=== PATIENT | female | born 1945 | race Caucasian/White ===

== ENCOUNTER 2020-07-16 08:00 | Inpatient (IN) | payer OTHER ==
[2020-07-04 13:11] VITALS: BMI 24.2
--- NOTE | 2020-07-16 07:56 | HP ---
[facility]ellite [facility] - Chief Complaint Chief Complaint: right knee pain - Past Medical History Allergies/Adverse Reactions: Allergies Allergy/AdvReac Type Severity Reaction Status Date / Time Latex, Natural Rubber Allergy Severe BLOOD Verified 07/04/20 13:00 BLISTERS povidone-iodine Allergy Severe BLOOD Verified 07/04/20 13:00 [From Betadine] BLISTES soap [From Betadine] Allergy Severe BLOOD Verified 07/04/20 13:00 BLISTERS - Current Medications Current Medications: Home Medications Medication Instructions Recorded Apixaban [Eliquis] 5 mg PO BID 06/26/19 Metformin HCl [Glucophage] 500 mg PO BID 06/26/19 Metoprolol Tartrate 25 mg PO DAILY 06/26/19 Ramipril 5 mg PO DAILY 06/26/19 Semaglutide [Ozempic] 1 mg SQ WEEKLY 06/26/19 Famotidine 20 mg PO BID 07/04/20 Satellite Physical Exam - Physical Examination General Appearance: Well Nourished, Well Developed, Alert & Oriented x3 ENT: Clear Lung: Normal air movement Extremities: Other (right knee- + swelling, + ttp ,decr rom ,nvi, xrays show grade 4 tricompartmental djd) Neurological: Intact, Alert, Oriented Satellite Impression/Plan - Impression/Plan Impression: right knee djd Operative Procedure: right henry tkr Date to be Performed: 07/16/20
[~2020-07-16 08:00] MED LIST: VANCOMYCIN 1,000 MG VIAL (RESTRICTED TO ID ONLY) IVPB ONE
[2020-07-16] MEDS ORDERED: SODIUM CHLORIDE 0.9% P/F 10 ML VIAL IJ ONE ×3 (08:35→12:43)
[2020-07-16] MEDS ORDERED: DEXAMETHASONE SOD PHOSPHATE 4 MG/1 ML VIAL ONE (08:35)
[2020-07-16] MEDS ORDERED: ceFAZolin SODIUM 1 GM VIAL ONE ×3 (08:35→10:17)
[2020-07-16] MEDS ORDERED: KETOROLAC TROMETHAMINE 30 MG/1 ML VIAL ONE (08:35)
[2020-07-16] MEDS ORDERED: LIDOCAINE HCL/PF 2% SDV 5ML VIAL ONE (08:39)
[2020-07-16] MEDS ORDERED: PROPOFOL 20 ML ONE ×2 (08:40→12:00)
[2020-07-16] MEDS ORDERED: MIDAZOLAM HCL 2 MG/2 ML SINGLE DOSE VIAL ONE ×2 (08:40→09:40)
--- OUTSIDE RECORDS SUMMARY | 2020-07-16 08:56 | XMS ---
:1945 Author Organization [facility] Care Team Providers Name Role Phone [facility], [id number] Unavailable Unavailable BROWN KIDD Unavailable Unavailable THANNEER CORKY, CORKY Unavailable Unavailable Osvaldo, Jenifer GAME TRAPPER Unavailable Unavailable Osvaldo, Jenifer GAME TRAPPER Unavailable Unavailable Osvaldo, Jenifer GAME TRAPPER Unavailable Unavailable Osvaldo, Jenifer GAME TRAPPER Unavailable Unavailable Hutchins, Francisco Unavailable Unavailable Hutchins, Francisco Unavailable Unavailable Hutchins, Francisco Unavailable Unavailable Hutchins, Francisco Unavailable Unavailable Hutchins, Francisco Unavailable Unavailable Hutchins, Francisco Unavailable Unavailable Hutchins, Francisco Unavailable Unavailable Hutchins, Francisco Unavailable Unavailable Hutchins, Francisco Unavailable Unavailable Hutchins, Francisco Unavailable Unavailable Hutchins, Francisco Unavailable Unavailable Re-disclosure Warning The records that you are about to access may contain information from federally- assisted alcohol or drug abuse programs. If such information is present, then the following federally mandated warning applies: This information has been disclosed to you from records protected by federal confidentiality rules (42 CFR part 2). The federal rules prohibit you from making any further disclosure of this information unless further disclosure is expressly permitted by the written consent of the person to whom it pertains or as otherwise permitted by 42 CFR part 2. A general authorization for the release of medical or other information is NOT sufficient for this purpose. The Federal rules restrict any use of the information to criminally investigate or prosecute any alcohol or drug abuse patient.The records that you are about to access may contain highly sensitive health information, the redisclosure of which is protected by Article 27-F of the [facility] Public Health law. If you continue you may haveaccess to information: Regarding HIV / AIDS; Provided by facilities licensed or operated by the [facility] Office of Mental Health; or Provided by the [facility] Office for People With Developmental Disabilities. If such information is present, then the following [facility] mandated warning applies: This information has been disclosed to you from confidential records which are protected by state law. State law prohibits you from making any further disclosure of this information without the specific written consent of the person to whom it pertains, or as otherwise permitted by law. Any unauthorized further disclosure in violation of state law may result in a fine or care home sentence or both. A general authorization for the release of medical or other information is NOT sufficient authorization for further disclosure. Encounters Encounter Providers Location Date Indications Data Source(s ) Attender: Jenifer 07/12/2020 [place] (Avi roadnaye Riley NP 12:00:00 AM EDT Medical S [facility]) Office Attender: Jenifer Riley NP 07/12/2020 12:00:00 AM EDT [facility] ([facility]) Office Attender: Jenifer Riley NP 07/12/2020 12:00:00 AM EDT [facility] ([facility]) Office Attender: Jenifer Riley NP 07/12/2020 12:00:00 AM EDT [facility] ([facility]) Office Attender: Jenifer Riley NP 07/12/2020 12:00:00 AM EDT [facility]) Office Attender: Jenifer Riley NP 07/12/2020 12:00:00 AM EDT [facility] ([facility]) Office Attender: Jenifer Riley NP 07/12/2020 12:00:00 AM EDT [facility]) Office Attender: Jenifer Riley NP 07/12/2020 12:00:00 AM EDT [facility] ([facility]) Office Attender: Jenifer Riley NP 07/12/2020 12:00:00 AM EDT [facility] ([facility]) Office Attender: Jenifer Riley NP 07/12/2020 12:00:00 AM EDT [facility]) Office Attender: Jenifer Riley NP 07/12/2020 12:00:00 AM EDT [facility]) Office Attender: Francisco Hutchins 07/05/2020 12:00:00 AM EDT [facility]) Office Attender: Francisco Hutchins 07/05/2020 12:00:00 AM EDT [facility]) Office Attender: Francisco Hutchins 07/05/2020 12:00:00 AM EDT [facility]) Office Attender: Francisco Hutchins 07/05/2020 12:00:00 AM EDT [facility] ([facility]) Office Attender: Francisco Hutchins 07/05/2020 12:00:00 AM EDT [facility]) Office Attender: Francisco Hutchins 07/05/2020 12:00:00 AM EDT [facility]) Office Attender: Francisco Hutchins 07/05/2020 12:00:00 AM EDT [facility]) Office Attender: Francisco Hutchins 07/05/2020 12:00:00 AM EDT [facility]) Office Attender: Francisco Hutchins 07/05/2020 12:00:00 AM EDT [facility]) Office Attender: Francisco Hutchins 07/05/2020 12:00:00 AM EDT [facility] ([facility]) Office Attender: Francisco Hutchins 07/05/2020 12:00:00 AM EDT [facility] ([facility]) Office Outpatient Attender: BROWN Bruce 05/28/2020 03:41:00 PM [facility] LOPEZdmitter: BROWN BENITEZ [facility] BROWNReferrer: BROWN DASILVA Attender: Jenifer Riley NP 05/28/2020 12:00:00 AM [facility] ([facility]) Office Attender: Jenifer Riley NP 05/28/2020 12:00:00 AM EDT [facility] ([facility]) Office Attender: Jenifer Riley NP 05/28/2020 12:00:00 AM EDT [facility] ([facility]) Office Attender: Jenifer Riley NP 05/28/2020 12:00:00 AM EDT [facility] ([facility]) Office Attender: Jenifer Riley NP 05/28/2020 12:00:00 AM EDT [facility] ([facility]) Office Attender: Jenifer Riley NP 05/28/2020 12:00:00 AM EDT [facility] ([facility]) Office Attender: Jenifer Riley NP 05/28/2020 12:00:00 AM EDT [facility]) Office Attender: Jenifer Riley NP 05/28/2020 12:00:00 AM EDT [facility] ([facility]) Office Attender: Jenifer Riley NP 05/28/2020 12:00:00 AM EDT [facility]) Office Attender: Jenifer Riley NP 05/28/2020 12:00:00 AM EDT [facility] ([facility]) Office Attender: Jenifer Riley NP 05/28/2020 12:00:00 AM EDT [facility] ([facility]) Office Outpatient Attender: MHAW9 [facility] 12/19/2019 01:06:58 PM [facility]) Patient admitted. Outpatient Attender: CORKY Bruce 06/09/2019 09:02:00 AM [facility] MIKAELAdmitter: [facility]ORK[facility] LEEANN BEASLEYeferrer: CORKY FRIED Immunizations Vaccine Date Status Description Data Source(s) IIV3 09/09/2018 12:00:00 AM completed [facility] N ([facility] EST Service) IIV3 09/09/2018 12:00:00 AM completed [facility] N ([facility] EST Service) IIV3 09/09/2018 12:00:00 AM completed [facility] N ([facility]) IIV3 09/09/2018 12:00:00 AM completed [facility] N ([facility] EST Service) Medications Medication Brand Start Product Dose Route Administrative Pharmacy St at Indications Reaction Description Data Name Date Form Instructions Instructions Source(s) metoprolol METOPR 05/28/ TABLET, 30 complet METO PROLOL MEDGEN succinate OLOL 2020 EXTENDED ed SUCCINATE E R ([facility] 25 MG SUCCIN 12:00: RELEASE Medical Extended ATE 00 AM Service) Release ER:866 EDT Oral Tablet 430 METOPROLOL SUCCINATE ER:[id number] Budesonide SYMBIC 05/28/ AEROSOL 1 complet SYMB ICORT MEDGEN 0.16 ORT:59 2019 ed ([facility] MG/ACTUAT / 7829 12:00: Medica l formoterol 00 AM Service) 0.0045 EDT MG/ACTUAT Inhalant Powder SYMBICORT:5 27050 apixaban 5 ELIQUI 05/28/ TABLET 60 complet ELIQU IS MEDGEN MG Oral S:1364 2019 ed ([facility] Tablet 445 12:00: Medical ELIQUIS:136 00 AM Service ) 4445 EDT OZEMPIC (05/28/ SOLUTION 2 complet OZEMP IC (1 MEDGEN MG 2020 ed MG DOSE) ([facility] DOSE): 12:00: Medica l 17 00 AM Service) EDT Ramipril 5 RAMIPR 05/28/ CAPSULE 30 complet RAMI PRIL MEDGEN MG Oral IL:198 2019 ed ([facility] Capsule 189 12:00: Medical RAMIPRIL:19 00 AM Service ) 8189 EDT apixaban 5 ELIQUI 05/28/ TABLET 60 complet ELIQU IS MEDGEN MG Oral S:1364 2019 ed ([facility] Tablet 445 12:00: Medical ELIQUIS:136 00 AM Service ) 4445 EDT metoprolol METOPR 05/28/ TABLET, 30 complet METO PROLOL MEDGEN succinate OLOL 2019 EXTENDED ed SUCCINATE E R ([facility] 25 MG SUCCIN 12:00: RELEASE Medical Extended ATE 00 AM Service) Release ER:866 EDT Oral Tablet 430 METOPROLOL SUCCINATE ER:[id number] OZEMPIC (1 05/28/ SOLUTION 2 complet OZEMP IC (1 MED[facility] MG 2020 ed MG DOSE) ([facility] DOSE): 12:00: Medica l 17 00 AM Service) EDT 200 ACTUAT PROAIR 05/28/ AEROSOL 1 complet PROA IR HFA [facility] Albuterol HFA:74 2019 ed ([place] 0.09 5679 12:00: Medical MG/ACTUAT 00 AM Service) Metered EDT Dose Inhaler PROAIR HFA:[id number] apixaban 5 ELIQUI 05/28/ TABLET 60 complet ELIQU IS MEDGEN MG Oral S:1364 2019 ed ([facility] Tablet 445 12:00: Medical ELIQUIS:136 00 AM Service ) 4445 EDT metoprolol METOPR 05/28/ TABLET, 30 complet METO PROLOL MEDGEN succinate OLOL 2020 EXTENDED ed SUCCINATE E R ([facility] 25 MG SUCCIN 12:00: RELEASE Medical Extended ATE 00 AM Service) Release ER:866 EDT Oral Tablet 430 METOPROLOL SUCCINATE ER:[id number] metoprolol METOPR 05/28/ TABLET, 30 complet METO PROLOL MEDGEN succinate OLOL 2019 EXTENDED ed SUCCINATE E R ([facility] 25 MG SUCCIN 12:00: RELEASE Medical Extended ATE 00 AM Service) Release ER:866 EDT Oral Tablet 430 METOPROLOL SUCCINATE ER:[id number] apixaban 5 ELIQUI 05/28/ TABLET 60 complet ELIQU IS MEDGEN MG Oral S:1364 2019 ed ([facility] Tablet 445 12:00: Medical ELIQUIS:136 00 AM Service ) 4445 EDT 200 ACTUAT PROAIR 05/28/ AEROSOL 1 complet PROA IR HFA MEDGEN Albuterol HFA:74 2019 ed ([place] 0.09 5679 12:00: Medical MG/ACTUAT 00 AM Service) Metered EDT Dose Inhaler PROAIR HFA:786469 OZEMPIC (1 05/28/ SOLUTION 2 complet OZEMP IC (1 MEDGEN MG 2020 ed MG DOSE) ([facility] DOSE): 12:00: Medica l 17 00 AM Service) EDT Ramipril 5 RAMIPR 05/28/ CAPSULE 30 complet RAMI PRIL MEDGEN MG Oral IL:198 2019 ed ([facility] Capsule 189 12:00: Medical RAMIPRIL:19 00 AM Service ) 8189 EDT Budesonide SYMBIC 05/28/ AEROSOL 1 complet SYMB ICORT MEDGEN 0.16 ORT:59 2019 ed ([facility] MG/ACTUAT / 7829 12:00: Medica l formoterol 00 AM Service) 0.0045 EDT MG/ACTUAT Inhalant Powder SYMBICORT:5 51898 200 ACTUAT PROAIR 05/28/ AEROSOL 1 complet PROA IR HFA MED[facility] Albuterol HFA:74 2019 ed ([place] 0.09 5679 12:00: Medical MG/ACTUAT 00 AM Service) Metered EDT Dose Inhaler PROAIR HFA:930535 OZEMPIC (1 05/28/ SOLUTION 2 complet OZEMP IC (1 MEDGEN MG 2020 ed MG DOSE) ([facility] DOSE): 12:00: Medica l 17 00 AM Service) EDT 200 ACTUAT PROAIR 05/28/ AEROSOL 1 complet PROA IR HFA MED[facility] Albuterol HFA:74 2019 ed ([place] 0.09 5679 12:00: Medical MG/ACTUAT 00 AM Service) Metered EDT Dose Inhaler PROAIR HFA:860395 Ramipril 5 RAMIPR 05/28/ CAPSULE 30 complet RAMI PRIL MEDGEN MG Oral IL:198 2019 ed ([facility] Capsule 189 12:00: Medical RAMIPRIL:19 00 AM Service ) 8189 EDT Budesonide SYMBIC 05/28/ AEROSOL 1 complet SYMB ICORT MEDGEN 0.16 ORT:59 2019 ed ([facility] MG/ACTUAT / 7829 12:00: Medica l formoterol 00 AM Service) 0.0045 EDT MG/ACTUAT Inhalant Powder SYMBICORT:5 87952 Budesonide SYMBIC 05/28/ AEROSOL 1 complet SYMB ICORT MEDGEN 0.16 ORT:59 2019 ed ([facility] MG/ACTUAT / 7829 12:00: Medica l formoterol 00 AM Service) 0.0045 EDT MG/ACTUAT Inhalant Powder SYMBICORT:5 30998 Ramipril 5 RAMIPR 05/28/ CAPSULE 30 complet RAMI PRIL MEDGEN MG Oral IL:198 2019 ed ([facility] Capsule 189 12:00: Medical RAMIPRIL:19 00 AM Service ) 8189 EDT Doxepin DOXEPI 11/23/ CAPSULE 30 complet DOXEPIN MEDGEN Hydrochlori N:1000 2019 ed ([facility] [address] de 10 MG 048 12:00: Medical Oral 00 AM Service) Capsule EST DOXEPIN:100 0048 Doxepin DOXEPI 11/23/ CAPSULE 30 complet DOXEPIN MEDGEN Hydrochlori N:1000 2019 ed ([address] de 10 MG 048 12:00: Medical Oral 00 AM Service) Capsule EST DOXEPIN:100 0048 Doxepin DOXEPI 11/23/ CAPSULE 30 complet DOXEPIN MEDGEN Hydrochlori N:1000 2019 ed ([address] de 10 MG 048 12:00: Medical Oral 00 AM Service) Capsule EST DOXEPIN:100 0048 Doxepin DOXEPI 11/23/ CAPSULE 30 complet DOXEPIN MEDGEN Hydrochlori N:1000 2019 ed ([facility] way de 10 MG 048 12:00: Medical Oral 00 AM Service) Capsule EST DOXEPIN:100 0048 apixaban 5 ELIQUI 07/25/ TABLET 60 complet ELIQU IS MEDGEN MG Oral S:[id number] ed ([facility] Tablet 447 12:00: Medical [Eliquis] 00 AM Service) ELIQUIS:136 EDT 4447 24 HR METOPR 07/25/ TABLET, 30 complet METOPROLO L MEDGEN metoprolol OLOL 2019 EXTENDED ed SUCCINATE ER ([facility] succinate SUCCIN 12:00: RELEASE Med ical 25 MG ATE 00 AM Service) Extended ER:866 EDT Release 427 Oral Tablet METOPROLOL SUCCINATE ER:[id number] apixaban 5 ELIQUI 07/25/ TABLET 60 complet ELIQU IS MEDGEN MG Oral S:1363 2018 ed ([facility] Tablet 447 12:00: Medical [Eliquis] 00 AM Service) ELIQUIS:136 EDT 4447 24 HR METOPR 07/25/ TABLET, 30 complet METOPROLO L MEDGEN metoprolol OLOL 2018 EXTENDED ed SUCCINATE ER ([facility] succinate SUCCIN 12:00: RELEASE Med ical 25 MG ATE 00 AM Service) Extended ER:866 EDT Release 427 Oral Tablet METOPROLOL SUCCINATE ER:035518 apixaban 5 ELIQUI 07/25/ TABLET 60 complet ELIQU IS MEDGEN MG Oral S:1363 2018 ed ([facility] Tablet 447 12:00: Medical [Eliquis] 00 AM Service) ELIQUIS:136 EDT 4447 24 HR METOPR 07/25/ TABLET, 30 complet METOPROLO L MED[facility] metoprolol OLOL 2019 EXTENDED ed SUCCINATE ER ([facility] succinate SUCCIN 12:00: RELEASE Med ical 25 MG ATE 00 AM Service) Extended ER:866 EDT Release 427 Oral Tablet METOPROLOL SUCCINATE ER:[id number] apixaban 5 ELIQUI 07/25/ TABLET 60 complet ELIQU IS MEDGEN MG Oral S:1363 2018 ed ([facility] Tablet 447 12:00: Medical [Eliquis] 00 AM Service) ELIQUIS:136 EDT 4447 24 HR METOPR 07/25/ TABLET, 30 complet METOPROLO L MED[facility] metoprolol OLOL 2019 EXTENDED ed SUCCINATE ER ([facility] succinate SUCCIN 12:00: RELEASE Med ical 25 MG ATE 00 AM Service) Extended ER:866 EDT Release 427 Oral Tablet METOPROLOL SUCCINATE ER:050908 pitavastati LIVALO 09/09/ TABLET 90 complet LIVA LO MEDGEN n 2 MG Oral :59537 2017 ed ([facility] Tablet 0 12:00: Medical [Livalo] 00 AM Service) LIVALO:8616 EST 50 pitavastati LIVALO 09/09/ TABLET 90 complet LIVA LO MEDGEN n 2 MG Oral :16540 2017 ed ([facility] [address] Tablet 0 12:00: Medical [Livalo] 00 AM Service) LIVALO:8616 EST 50 pitavastati LIVALO 09/09/ TABLET 90 complet LIVA LO MEDGEN n 2 MG Oral :27439 2017 ed ([facility] [address] Tablet 0 12:00: Medical [Livalo] 00 AM Service) LIVALO:8616 EST 50 pitavastati LIVALO 09/09/ TABLET 90 complet LIVA LO MEDGEN n 2 MG Oral :67295 2017 ed ([facility] [address] Tablet 0 12:00: Medical [Livalo] 00 AM Service) LIVALO:8616 EST 50 Insurance Providers Payer name Policy type Policy ID Covered Covered constitution party's Policy P michael / Coverage constitution party ID relationship to [place]ar Inf ormation type villar MEDICAID OF [id number] 1 [id number] [place] [id number] 1 [id number] PART B 4 DOWNSTATE MEDICARE [id number] SP [id number] 84 4 MEDICAID [id number] SP [id number] MEDICARE [id number] SP [id number] 84 4 M [id number] 01 [id number] 84 4 W [id number] 01 [id number] 84 4 Problems, Conditions, and Diagnoses Code Display Name Description Problem Type Effective Data Dates Source(s) R94.31 Abnormal ABNORMAL Problem 05/28/2020 [facility] electrocardiogram ELECTROCARDIOGRAM 12:00:00 AM ([facility] [ECG] [EKG] [ECG] [EKG] EDT Medical Service) R94.31 Abnormal ABNORMAL Problem 05/28/2020 [facility] electrocardiogram ELECTROCARDIOGRAM 12:00:00 AM ([facility] [ECG] [EKG] [ECG] [EKG] EDT Medical Service) R94.31 Abnormal ABNORMAL Problem 05/28/2020 [facility] electrocardiogram ELECTROCARDIOGRAM 12:00:00 AM ([facility] [ECG] [EKG] [ECG] [EKG] EDT Medical Service) R94.31 Abnormal ABNORMAL Problem 05/28/2020 [facility] electrocardiogram ELECTROCARDIOGRAM 12:00:00 AM ([facility] [ECG] [EKG] [ECG] [EKG] EDT Medical Service) I48.0 Paroxysmal atrial PAROXYSMAL ATRIAL Problem 11/23/2019 [facility] fibrillation FIBRILLATION 12:00:00 AM ([facility] Medical Service) F41.9 Anxiety disorder, ANXIETY DISORDER, Problem 11/23/2019 [facility] unspecified UNSPECIFIED 12:00:00 AM ([facility] Medical Service) I48.0 Paroxysmal atrial PAROXYSMAL ATRIAL Problem 11/23/2019 [facility] fibrillation FIBRILLATION 12:00:00 AM ([facility] Medical Service) F41.9 Anxiety disorder, ANXIETY DISORDER, Problem 11/23/2019 [facility] unspecified UNSPECIFIED 12:00:00 AM ([facility] Medical Service) I48.0 Paroxysmal atrial PAROXYSMAL ATRIAL Problem 11/23/2019 [facility] fibrillation FIBRILLATION 12:00:00 AM ([facility] Medical Service) F41.9 Anxiety disorder, ANXIETY DISORDER, Problem 11/23/2019 [facility] unspecified UNSPECIFIED 12:00:00 AM ([facility] Medical Service) I48.0 Paroxysmal atrial PAROXYSMAL ATRIAL Problem 11/23/2019 [facility] fibrillation FIBRILLATION 12:00:00 AM ([facility] Medical Service) F41.9 Anxiety disorder, ANXIETY DISORDER, Problem 11/23/2019 [facility] unspecified UNSPECIFIED 12:00:00 AM ([facility] Medical Service) M25.50 Pain in unspecified PAIN IN UNSPECIFIED Problem 019 MEDGEN joint JOINT 12:00:00 AM ([facility] Medical Service) M25.50 Pain in unspecified PAIN IN UNSPECIFIED Problem 019 MEDGEN joint JOINT 12:00:00 AM ([facility] Medical Service) M25.50 Pain in unspecified PAIN IN UNSPECIFIED Problem 019 MEDGEN joint JOINT 12:00:00 AM ([facility] Medical Service) M25.50 Pain in unspecified PAIN IN UNSPECIFIED Problem 019 MEDGEN joint JOINT 12:00:00 AM ([facility] EDT Medical Service) J06.9 Acute upper ACUTE UPPER Problem 11/19/2018 [facility] respiratory RESPIRATORY 12:00:00 AM ([facility] infection, INFECTION, EST Medical unspecified UNSPECIFIED Service) J06.9 Acute upper ACUTE UPPER Problem 11/19/2018 [facility] respiratory RESPIRATORY 12:00:00 AM ([facility] infection, INFECTION, EST Medical unspecified UNSPECIFIED Service) J06.9 Acute upper ACUTE UPPER Problem 11/19/2018 [facility] respiratory RESPIRATORY 12:00:00 AM ([facility] infection, INFECTION, EST Medical unspecified UNSPECIFIED Service) J06.9 Acute upper ACUTE UPPER Problem 11/19/2018 [facility] respiratory RESPIRATORY 12:00:00 AM ([facility] infection, INFECTION, EST Medical unspecified UNSPECIFIED Service) N32.81 Overactive bladder OVERACTIVE BLADDER Problem 8 MEDGEN 12:00:00 AM ([facility] Medical Service) N39.3 Stress incontinence STRESS INCONTINENCE Problem 018 MEDGEN (female) (male) (FEMALE) (MALE) 12:00:00 AM ([facility] Medical Service) N32.81 Overactive bladder OVERACTIVE BLADDER Problem 8 MEDGEN 12:00:00 AM ([facility] Medical Service) N39.3 Stress incontinence STRESS INCONTINENCE Problem 018 MEDGEN (female) (male) (FEMALE) (MALE) 12:00:00 AM ([facility] Medical Service) N32.81 Overactive bladder OVERACTIVE BLADDER Problem 8 MEDGEN 12:00:00 AM ([facility] Medical Service) N39.3 Stress incontinence STRESS INCONTINENCE Problem 018 MEDGEN (female) (male) (FEMALE) (MALE) 12:00:00 AM ([facility] Medical Service) N32.81 Overactive bladder OVERACTIVE BLADDER Problem 8 MEDGEN 12:00:00 AM ([facility] Medical Service) N39.3 Stress incontinence STRESS INCONTINENCE Problem 018 MEDGEN (female) (male) (FEMALE) (MALE) 12:00:00 AM ([facility] Medical Service) R10.31 Right lower quadrant RIGHT LOWER QUADRANT Problem 09/09 MEDGEN pain PAIN 12:00:00 AM ([facility] Medical Service) R10.31 Right lower quadrant RIGHT LOWER QUADRANT Problem 09/09 MEDGEN pain PAIN 12:00:00 AM ([facility] Medical Service) R10.31 Right lower quadrant RIGHT LOWER QUADRANT Problem 09/09 MEDGEN pain PAIN 12:00:00 AM ([facility] Medical Service) R10.31 Right lower quadrant RIGHT LOWER QUADRANT Problem 09/09 MEDGEN pain PAIN 12:00:00 AM ([facility] Medical Service) I10 Essential (primary) ESSENTIAL (PRIMARY) Problem 018 MEDGEN hypertension HYPERTENSION 12:00:00 AM ([facility] Medical Service) I10 Essential (primary) ESSENTIAL (PRIMARY) Problem 018 MEDGEN hypertension HYPERTENSION 12:00:00 AM ([facility] Medical Service) I10 Essential (primary) ESSENTIAL (PRIMARY) Problem 018 MEDGEN hypertension HYPERTENSION 12:00:00 AM ([facility] Medical Service) I10 Essential (primary) ESSENTIAL (PRIMARY) Problem 018 MEDGEN hypertension HYPERTENSION 12:00:00 AM ([facility] Medical Service) N76.0 Acute vaginitis ACUTE VAGINITIS Problem 07/19/2017 MEDG EN 12:00:00 AM ([facility] Medical Service) N76.0 Acute vaginitis ACUTE VAGINITIS Problem 07/19/2017 MEDG EN 12:00:00 AM ([facility] Medical Service) N76.0 Acute vaginitis ACUTE VAGINITIS Problem 07/19/2017 MEDG EN 12:00:00 AM ([facility] Medical Service) N76.0 Acute vaginitis ACUTE VAGINITIS Problem 07/19/2017 MEDG EN 12:00:00 AM ([facility] Medical Service) Z13.89 Encounter for ENCOUNTER FOR Problem 02/23/2017 [facility] screening for other SCREENING FOR OTHER 12:00:0 0 AM ([facility] disorder DISORDER [facility] Medical Service) Z13.89 Encounter for ENCOUNTER FOR Problem 02/23/2017 MED[facility] screening for other SCREENING FOR OTHER 12:00:0 0 AM ([facility] disorder DISORDER T Medical Service) Z13.89 Encounter for ENCOUNTER FOR Problem 02/23/2017 MED[facility] screening for other SCREENING FOR OTHER 12:00:0 0 AM ([facility] disorder DISORDER EDT Medical Service) Z13.89 Encounter for ENCOUNTER FOR Problem 02/23/2017 [facility] screening for other SCREENING FOR OTHER 12:00:0 0 AM ([facility] disorder DISORDER EDT Medical Service) E11.9 Type 2 diabetes TYPE 2 DIABETES Problem 07/08/2016 MEDG EN mellitus without MELLITUS WITHOUT 12:00:00 AM ( [facility] complications COMPLICATIONS EDT Medical Service) E11.9 Type 2 diabetes TYPE 2 DIABETES Problem 07/08/2016 MEDG EN mellitus without MELLITUS WITHOUT 12:00:00 AM ( [facility] complications COMPLICATIONS EDT Medical Service) E11.9 Type 2 diabetes TYPE 2 DIABETES Problem 07/08/2016 MEDG EN mellitus without MELLITUS WITHOUT 12:00:00 AM ( [facility] complications COMPLICATIONS EDT Medical Service) E11.9 Type 2 diabetes TYPE 2 DIABETES Problem 07/08/2016 MEDG EN mellitus without MELLITUS WITHOUT 12:00:00 AM ( [facility] complications COMPLICATIONS EDT Medical Service) E78.2 Mixed hyperlipidemia MIXED HYPERLIPIDEMIA Problem 05/08 MEDGEN 12:00:00 AM ([facility] EDT Medical Service) J44.9 Chronic obstructive CHRONIC OBSTRUCTIVE Problem 016 MED[facility] pulmonary disease, PULMONARY DISEASE, 12:00:00 AM ([facility] unspecified UNSPECIFIED EDT Medical Service) E78.2 Mixed hyperlipidemia MIXED HYPERLIPIDEMIA Problem 05/08 MEDGEN 12:00:00 AM ([facility] EDT Medical Service) J44.9 Chronic obstructive CHRONIC OBSTRUCTIVE Problem 016 MEDGEN pulmonary disease, PULMONARY DISEASE, 12:00:00 AM ([facility] unspecified UNSPECIFIED EDT Medical Service) E78.2 Mixed hyperlipidemia MIXED HYPERLIPIDEMIA Problem 05/08 MEDGEN 12:00:00 AM ([facility] EDT Medical Service) J44.9 Chronic obstructive CHRONIC OBSTRUCTIVE Problem 016 MEDGEN pulmonary disease, PULMONARY DISEASE, 12:00:00 AM ([facility] unspecified UNSPECIFIED EDT Medical Service) E78.2 Mixed hyperlipidemia MIXED HYPERLIPIDEMIA Problem 05/08 MEDGEN 12:00:00 AM ([facility] EDT Medical Service) J44.9 Chronic obstructive CHRONIC OBSTRUCTIVE Problem 016 MEDGEN pulmonary disease, PULMONARY DISEASE, 12:00:00 AM ([facility] unspecified UNSPECIFIED EDT Medical Service) Z01.810 Encounter for ENCOUNTER FOR Diagnosis 05/28/2020 [facility] preprocedural PREPROCEDURAL 03:41:00 PM [facility] cardiovascular CARDIOVASCULAR T [facility] l examination EXAMINATION Center Z01.818 Encounter for other ENCOUNTER FOR OTHER Diagnosis preprocedural PREPROCEDURAL 09:02:00 AM [facility] examination EXAMINATION [facility] Medical [place] J44.9 Chronic obstructive CHRONIC OBSTRUCTIVE Diagnosis pulmonary disease, PULMONARY DISEASE, 09:02:00 AM [facility] unspecified UNSPECIFIED [facility] Surgeries/Procedures Procedure Description Date Indications Data Source(s) Documentation of current 07/05/2020 MED GEN (Jonny medications (procedure) 12:00:00 AM EDT edical Service) Documentation of current 07/05/2020 MED GEN (Dante medications (procedure) 12:00:00 AM EDT edical Service) Documentation of current 07/05/2020 MED GEN (Dante medications (procedure) 12:00:00 AM EDT edical Service) Documentation of current 07/05/2020 MED GEN (Dante medications (procedure) 12:00:00 AM EDT edical Service) Documentation of current 07/05/2020 MED GEN (Jonny medications (procedure) 12:00:00 AM EDT edical Service) Documentation of current 07/05/2020 MED GEN (Jonny medications (procedure) 12:00:00 AM EDT edical Service) Documentation of current 07/05/2020 MED GEN (Jonny medications (procedure) 12:00:00 AM EDT edical Service) Documentation of current 07/05/2020 MED GEN (Jonny medications (procedure) 12:00:00 AM EDT edical Service) Documentation of current 07/05/2020 MED GEN (Dante medications (procedure) 12:00:00 AM EDT edical Service) Documentation of current 07/05/2020 MED GEN (Jonny medications (procedure) 12:00:00 AM EDT edical Service) Documentation of current 07/05/2020 MED GEN (Jonny medications (procedure) 12:00:00 AM EDT edical Service) Documentation of current 07/05/2020 MED GEN (Dante medications (procedure) 12:00:00 AM EDT edical Service) Documentation of current 07/05/2020 MED GEN (Jonny medications (procedure) 12:00:00 AM EDT edical Service) Documentation of current 07/05/2020 MED GEN (Dante medications (procedure) 12:00:00 AM EDT edical Service) Documentation of current 05/28/2020 MED GEN (Jonny medications (procedure) 12:00:00 AM EDT edical Service) Documentation of current 05/28/2020 MED GEN (Dante medications (procedure) 12:00:00 AM EDT edical Service) Documentation of current 05/28/2020 MED GEN (Jonny medications (procedure) 12:00:00 AM EDT edical Service) Documentation of current 05/28/2020 MED GEN (Dante medications (procedure) 12:00:00 AM EDT edical Service) Documentation of current 05/28/2020 MED GEN (Jonny medications (procedure) 12:00:00 AM EDT edical Service) Documentation of current 05/28/2020 MED GEN (Jonny medications (procedure) 12:00:00 AM EDT edical Service) Documentation of current 05/28/2020 MED GEN (Dante medications (procedure) 12:00:00 AM EDT edical Service) Documentation of current 05/28/2020 MED GEN (Jonny medications (procedure) 12:00:00 AM EDT edical Service) Documentation of current 05/28/2020 MED GEN (Jonny medications (procedure) 12:00:00 AM EDT edical Service) Documentation of current 05/28/2020 MED GEN (Dante medications (procedure) 12:00:00 AM EDT edical Service) Documentation of current 05/28/2020 MED GEN (Dante medications (procedure) 12:00:00 AM EDT edical Service) Documentation of current 05/28/2020 MED GEN (Dante medications (procedure) 12:00:00 AM EDT edical Service) Documentation of current 05/28/2020 MED GEN (Jonny medications (procedure) 12:00:00 AM EDT edical Service) Documentation of current 05/28/2020 MED GEN (Jonny medications (procedure) 12:00:00 AM EDT edical Service) Documentation of current 05/28/2020 MED GEN (Dante medications (procedure) 12:00:00 AM EDT edical Service) Documentation of current 05/28/2020 MED GEN (Jonny medications (procedure) 12:00:00 AM EDT M edical Service) Documentation of current 11/23/2019 MED GEN (Dante medications (procedure) 12:00:00 AM EST edical Service) Documentation of current 11/23/2019 MED GEN (Jonny medications (procedure) 12:00:00 AM EST edical Service) Documentation of current 11/23/2019 MED GEN (Jonny medications (procedure) 12:00:00 AM EST edical Service) Documentation of current 11/23/2019 MED GEN (Dante medications (procedure) 12:00:00 AM EST edical Service) Documentation of current 11/23/2019 MED GEN (Dante medications (procedure) 12:00:00 AM EST edical Service) Documentation of current 11/23/2019 MED GEN (Jonny medications (procedure) 12:00:00 AM EST edical Service) Documentation of current 11/23/2019 MED GEN (Jonny medications (procedure) 12:00:00 AM EST edical Service) Documentation of current 11/23/2019 MED GEN (Dante medications (procedure) 12:00:00 AM EST edical Service) Documentation of current 11/23/2019 MED GEN (Jonny medications (procedure) 12:00:00 AM EST edical Service) Documentation of current 11/23/2019 MED GEN (Dante medications (procedure) 12:00:00 AM EST edical Service) Documentation of current 11/23/2019 MED GEN (Jonny medications (procedure) 12:00:00 AM EST edical Service) Documentation of current 11/23/2019 MED GEN (Dante medications (procedure) 12:00:00 AM EST edical Service) Documentation of current 11/23/2019 MED GEN (Dante medications (procedure) 12:00:00 AM EST edical Service) Documentation of current 11/23/2019 MED GEN (Dante medications (procedure) 12:00:00 AM EST edical Service) Documentation of current 11/23/2019 MED GEN (Jonny medications (procedure) 12:00:00 AM EST edical Service) Documentation of current 11/23/2019 MED GEN (Jonny medications (procedure) 12:00:00 AM EST edical Service) Documentation of current 11/23/2019 MED GEN (Dante medications (procedure) 12:00:00 AM EST M edical Service) Documentation of current 11/23/2019 MED GEN (Dante medications (procedure) 12:00:00 AM EST edical Service) Documentation of current 11/23/2019 MED GEN (Dante medications (procedure) 12:00:00 AM EST edical Service) Documentation of current 11/23/2019 MED GEN (Jonny medications (procedure) 12:00:00 AM EST edical Service) Documentation of current 11/23/2019 MED GEN (Dante medications (procedure) 12:00:00 AM [facility] edical Service) Documentation of current 11/23/2019 MED GEN (Jonny medications (procedure) 12:00:00 AM EST edical Service) Documentation of current 11/23/2019 MED GEN (Jonny medications (procedure) 12:00:00 AM EST edical Service) Documentation of current 11/23/2019 MED GEN (Jonny medications (procedure) 12:00:00 AM [facility] edical Service) Documentation of current 05/25/2019 MED GEN (Dante medications (procedure) 12:00:00 AM EDT edical Service) Documentation of current 05/25/2019 MED GEN (Dante medications (procedure) 12:00:00 AM EDT edical Service) Documentation of current 05/25/2019 MED GEN (Dante medications (procedure) 12:00:00 AM EDT edical Service) Documentation of current 05/25/2019 MED GEN (Dante medications (procedure) 12:00:00 AM EDT edical Service) Documentation of current 05/25/2019 MED GEN (Dante medications (procedure) 12:00:00 AM EDT edical Service) Documentation of current 05/25/2019 MED GEN (Dante medications (procedure) 12:00:00 AM EDT edical Service) Documentation of current 05/25/2019 MED GEN (Jonny medications (procedure) 12:00:00 AM EDT edical Service) Documentation of current 05/25/2019 MED GEN (Dante medications (procedure) 12:00:00 AM EDT edical Service) Documentation of current 05/25/2019 MED GEN (Dante medications (procedure) 12:00:00 AM EDT edical Service) Documentation of current 05/25/2019 MED GEN (Jonny medications (procedure) 12:00:00 AM EDT edical Service) Documentation of current 05/25/2019 MED GEN (Jonny medications (procedure) 12:00:00 AM EDT edical Service) Documentation of current 05/25/2019 MED GEN (Jonny medications (procedure) 12:00:00 AM EDT edical Service) Documentation of current 05/25/2019 MED GEN (Jonny medications (procedure) 12:00:00 AM EDT edical Service) Documentation of current 05/25/2019 MED GEN (Dante medications (procedure) 12:00:00 AM EDT edical Service) Documentation of current 05/25/2019 MED GEN (Jonny medications (procedure) 12:00:00 AM EDT edical Service) Documentation of current 05/25/2019 MED GEN (Dante medications (procedure) 12:00:00 AM EDT edical Service) Documentation of current 05/25/2019 MED GEN (Dante medications (procedure) 12:00:00 AM EDT edical Service) Documentation of current 05/25/2019 MED GEN (Jonny medications (procedure) 12:00:00 AM EDT edical Service) Documentation of current 05/25/2019 MED GEN (Dante medications (procedure) 12:00:00 AM EDT edical Service) Documentation of current 05/25/2019 MED GEN (Dante medications (procedure) 12:00:00 AM EDT edical Service) Documentation of current 05/25/2019 MED GEN (Jonny medications (procedure) 12:00:00 AM EDT edical Service) Documentation of current 05/25/2019 MED GEN (Dante medications (procedure) 12:00:00 AM EDT edical Service) Documentation of current 05/25/2019 MED GEN (Jonny medications (procedure) 12:00:00 AM EDT edical Service) Documentation of current 05/25/2019 MED GEN (Dante medications (procedure) 12:00:00 AM EDT edical Service) Documentation of current 05/25/2019 MED GEN (Jonny medications (procedure) 12:00:00 AM EDT edical Service) Documentation of current 05/25/2019 MED GEN (Jonny medications (procedure) 12:00:00 AM EDT edical Service) Documentation of current 05/25/2019 MED GEN (Jonny medications (procedure) 12:00:00 AM EDT edical Service) Documentation of current 05/25/2019 MED GEN (Dante medications (procedure) 12:00:00 AM EDT edical Service) Documentation of current 05/25/2019 MED GEN (Jonny medications (procedure) 12:00:00 AM EDT edical Service) Documentation of current 05/25/2019 MED GEN (Jonny medications (procedure) 12:00:00 AM EDT edical Service) Documentation of current 05/25/2019 MED GEN (Jonny medications (procedure) 12:00:00 AM EDT edical Service) Documentation of current 05/25/2019 MED GEN (Dante medications (procedure) 12:00:00 AM EDT edical Service) Documentation of current 05/25/2019 MED GEN (Dante medications (procedure) 12:00:00 AM EDT edical Service) Documentation of current 05/25/2019 MED GEN (Dante medications (procedure) 12:00:00 AM EDT edical Service) Documentation of current 05/25/2019 MED GEN (Jonny medications (procedure) 12:00:00 AM EDT edical Service) Documentation of current 05/25/2019 MED GEN (Dante medications (procedure) 12:00:00 AM EDT edical Service) Documentation of current 05/25/2019 MED GEN (Dante medications (procedure) 12:00:00 AM EDT edical Service) Documentation of current 05/25/2019 MED GEN (Dante medications (procedure) 12:00:00 AM EDT edical Service) Documentation of current 05/25/2019 MED GEN (Dante medications (procedure) 12:00:00 AM EDT edical Service) Documentation of current 05/25/2019 MED GEN (Jonny medications (procedure) 12:00:00 AM EDT edical Service) Documentation of current 05/25/2019 MED GEN (Dante medications (procedure) 12:00:00 AM EDT edical Service) Documentation of current 05/25/2019 MED GEN (Jonny medications (procedure) 12:00:00 AM EDT edical Service) Documentation of current 05/25/2019 MED GEN (Jonny medications (procedure) 12:00:00 AM EDT edical Service) Documentation of current 05/25/2019 MED GEN (Jonny medications (procedure) 12:00:00 AM EDT edical Service) Documentation of current 05/25/2019 MED GEN (Jonny medications (procedure) 12:00:00 AM EDT edical Service) Documentation of current 05/25/2019 MED GEN (Dante medications (procedure) 12:00:00 AM EDT edical Service) Documentation of current 05/25/2019 MED GEN (Jonny medications (procedure) 12:00:00 AM EDT edical Service) Documentation of current 05/25/2019 MED GEN (Dante medications (procedure) 12:00:00 AM EDT edical Service) Documentation of current 05/25/2019 MED GEN (Dante medications (procedure) 12:00:00 AM EDT edical Service) Documentation of current 05/25/2019 MED GEN (Dante medications (procedure) 12:00:00 AM EDT edical Service) Documentation of current 05/25/2019 MED GEN (Jonny medications (procedure) 12:00:00 AM EDT edical Service) Documentation of current 05/25/2019 MED GEN (Dante medications (procedure) 12:00:00 AM EDT edical Service) Documentation of current 05/25/2019 MED GEN (Jonny medications (procedure) 12:00:00 AM EDT edical Service) Documentation of current 05/25/2019 MED GEN (Jonny medications (procedure) 12:00:00 AM EDT edical Service) Documentation of current 05/25/2019 MED GEN (Dante medications (procedure) 12:00:00 AM EDT edical Service) Documentation of current 05/25/2019 MED GEN (Jonny medications (procedure) 12:00:00 AM EDT edical Service) Documentation of current 05/25/2019 MED GEN (Dante medications (procedure) 12:00:00 AM EDT edical Service) Documentation of current 05/25/2019 MED GEN (Dante medications (procedure) 12:00:00 AM EDT edical Service) Documentation of current 05/25/2019 MED GEN (Dante medications (procedure) 12:00:00 AM EDT edical Service) Documentation of current 05/25/2019 MED GEN (Dante medications (procedure) 12:00:00 AM EDT edical Service) Documentation of current 05/09/2019 MED GEN (Jonny medications (procedure) 12:00:00 AM EDT edical Service) Documentation of current 05/09/2019 MED GEN (Dante medications (procedure) 12:00:00 AM EDT edical Service) Documentation of current 05/09/2019 MED GEN (Jonny medications (procedure) 12:00:00 AM EDT edical Service) Documentation of current 05/09/2019 MED GEN (Dante medications (procedure) 12:00:00 AM EDT edical Service) Documentation of current 05/09/2019 MED GEN (Jonny medications (procedure) 12:00:00 AM EDT edical Service) Documentation of current 05/09/2019 MED GEN (Jonny medications (procedure) 12:00:00 AM EDT edical Service) Documentation of current 05/09/2019 MED GEN (Dante medications (procedure) 12:00:00 AM EDT edical Service) Documentation of current 05/09/2019 MED GEN (Dante medications (procedure) 12:00:00 AM EDT edical Service) Documentation of current 05/09/2019 MED GEN (Jonny medications (procedure) 12:00:00 AM EDT edical Service) Documentation of current 05/09/2019 MED GEN (Dante medications (procedure) 12:00:00 AM EDT edical Service) Documentation of current 05/09/2019 MED GEN (Jonny medications (procedure) 12:00:00 AM EDT edical Service) Documentation of current 05/09/2019 MED GEN (Dante medications (procedure) 12:00:00 AM EDT edical Service) Documentation of current 05/09/2019 MED GEN (Jonny medications (procedure) 12:00:00 AM EDT edical Service) Documentation of current 05/09/2019 MED GEN (Dante medications (procedure) 12:00:00 AM EDT edical Service) Documentation of current 05/09/2019 MED GEN (Dante medications (procedure) 12:00:00 AM EDT edical Service) Documentation of current 05/09/2019 MED GEN (Jonny medications (procedure) 12:00:00 AM EDT edical Service) Documentation of current 05/09/2019 MED GEN (Jonny medications (procedure) 12:00:00 AM EDT edical Service) Documentation of current 05/09/2019 MED GEN (Dante medications (procedure) 12:00:00 AM EDT edical Service) Documentation of current 05/09/2019 MED GEN (Jonny medications (procedure) 12:00:00 AM EDT edical Service) Documentation of current 05/09/2019 MED GEN (Dante medications (procedure) 12:00:00 AM EDT edical Service) Documentation of current 09/30/2018 MED GEN (Jonny medications (procedure) 12:00:00 AM EST edical Service) Documentation of current 09/30/2018 MED GEN (Dante medications (procedure) 12:00:00 AM EST edical Service) Documentation of current 09/30/2018 MED GEN (Dante medications (procedure) 12:00:00 AM EST edical Service) Documentation of current 09/30/2018 MED GEN (Jonny medications (procedure) 12:00:00 AM EST edical Service) Documentation of current 09/30/2018 MED GEN (Jonny medications (procedure) 12:00:00 AM EST edical Service) Documentation of current 09/30/2018 MED GEN (Jonny medications (procedure) 12:00:00 AM EST edical Service) Documentation of current 09/30/2018 MED GEN (Jonny medications (procedure) 12:00:00 AM EST edical Service) Documentation of current 09/30/2018 MED GEN (Jonny medications (procedure) 12:00:00 AM EST edical Service) Documentation of current 09/30/2018 MED GEN (Jonny medications (procedure) 12:00:00 AM EST edical Service) Documentation of current 09/30/2018 MED GEN (Jonny medications (procedure) 12:00:00 AM EST edical Service) Documentation of current 09/30/2018 MED GEN (Jonny medications (procedure) 12:00:00 AM EST edical Service) Documentation of current 09/30/2018 MED GEN (Jonny medications (procedure) 12:00:00 AM EST edical Service) Documentation of current 09/30/2018 MED GEN (Dante medications (procedure) 12:00:00 AM EST edical Service) Documentation of current 09/30/2018 MED GEN (Dante medications (procedure) 12:00:00 AM EST edical Service) Documentation of current 09/30/2018 MED GEN (Dante medications (procedure) 12:00:00 AM EST edical Service) Documentation of current 09/30/2018 MED GEN (Jonny medications (procedure) 12:00:00 AM EST edical Service) Documentation of current 09/30/2018 MED GEN (Jonny medications (procedure) 12:00:00 AM EST edical Service) Documentation of current 09/30/2018 MED GEN (Jonny medications (procedure) 12:00:00 AM EST edical Service) Documentation of current 09/30/2018 MED GEN (Jonny medications (procedure) 12:00:00 AM EST edical Service) Documentation of current 09/30/2018 MED GEN (Jonny medications (procedure) 12:00:00 AM EST edical Service) Documentation of current 09/30/2018 MED GEN (Dante medications (procedure) 12:00:00 AM EST edical Service) Documentation of current 09/30/2018 MED GEN (Jonny medications (procedure) 12:00:00 AM EST edical Service) Documentation of current 09/30/2018 MED GEN (Jonny medications (procedure) 12:00:00 AM EST edical Service) Documentation of current 09/30/2018 MED GEN (Jonny medications (procedure) 12:00:00 AM EST edical Service) Documentation of current 09/23/2018 MED GEN (Dante medications (procedure) 12:00:00 AM EST edical Service) Documentation of current 09/23/2018 MED GEN (Jonny medications (procedure) 12:00:00 AM EST edical Service) Documentation of current 09/23/2018 MED GEN (Dante medications (procedure) 12:00:00 AM EST edical Service) Documentation of current 09/23/2018 MED GEN (Dante medications (procedure) 12:00:00 AM EST edical Service) Documentation of current 09/23/2018 MED GEN (Dante medications (procedure) 12:00:00 AM EST edical Service) Documentation of current 09/23/2018 MED GEN (Dante medications (procedure) 12:00:00 AM EST edical Service) Documentation of current 09/23/2018 MED GEN (Dante medications (procedure) 12:00:00 AM EST edical Service) Documentation of current 09/23/2018 MED GEN (Jonny medications (procedure) 12:00:00 AM EST edical Service) Documentation of current 09/23/2018 MED GEN (Dante medications (procedure) 12:00:00 AM EST edical Service) Documentation of current 09/23/2018 MED GEN (Dante medications (procedure) 12:00:00 AM EST edical Service) Documentation of current 09/23/2018 MED GEN (Dante medications (procedure) 12:00:00 AM EST edical Service) Documentation of current 09/23/2018 MED GEN (Dante medications (procedure) 12:00:00 AM EST edical Service) Documentation of current 09/23/2018 MED GEN (Jonny medications (procedure) 12:00:00 AM EST edical Service) Documentation of current 09/23/2018 MED GEN (Jonny medications (procedure) 12:00:00 AM EST edical Service) Documentation of current 09/23/2018 MED GEN (Dante medications (procedure) 12:00:00 AM EST edical Service) Documentation of current 09/23/2018 MED GEN (Dante medications (procedure) 12:00:00 AM EST edical Service) Documentation of current 09/23/2018 MED GEN (Dante medications (procedure) 12:00:00 AM EST edical Service) Documentation of current 09/23/2018 MED GEN (Jonny medications (procedure) 12:00:00 AM EST edical Service) Documentation of current 09/23/2018 MED GEN (Dante medications (procedure) 12:00:00 AM EST edical Service) Documentation of current 09/23/2018 MED GEN (Jonny medications (procedure) 12:00:00 AM EST edical Service) Documentation of current 09/23/2018 MED GEN (Jonny medications (procedure) 12:00:00 AM EST edical Service) Documentation of current 09/23/2018 MED GEN (Jonny medications (procedure) 12:00:00 AM EST edical Service) Documentation of current 09/23/2018 MED GEN (Dante medications (procedure) 12:00:00 AM EST edical Service) Documentation of current 09/23/2018 MED GEN (Jonny medications (procedure) 12:00:00 AM EST edical Service) Documentation of current 09/23/2018 MED GEN (Dante medications (procedure) 12:00:00 AM EST edical Service) Documentation of current 09/23/2018 MED GEN (Dante medications (procedure) 12:00:00 AM EST edical Service) Documentation of current 09/23/2018 MED GEN (Dante medications (procedure) 12:00:00 AM EST edical Service) Documentation of current 09/23/2018 MED GEN (Jonny medications (procedure) 12:00:00 AM EST edical Service) Documentation of current 09/23/2018 MED GEN (Dante medications (procedure) 12:00:00 AM EST edical Service) Documentation of current 09/23/2018 MED GEN (Dante medications (procedure) 12:00:00 AM EST edical Service) Documentation of current 09/23/2018 MED GEN (Jonny medications (procedure) 12:00:00 AM EST edical Service) Documentation of current 09/23/2018 MED GEN (Dante medications (procedure) 12:00:00 AM EST edical Service) Documentation of current 09/23/2018 MED GEN (Jonny medications (procedure) 12:00:00 AM EST edical Service) Documentation of current 09/23/2018 MED GEN (Jonny medications (procedure) 12:00:00 AM EST edical Service) Documentation of current 09/23/2018 MED GEN (Jonny medications (procedure) 12:00:00 AM EST edical Service) Documentation of current 09/23/2018 MED GEN (Dante medications (procedure) 12:00:00 AM EST edical Service) Documentation of current 09/23/2018 MED GEN (Jonny medications (procedure) 12:00:00 AM EST edical Service) Documentation of current 09/23/2018 MED GEN (Jonny medications (procedure) 12:00:00 AM EST edical Service) Documentation of current 09/23/2018 MED GEN (Dante medications (procedure) 12:00:00 AM EST edical Service) Documentation of current 09/23/2018 MED GEN (Dante medications (procedure) 12:00:00 AM EST edical Service) Documentation of current 09/23/2018 MED GEN (Dante medications (procedure) 12:00:00 AM EST edical Service) Documentation of current 09/23/2018 MED GEN (Jonny medications (procedure) 12:00:00 AM EST edical Service) Documentation of current 09/23/2018 MED GEN (Jonny medications (procedure) 12:00:00 AM EST edical Service) Documentation of current 09/23/2018 MED GEN (Jonny medications (procedure) 12:00:00 AM EST edical Service) Documentation of current 09/09/2018 MED GEN (Jonny medications (procedure) 12:00:00 AM EST edical Service) Documentation of current 09/09/2018 MED GEN (Jonny medications (procedure) 12:00:00 AM EST edical Service) Documentation of current 09/09/2018 MED GEN (Jonny medications (procedure) 12:00:00 AM EST edical Service) Documentation of current 09/09/2018 MED GEN (Jonny medications (procedure) 12:00:00 AM EST edical Service) Documentation of current 09/09/2018 MED GEN (Jonny medications (procedure) 12:00:00 AM EST edical Service) Documentation of current 09/09/2018 MED GEN (Jonny medications (procedure) 12:00:00 AM EST edical Service) Documentation of current 09/09/2018 MED GEN (Dante medications (procedure) 12:00:00 AM EST edical Service) Documentation of current 09/09/2018 MED GEN (Dante medications (procedure) 12:00:00 AM EST edical Service) Documentation of current 12/18/2017 MED GEN (Jonny medications (procedure) 12:00:00 AM EST edical Service) Documentation of current 12/18/2017 MED GEN (Jonny medications (procedure) 12:00:00 AM EST edical Service) Documentation of current 12/18/2017 MED GEN (Dante medications (procedure) 12:00:00 AM EST edical Service) Documentation of current 12/18/2017 MED GEN (Dante medications (procedure) 12:00:00 AM EST edical Service) Documentation of current 12/18/2017 MED GEN (Dante medications (procedure) 12:00:00 AM EST edical Service) Documentation of current 12/18/2017 MED GEN (Dante medications (procedure) 12:00:00 AM EST edical Service) Documentation of current 12/18/2017 MED GEN (Jonny medications (procedure) 12:00:00 AM EST edical Service) Documentation of current 12/18/2017 MED GEN (Dante medications (procedure) 12:00:00 AM EST edical Service) Documentation of current 12/18/2017 MED GEN (Dante medications (procedure) 12:00:00 AM EST edical Service) Documentation of current 12/18/2017 MED GEN (Jonny medications (procedure) 12:00:00 AM EST edical Service) Documentation of current 12/18/2017 MED GEN (Jonny medications (procedure) 12:00:00 AM EST edical Service) Documentation of current 12/18/2017 MED GEN (Jonny medications (procedure) 12:00:00 AM EST edical Service) Documentation of current 12/18/2017 MED GEN (Jonny medications (procedure) 12:00:00 AM EST edical Service) Documentation of current 12/18/2017 MED GEN (Jonny medications (procedure) 12:00:00 AM EST edical Service) Documentation of current 12/18/2017 MED GEN (Dante medications (procedure) 12:00:00 AM EST edical Service) Documentation of current 12/18/2017 MED GEN (Jonny medications (procedure) 12:00:00 AM EST edical Service) Documentation of current 12/18/2017 MED GEN (Dante medications (procedure) 12:00:00 AM EST edical Service) Documentation of current 12/18/2017 MED GEN (Jonny medications (procedure) 12:00:00 AM EST edical Service) Documentation of current 12/18/2017 MED GEN (Dante medications (procedure) 12:00:00 AM EST edical Service) Documentation of current 12/18/2017 MED GEN (Dante medications (procedure) 12:00:00 AM EST edical Service) Documentation of current 12/18/2017 MED GEN (Dante medications (procedure) 12:00:00 AM EST edical Service) Documentation of current 12/18/2017 MED GEN (Jonny medications (procedure) 12:00:00 AM EST edical Service) Documentation of current 12/18/2017 MED GEN (Jonny medications (procedure) 12:00:00 AM EST edical Service) Documentation of current 12/18/2017 MED GEN (Jonny medications (procedure) 12:00:00 AM EST edical Service) Documentation of current 12/18/2017 MED GEN (Dante medications (procedure) 12:00:00 AM EST edical Service) Documentation of current 12/18/2017 MED GEN (Jonny medications (procedure) 12:00:00 AM EST edical Service) Documentation of current 12/18/2017 MED GEN (Jonny medications (procedure) 12:00:00 AM EST edical Service) Documentation of current 12/18/2017 MED GEN (Dante medications (procedure) 12:00:00 AM [facility] edical Service) Documentation of current 08/23/2017 MED GEN (Jonny medications (procedure) 12:00:00 AM EDT edical Service) Documentation of current 08/23/2017 MED GEN (Jonny medications (procedure) 12:00:00 AM EDT edical Service) Documentation of current 08/23/2017 MED GEN (Jonny medications (procedure) 12:00:00 AM EDT edical Service) Documentation of current 08/23/2017 MED GEN (Dante medications (procedure) 12:00:00 AM EDT edical Service) Documentation of current 08/23/2017 MED GEN (Dante medications (procedure) 12:00:00 AM EDT edical Service) Documentation of current 08/23/2017 MED GEN (Jonny medications (procedure) 12:00:00 AM EDT edical Service) Documentation of current 08/23/2017 MED GEN (Jonny medications (procedure) 12:00:00 AM EDT edical Service) Documentation of current 08/23/2017 MED GEN (Jonny medications (procedure) 12:00:00 AM EDT edical Service) Documentation of current 07/19/2017 MED GEN (Jonny medications (procedure) 12:00:00 AM EDT edical Service) Documentation of current 07/19/2017 MED GEN (Jonny medications (procedure) 12:00:00 AM EDT edical Service) Documentation of current 07/19/2017 MED GEN (Dante medications (procedure) 12:00:00 AM EDT edical Service) Documentation of current 07/19/2017 MED GEN (Jonny medications (procedure) 12:00:00 AM EDT edical Service) Documentation of current 05/25/2017 MED GEN (Dante medications (procedure) 12:00:00 AM EDT edical Service) Documentation of current 05/25/2017 MED GEN (Jonny medications (procedure) 12:00:00 AM EDT edical Service) Documentation of current 05/25/2017 MED GEN (Jonny medications (procedure) 12:00:00 AM EDT edical Service) Documentation of current 05/25/2017 MED GEN (Jonny medications (procedure) 12:00:00 AM EDT edical Service) Documentation of current 05/25/2017 MED GEN (Jonny medications (procedure) 12:00:00 AM EDT edical Service) Documentation of current 05/25/2017 MED GEN (Jonny medications (procedure) 12:00:00 AM EDT edical Service) Documentation of current 05/25/2017 MED GEN (Dante medications (procedure) 12:00:00 AM EDT edical Service) Documentation of current 05/25/2017 MED GEN (Jonny medications (procedure) 12:00:00 AM EDT edical Service) Documentation of current 05/25/2017 MED GEN (Dante medications (procedure) 12:00:00 AM EDT edical Service) Documentation of current 05/25/2017 MED GEN (Dante medications (procedure) 12:00:00 AM EDT edical Service) Documentation of current 05/25/2017 MED GEN (Dante medications (procedure) 12:00:00 AM EDT edical Service) Documentation of current 05/25/2017 MED GEN (Jonny medications (procedure) 12:00:00 AM EDT edical Service) Documentation of current 05/25/2017 MED GEN (Jonny medications (procedure) 12:00:00 AM EDT edical Service) Documentation of current 05/25/2017 MED GEN (Dante medications (procedure) 12:00:00 AM EDT edical Service) Documentation of current 05/25/2017 MED GEN (Jonny medications (procedure) 12:00:00 AM EDT edical Service) Documentation of current 05/25/2017 MED GEN (Jonny medications (procedure) 12:00:00 AM EDT edical Service) Documentation of current 02/23/2017 MED GEN (Dante medications (procedure) 12:00:00 AM EDT edical Service) Medication Reconciliation 02/23/2017 ME DGEN (Dante (procedure) 12:00:00 AM EDT Medical Serv ice) Documentation of current 02/23/2017 MED GEN (Jonny medications (procedure) 12:00:00 AM EDT edical Service) Documentation of current 02/23/2017 MED GEN (Jonny medications (procedure) 12:00:00 AM EDT edical Service) Medication Reconciliation 02/23/2017 ME DGEN (Dante (procedure) 12:00:00 AM EDT Medical Serv ice) Documentation of current 02/23/2017 MED GEN (Jonny medications (procedure) 12:00:00 AM EDT edical Service) Documentation of current 02/23/2017 MED GEN (Jonny medications (procedure) 12:00:00 AM EDT edical Service) Medication Reconciliation 02/23/2017 [place] DGEN (Dante (procedure) 12:00:00 AM EDT Medical Serv ice) Documentation of current 02/23/2017 MED GEN (Dante medications (procedure) 12:00:00 AM EDT edical Service) Documentation of current 02/23/2017 MED GEN (Jonny medications (procedure) 12:00:00 AM EDT edical Service) Medication Reconciliation 02/23/2017 SC DGEN (Jonny (procedure) 12:00:00 AM EDT Medical Serv ice) Documentation of current 02/23/2017 MED GEN (Dante medications (procedure) 12:00:00 AM EDT edical Service) Documentation of current 12/23/2016 MED GEN (Dante medications (procedure) 12:00:00 AM EST edical Service) Documentation of current 12/23/2016 MED GEN (Dante medications (procedure) 12:00:00 AM EST edical Service) Documentation of current 12/23/2016 MED GEN (Dante medications (procedure) 12:00:00 AM EST edical Service) Documentation of current 12/23/2016 MED GEN (Jonny medications (procedure) 12:00:00 AM EST edical Service) Documentation of current 05/08/2016 MED GEN (Dante medications (procedure) 12:00:00 AM EDT edical Service) Documentation of current 05/08/2016 MED GEN (Dante medications (procedure) 12:00:00 AM EDT edical Service) Documentation of current 05/08/2016 MED GEN (Jonny medications (procedure) 12:00:00 AM EDT edical Service) Documentation of current 05/08/2016 MED GEN (Dante medications (procedure) 12:00:00 AM EDT edical Service) Results ID Date Data Source [id number] 07/12/2020 02:00:00 PM EDT [facility] Name Value Range Interpretation Code Description Data Rafaela rce(s) Supporting Document(s ) SARS-CoV-2 [facility] PCR This lab was ordered by [facility] and reported by [employer]. ID Date Data Source [id number] 07/12/2020 12:00:00 AM EDT MEDGEN ([facility]) Name Value Range Interpretation Description Data Sup porting Code Source(s) Document(s ) SARS-CoV- Not Detected Normal (applies to MEDGEN 2 PCR non-numeric (Jonny results) Medical Service) ID Date Data Source [id number] 07/06/2020 12:00:00 AM EDT MEDGEN ([facility] Service) Name Value Range Interpretation Description Data Sup porting Code Source(s) Document(s ) PROTHROMBIN 13.3 sec Normal (applies MEDGEN TIME, PT to non-numeric (Dante results) Medical Service) INR 0.98 Normal (applies MEDGEN to non-numeric (Jonny results) Medical Service) ID Date Data Source [id number] 07/06/2020 12:00:00 AM EDT MEDGEN ([facility]) Name Value Range Interpretation Description Data Sup porting Code Source(s) Document(s ) WBC 9.5 Normal (applies MEDGEN 10(3)/uL to non-numeric (Dante results) Medical Service) RBC 4.7 Normal (applies MEDGEN 10(6)/uL to non-numeric (Jonny results) Medical Service) Hemoglobin 14.2 g/dL Normal (applies MEDGEN [Mass/volume] to non-numeric (Dante in Mixed venous results) Medical blood by Service) Oximetry Hematocrit 44.0 % Normal (applies MEDGEN [Pure volume to non-numeric (Jonny fraction] of results) Medical Blood by Service) Automated count MCV 93.0 fL Normal (applies MEDGEN to non-numeric (Jonny results) Medical Service) MCH 30 pg Normal (applies MEDGEN to non-numeric (Dante results) Medical Service) MCHC 32 g/dL Normal (applies MEDGEN to non-numeric (Jonny results) Medical Service) RDWSD 42.7 fL Normal (applies MEDGEN to non-numeric (Jonny results) Medical Service) RDWCV 12.4 % Normal (applies MEDGEN to non-numeric (Dante results) Medical Service) Platelet Count 295 Normal (applies MEDGEN 10(3)/uL to non-numeric (Jonny results) Medical Service) MPV 14.0 fL Above high normal MEDGEN ([facility] Medical Service) Neutrophil Abs 6.22 Normal (applies MEDGEN 10(3)/uL to non-numeric (Dante results) Medical Service) Lymphocyte Abs 2.37 Normal (applies MEDGEN 10(3)/uL to non-numeric (Dante results) Medical Service) Monocyte Abs 0.75 Normal (applies MEDGEN 10(3)/uL to non-numeric (Jonny results) Medical Service) Eosinophil Abs 0.16 Normal (applies MEDGEN 10(3)/uL to non-numeric (Jonny results) Medical Service) Basophil Abs 0.04 Normal (applies MEDGEN 10(3)/uL to non-numeric (Jonny results) Medical Service) Immature 0.04 Normal (applies MEDGEN Granulocyte Abs 10(3)/uL to non-numeric (Dante results) Medical Service) Neutrophil % 65.20 % Normal (applies MEDGEN to non-numeric (Dante results) Medical Service) Lymphocyte % 25 % Normal (applies MEDGEN to non-numeric (Jonny results) Medical Service) Monocyte % 7.9 % Normal (applies MEDGEN to non-numeric (Dante results) Medical Service) Basophil % 0.4 % Normal (applies MEDGEN to non-numeric (Dante results) Medical Service) Eosinophil % 1.7 % Normal (applies MEDGEN to non-numeric (Jonny results) Medical Service) Immature 0.40 % Normal (applies MEDGEN Granulocyte % to non-numeric (Dante results) Medical Service) NRBC % 0.0 % Normal (applies MEDGEN to non-numeric (Dante results) Medical Service) NRBC Abs 0.00 Normal (applies MEDGEN 10(3)/uL to non-numeric (Jonny results) Medical Service) ID Date Data Source [id number] 07/06/2020 12:00:00 AM EDT MEDGEN ([facility]) Name Value Range Interpretation Description Data Sup porting Code Source(s) Document(s ) TSH,3RD 3.48 Normal (applies to MEDGEN GENERATION uIU/mL non-numeric (Jonny results) Medical Service) T3 TOTAL 85 ng/dL Normal (applies to MEDGEN non-numeric (Jonny results) Medical Service) T4 TOTAL 7.3 ug/dL Normal (applies to MEDGEN THYROXINE non-numeric (Jonny results) Medical Service) ID Date Data Source [id number] 07/06/2020 12:00:00 AM EDT MEDGEN ([facility]) Name Value Range Interpretation Description Data Sup porting Code Source(s) Document(s ) VITAMIN D 36.96 Normal (applies to MEDGEN 25-HYDROXY ng/mL non-numeric (Dante results) Medical Service) ID Date Data Source [id number] 07/06/2020 12:00:00 AM EDT MEDGEN ([facility]) Name Value Range Interpretation Code Description Data Supporting Source(s) Document(s ) GLYCOMARK 15.53 Normal (applies to MEDGEN ug/mL non-numeric (Dante results) Medical Service) ID Date Data Source [id number] 07/06/2020 12:00:00 AM EDT MEDGEN ([facility]) Name Value Range Interpretation Description Data Sup porting Code Source(s) Document(s ) Hemoglobin A1c 6.0 % Above high normal MEDGEN in Blood ([facility]) ID Date Data Source [id number] 07/06/2020 12:00:00 AM EDT MEDGEN ([facility]) Name Value Range Interpretation Code Description Data Supporting Source(s) Document(s ) SARS-CoV- 0.00 index Normal (applies to MEDGEN 2 AB IGG non-numeric (Jonny QNT results) Medical Service) SARS-CoV- Negative Normal (applies to MEDGEN 2 AB IGG non-numeric (Jonny results) Medical Service) ID Date Data Source [id number] 07/06/2020 12:00:00 AM EDT MEDGEN ([facility]) Name Value Range Interpretation Code Description Data Rafaela rce(s) Supporting Document(s ) APTT 31.90 sec Normal (applies to MEDGEN non-numeric results) ([facility]) ID Date Data Source [id number] 07/06/2020 12:00:00 AM EDT MEDGEN ([facility]) Name Value Range Interpretation Description Data Sup porting Code Source(s) Document(s ) FOLATE 21.4 ng/mL Normal (applies to MEDGEN SERUM non-numeric (Dante results) Medical Service) ID Date Data Source [id number] 07/06/2020 12:00:00 AM EDT MEDGEN ([facility]) Name Value Range Interpretation Description Data Sup porting Code Source(s) Document(s ) VITAMIN B12 724 pg/mL Normal (applies to MEDGEN non-numeric (Dante results) Medical Service) ID Date Data Source [id number] 07/06/2020 12:00:00 AM EDT MEDGEN ([facility]) Name Value Range Interpretation Description Data Sup porting Code Source(s) Document(s ) Cholesterol 217 Above high normal MEDGEN [Moles/volume] mg/dL (Dante in Pericardial Medical fluid Service) LDL CALCULATION 153.2 Above high normal MEDGEN mg/dL ([facility] Medical Service) CHOL/HDL RATIO 4.93 Normal (applies MEDGEN ratio to non-numeric (Dante results) Medical Service) HDL CHOLESTEROL 44 mg/dL Below low normal MEDGEN ([facility] Medical Service) VLDL CALCULATION 19.8 Normal (applies MEDGEN mg/dl to non-numeric (Dante results) Medical Service) TRIGLYCERIDES 99 mg/dL Normal (applies MEDGEN to non-numeric (Dante results) Medical Service) ID Date Data Source [id number] 07/06/2020 12:00:00 AM EDT MEDGEN ([facility]) Name Value Range Interpretation Description Data Sup porting Code Source(s) Document(s ) GLUCOSE 84 mg/dL Normal (applies MEDGEN NONFASTING,SERUM [facility]) SODIUM, SERUM 141 Normal (applies MEDGEN mEq/L to non-numeric (Dante results) Medical Service) POTASSIUM, SERUM 4.6 Normal (applies MEDGEN mEq/L to non-numeric (Dante results) Medical Service) Carbon dioxide 26 mEq/L Normal (applies MEDGEN [VFr/PPres] in to non-numeric ([facility] [employer] results) Medical system Service) CHLORIDE, SERUM 102 Normal (applies MEDGEN mEq/L to non-numeric (Dante results) Medical Service) Anion gap in 17.6 Normal (applies MEDGEN Body fluid mEq/L to non-numeric (Dante results) Medical Service) BLOOD UREA 17 mg/dL Normal (applies MEDGEN NITROGEN to non-numeric (Dante results) Medical Service) CREATININE, 1.00 Above high normal MEDGEN SERUM mg/dL ([facility] Medical Service) BUN/CREATININE 17.00 Normal (applies MEDGEN RATIO to non-numeric (Dante results) Medical Service) CALCIUM, SERUM 10.1 Normal (applies MEDGEN mg/dL to non-numeric (Dante results) Medical Service) Microalbumin 4.6 g/dL Normal (applies MEDGEN [Mass/time] in to non-numeric (Dante Urine collected results) Medical for unspecified Service) duration TOTAL PROTEIN 7.6 g/dL Normal (applies MEDGEN to non-numeric (Dante results) Medical Service) Globulin 3.0 gldl Normal (applies MEDGEN [Mass/time] in to non-numeric (Dante 24 hour Urine results) Medical Service) A/G RATIO 1.53 Normal (applies MEDGEN g/dl to non-numeric (Dante results) Medical Service) BILIRUBIN, TOTAL 0.6 Normal (applies MEDGEN mg/dL to non-numeric (Dante results) Medical Service) ALKALINE 79 U/L Normal (applies MEDGEN PHOSPHATASE, ALP to non-numeric [facility]) ALT (SGPT) 17 U/L Normal (applies MEDGEN to non-numeric (Dante results) Medical Service) AST 23 U/L Normal (applies MEDGEN to non-numeric (Dante results) Medical Service) EGFR NON AFR 58 Below low normal MEDGEN [place] mL/min/1 (Dante .73m2 Medical Service) EGFR AFR 70 Normal (applies MEDGEN [place] mL/min/1 to non-numeric (Dante .73m2 results) Medical Service) ID Date Data Source [id number] 07/06/2020 12:00:00 AM EDT MEDGEN ([facility]) Name Value Range Interpretation Description Data Sup porting Code Source(s) Document(s ) PROTHROMBIN 13.3 sec Normal (applies MEDGEN TIME, PT to non-numeric (Dante results) Medical Service) INR 0.98 Normal (applies MEDGEN to non-numeric (Dante results) Medical Service) ID Date Data Source [id number] 07/06/2020 12:00:00 AM EDT [facility] ([facility]) Name Value Range Interpretation Description Data Sup porting Code Source(s) Document(s ) WBC 9.5 Normal (applies MEDGEN 10(3)/uL to non-numeric (Jonny results) Medical Service) RBC 4.7 Normal (applies MEDGEN 10(6)/uL to non-numeric (Jonny results) Medical Service) Hematocrit 44.0 % Normal (applies MEDGEN [Pure volume to non-numeric (Dante fraction] of results) Medical Blood by Service) Automated count Hemoglobin 14.2 g/dL Normal (applies MEDGEN [Mass/volume] to non-numeric (Jonny in Mixed venous results) Medical blood by Service) Oximetry MCV 93.0 fL Normal (applies MEDGEN to non-numeric (Jonny results) Medical Service) MCH 30 pg Normal (applies MEDGEN to non-numeric (Jonny results) Medical Service) RDWSD 42.7 fL Normal (applies MEDGEN to non-numeric (Dante results) Medical Service) MCHC 32 g/dL Normal (applies MEDGEN to non-numeric (Jonny results) Medical Service) RDWCV 12.4 % Normal (applies MEDGEN to non-numeric (Jonny results) Medical Service) Platelet Count 295 Normal (applies MEDGEN 10(3)/uL to non-numeric (Jonny results) Medical Service) MPV 14.0 fL Above high normal MEDGEN ([facility] Medical Service) Lymphocyte Abs 2.37 Normal (applies MEDGEN 10(3)/uL to non-numeric (Jonny results) Medical Service) Neutrophil Abs 6.22 Normal (applies MEDGEN 10(3)/uL to non-numeric (Dante results) Medical Service) Monocyte Abs 0.75 Normal (applies MEDGEN 10(3)/uL to non-numeric (Jonny results) Medical Service) Eosinophil Abs 0.16 Normal (applies MEDGEN 10(3)/uL to non-numeric (Jonny results) Medical Service) Basophil Abs 0.04 Normal (applies MEDGEN 10(3)/uL to non-numeric (Dante results) Medical Service) Immature 0.04 Normal (applies MEDGEN Granulocyte Abs 10(3)/uL to non-numeric (Jonny results) Medical Service) Neutrophil % 65.20 % Normal (applies MEDGEN to non-numeric (Jonny results) Medical Service) Lymphocyte % 25 % Normal (applies MEDGEN to non-numeric (Dante results) Medical Service) Monocyte % 7.9 % Normal (applies MEDGEN to non-numeric (Dante results) Medical Service) Eosinophil % 1.7 % Normal (applies MEDGEN to non-numeric (Dante results) Medical Service) Basophil % 0.4 % Normal (applies MEDGEN to non-numeric (Dante results) Medical Service) Immature 0.40 % Normal (applies MEDGEN Granulocyte % to non-numeric (Dante results) Medical Service) NRBC Abs 0.00 Normal (applies MEDGEN 10(3)/uL to non-numeric (Jonny results) Medical Service) NRBC % 0.0 % Normal (applies MEDGEN to non-numeric (Jonny results) Medical Service) ID Date Data Source [id number] 07/06/2020 12:00:00 AM EDT MEDGEN ([facility]) Name Value Range Interpretation Description Data Sup porting Code Source(s) Document(s ) TSH,3RD 3.48 Normal (applies to MEDGEN GENERATION uIU/mL non-numeric (Dante results) Medical Service) T3 TOTAL 85 ng/dL Normal (applies to MEDGEN non-numeric (Jonny results) Medical Service) T4 TOTAL 7.3 ug/dL Normal (applies to MEDGEN THYROXINE non-numeric (Jonny results) Medical Service) ID Date Data Source [id number] 07/06/2020 12:00:00 AM EDT MEDGEN ([facility]) Name Value Range Interpretation Description Data Sup porting Code Source(s) Document(s ) VITAMIN D 36.96 Normal (applies to MEDGEN 25-HYDROXY ng/mL non-numeric (Dante results) Medical Service) ID Date Data Source [id number] 07/06/2020 12:00:00 AM EDT MEDGEN ([facility]) Name Value Range Interpretation Code Description Data Supporting Source(s) Document(s ) GLYCOMARK 15.53 Normal (applies to MEDGEN ug/mL non-numeric (Dante results) Medical Service) ID Date Data Source [id number] 07/06/2020 12:00:00 AM EDT MEDGEN ([facility]) Name Value Range Interpretation Description Data Sup porting Code Source(s) Document(s ) Hemoglobin A1c 6.0 % Above high normal MEDGEN in Blood ([employer] Service) ID Date Data Source [id number] 07/06/2020 12:00:00 AM EDT MEDGEN ([facility]) Name Value Range Interpretation Code Description Data Supporting Source(s) Document(s ) SARS-CoV- 0.00 index Normal (applies to MEDGEN 2 AB IGG non-numeric (Jonny QNT results) Medical Service) SARS-CoV- Negative Normal (applies to MEDGEN 2 AB IGG non-numeric (Jonny results) Medical Service) ID Date Data Source [id number] 07/06/2020 12:00:00 AM EDT MEDGEN ([facility] Service) Name Value Range Interpretation Code Description Data Rafaela rce(s) Supporting Document(s ) APTT 31.90 sec Normal (applies to MEDGEN non-numeric results) ([facility] Medical Service) ID Date Data Source [id number] 07/06/2020 12:00:00 AM EDT MEDGEN ([facility] Service) Name Value Range Interpretation Description Data Sup porting Code Source(s) Document(s ) FOLATE 21.4 ng/mL Normal (applies to MEDGEN SERUM non-numeric (Dante results) Medical Service) ID Date Data Source [id number] 07/06/2020 12:00:00 AM EDT MEDGEN ([facility]) Name Value Range Interpretation Description Data Sup porting Code Source(s) Document(s ) VITAMIN B12 724 pg/mL Normal (applies to MEDGEN non-numeric (Jonny results) Medical Service) ID Date Data Source [id number] 07/06/2020 12:00:00 AM EDT MEDGEN ([facility] Service) Name Value Range Interpretation Description Data Sup porting Code Source(s) Document(s ) Cholesterol 217 Above high normal MEDGEN [Moles/volume] mg/dL (Dante in Pericardial Medical fluid Service) LDL CALCULATION 153.2 Above high normal MEDGEN mg/dL ([facility] Medical Service) CHOL/HDL RATIO 4.93 Normal (applies MEDGEN ratio to non-numeric (Jonny results) Medical Service) VLDL CALCULATION 19.8 Normal (applies MEDGEN mg/dl to non-numeric (Jonny results) Medical Service) HDL CHOLESTEROL 44 mg/dL Below low normal MEDGEN ([facility] Medical Service) TRIGLYCERIDES 99 mg/dL Normal (applies MEDGEN to non-numeric (Dante results) Medical Service) ID Date Data Source [id number] 07/06/2020 12:00:00 AM EDT MEDGEN ([facility] Service) Name Value Range Interpretation Description Data Sup porting Code Source(s) Document(s ) GLUCOSE 84 mg/dL Normal (applies MEDGEN NONFASTING,SERUM to non-numeric ([facility] results) Medical Service) SODIUM, SERUM 141 Normal (applies MEDGEN mEq/L to non-numeric (Dante results) Medical Service) POTASSIUM, SERUM 4.6 Normal (applies MEDGEN mEq/L to non-numeric (Dante results) Medical Service) CHLORIDE, SERUM 102 Normal (applies MEDGEN mEq/L to non-numeric (Dante results) Medical Service) Carbon dioxide 26 mEq/L Normal (applies MEDGEN [VFr/PPres] in to non-numeric ([facility] [employer] results) Medical system Service) Anion gap in 17.6 Normal (applies MEDGEN Body fluid mEq/L to non-numeric (Dante results) Medical Service) BLOOD UREA 17 mg/dL Normal (applies MEDGEN NITROGEN to non-numeric (Dante results) Medical Service) CREATININE, 1.00 Above high normal MEDGEN SERUM mg/dL ([facility]ante Medical Service) BUN/CREATININE 17.00 Normal (applies MEDGEN RATIO to non-numeric (Dante results) Medical Service) CALCIUM, SERUM 10.1 Normal (applies MEDGEN mg/dL to non-numeric (Dante results) Medical Service) TOTAL PROTEIN 7.6 g/dL Normal (applies MEDGEN to non-numeric (Dante results) Medical Service) Microalbumin 4.6 g/dL Normal (applies MEDGEN [Mass/time] in to non-numeric (Dante Urine collected results) Medical for unspecified Service) duration Globulin 3.0 gldl Normal (applies MEDGEN [Mass/time] in to non-numeric (Dante 24 hour Urine results) Medical Service) A/G RATIO 1.53 Normal (applies MEDGEN g/dl to non-numeric (Dante results) Medical Service) BILIRUBIN, TOTAL 0.6 Normal (applies MEDGEN mg/dL to non-numeric (Dante results) Medical Service) ALKALINE 79 U/L Normal (applies MEDGEN PHOSPHATASE, ALP to non-numeric ([facility] results) Medical Service) AST 23 U/L Normal (applies MEDGEN to non-numeric (Dante results) Medical Service) ALT (SGPT) 17 U/L Normal (applies MEDGEN to non-numeric (Dante results) Medical Service) EGFR NON AFR 58 Below low normal MEDGEN [place] mL/min/1 (Jonny .73m2 Medical Service) EGFR AFR 70 Normal (applies MEDGEN [place] mL/min/1 to non-numeric (Jonny .73m2 results) Medical Service) ID Date Data Source [id number] 06/07/2020 10:36:00 AM EDT [facility] Name Value Range Interpretation Description Data Sup porting Code Source(s) Document(s ) SARS [facility] Coronavirus 2 RNA Presence Respiratory Specimen SAAD Probe Detection This lab was ordered by [place] and rep orted by [facility]. ID Date Data Source [id number] 11/23/2019 12:00:00 AM EST MED[facility] ([facility]) Name Value Range Interpretation Description Data Sup porting Code Source(s) Document(s ) LDL CALCULATION 137.0 Above high normal MEDGEN mg/dL ([facility] Service) Cholesterol 237 Above high normal MEDGEN [Moles/volume] mg/dL (Dante in Pericardial Medical fluid Service) CHOL/HDL RATIO 2.96 Normal (applies MEDGEN ratio to non-numeric (Dante results) Medical Service) HDL CHOLESTEROL 80 mg/dL Normal (applies MEDGEN to non-numeric (Jonny results) Medical Service) VLDL CALCULATION 20.0 Normal (applies MEDGEN mg/dl to non-numeric (Jonny results) Medical Service) TRIGLYCERIDES 100 Normal (applies MEDGEN mg/dL to non-numeric (Jonny results) Medical Service) ID Date Data Source [id number] 11/23/2019 12:00:00 AM EST [facility] ([facility]) Name Value Range Interpretation Description Data Sup porting Code Source(s) Document(s ) GLUCOSE UA NEGATIVE Normal (applies MEDGEN to non-numeric (Jonny results) Medical Service) BILIRUBIN, TOTAL NEGATIVE Normal (applies MEDGEN to non-numeric (Jonny results) Medical Service) Ketones NEGATIVE Normal (applies MEDGEN [Presence] in to non-numeric (Dante Blood by Tablet results) Medical Service) Specific gravity 1.019 SG Normal (applies MEDGEN of Pericardial units to non-numeric (Jonny fluid by results) Medical Refractometry Service) Blood [Presence] NEGATIVE Normal (applies MEDGEN in Urine by to non-numeric ([facility]ante Visual results) Medical Service) pH of Lower 5 Ph units Normal (applies MEDGEN respiratory to non-numeric (Dante specimen results) Medical Service) Protein NEGATIVE Normal (applies MEDGEN [Mass/volume] in to non-numeric ([place] [facility] Lower results) Medical respiratory Service) specimen Nitrite NEGATIVE Normal (applies MEDGEN [Presence] in to non-numeric (Jonny Urine by Test results) Medical strip Service) Urobilinogen 0-2.0 Normal (applies MEDGEN [Presence] in to non-numeric (Dante Urine by results) Medical Automated test Service) strip Leukocyte NEGATIVE Normal (applies MEDGEN esterase to non-numeric (Dante [Presence] in results) Medical Body fluid by Service) Automated test strip Color of YELLOW Normal (applies MEDGEN Peritoneal to non-numeric (Dante dialysis fluid results) Medical Service) TRANSPARENCY CLEAR Normal (applies MEDGEN to non-numeric (Jonny results) Medical Service) ID Date Data Source [id number] 11/23/2019 12:00:00 AM EST MEDGEN ([facility]) Name Value Range Interpretation Description Data Sup porting Code Source(s) Document(s ) WBC 7.2 Normal (applies MEDGEN 10(3)/uL to non-numeric (Dante results) Medical Service) Hemoglobin 12.7 g/dL Normal (applies MEDGEN [Mass/volume] to non-numeric (Jonny in Mixed venous results) Medical blood by Service) Oximetry RBC 4.1 Normal (applies MEDGEN 10(6)/uL to non-numeric (Jonny results) Medical Service) Hematocrit 38.2 % Normal (applies MEDGEN [Pure volume to non-numeric (Dante fraction] of results) Medical Blood by Service) Automated count MCV 92.7 fL Normal (applies MEDGEN to non-numeric (Dante results) Medical Service) MCH 31 pg Normal (applies MEDGEN to non-numeric (Dante results) Medical Service) MCHC 33 g/dL Normal (applies MEDGEN to non-numeric (Jonny results) Medical Service) RDWSD 43.0 fL Normal (applies MEDGEN to non-numeric (Jonny results) Medical Service) Platelet Count 288 Normal (applies MEDGEN 10(3)/uL to non-numeric (Dante results) Medical Service) RDWCV 12.9 % Normal (applies MEDGEN to non-numeric (Jonny results) Medical Service) MPV 12.3 fL Normal (applies MEDGEN to non-numeric (Dante results) Medical Service) Neutrophil Abs 3.84 Normal (applies MEDGEN 10(3)/uL to non-numeric (Dante results) Medical Service) Lymphocyte Abs 2.27 Normal (applies MEDGEN 10(3)/uL to non-numeric (Jonny results) Medical Service) Monocyte Abs 0.72 Normal (applies MEDGEN 10(3)/uL to non-numeric (Jonny results) Medical Service) Eosinophil Abs 0.26 Normal (applies MEDGEN 10(3)/uL to non-numeric (Jonny results) Medical Service) Basophil Abs 0.07 Normal (applies MEDGEN 10(3)/uL to non-numeric (Jonny results) Medical Service) Immature 0.02 Normal (applies MEDGEN Granulocyte Abs 10(3)/uL to non-numeric (Jonny results) Medical Service) Neutrophil % 53.60 % Normal (applies MEDGEN to non-numeric (Dante results) Medical Service) Lymphocyte % 32 % Normal (applies MEDGEN to non-numeric (Jonny results) Medical Service) Eosinophil % 3.6 % Normal (applies MEDGEN to non-numeric (Jonny results) Medical Service) Monocyte % 10.1 % Normal (applies MEDGEN to non-numeric (Jonny results) Medical Service) Basophil % 1.0 % Normal (applies MEDGEN to non-numeric (Dante results) Medical Service) Immature 0.30 % Normal (applies MEDGEN Granulocyte % to non-numeric (Jonny results) Medical Service) NRBC % 0.0 % Normal (applies MEDGEN to non-numeric (Dante results) Medical Service) NRBC Abs 0.00 Normal (applies MEDGEN 10(3)/uL to non-numeric (Dante results) Medical Service) ID Date Data Source [id number] 11/23/2019 12:00:00 AM EST [facility] ([facility]) Name Value Range Interpretation Description Data Sup porting Code Source(s) Document(s ) TSH,3RD 3.56 Normal (applies to MEDGEN GENERATION uIU/mL non-numeric (Jonny results) Medical Service) T4 TOTAL 5.7 ug/dL Normal (applies to MEDGEN THYROXINE non-numeric (Dante results) Medical Service) T3 TOTAL 101 ng/dL Normal (applies to MEDGEN non-numeric (Dante results) Medical Service) ID Date Data Source [id number] 11/23/2019 12:00:00 AM EST MEDGEN ([facility] [employer] [facility]) Name Value Range Interpretation Description Data Sup porting Code Source(s) Document(s ) VITAMIN D 25.83 Below low normal MEDGEN 25-HYDROXY ng/mL ([facility] [employer] [facility]) ID Date Data Source [id number] 11/23/2019 12:00:00 AM EST [facility] ([facility] [employer] [facility]) Name Value Range Interpretation Code Description Data Supporting Source(s) Document(s ) GLYCOMARK 13.91 Normal (applies to MEDGEN ug/mL non-numeric (Dante results) Medical Service) ID Date Data Source [id number] 11/23/2019 12:00:00 AM EST [facility]GEN ([facility] [facility]) Name Value Range Interpretation Description Data Sup porting Code Source(s) Document(s ) Hemoglobin A1c 6.3 % Above high normal MEDGEN in Blood ([facility]ante [employer] [facility]) ID Date Data Source [id number] 11/23/2019 12:00:00 AM EST MEDGEN ([facility] [employer] [facility]) Name Value Range Interpretation Description Data Sup porting Code Source(s) Document(s ) MICROALBUMIN 0.3 Normal (applies MEDGEN URINE mg/dL to non-numeric (Dante results) Medical Service) ID Date Data Source [id number] 11/23/2019 12:00:00 AM EST MEDGEN ([facility] [employer] [facility]) Name Value Range Interpretation Description Data Sup porting Code Source(s) Document(s ) VITAMIN B12 280 pg/mL Normal (applies to MEDGEN non-numeric (Dante results) Medical Service) ID Date Data Source [id number] 11/23/2019 12:00:00 AM EST [facility] ([facility] [employer] [facility]) Name Value Range Interpretation Description Data Sup porting Code Source(s) Document(s ) GLUCOSE 106 Normal (applies MEDGEN NONFASTING,SERUM mg/dL to non-numeric ([facility] y results) Medical Service) SODIUM, SERUM 141 Normal (applies MEDGEN mEq/L to non-numeric (Jonny results) Medical Service) CHLORIDE, SERUM 103 Normal (applies MEDGEN mEq/L to non-numeric (Jonny results) Medical Service) POTASSIUM, SERUM 5.1 Normal (applies MEDGEN mEq/L to non-numeric (Jonny results) Medical Service) Carbon dioxide 27 mEq/L Normal (applies MEDGEN [VFr/PPres] in to non-numeric ([facility] [employer] results) Medical system Service) Anion gap in 16.1 Normal (applies MEDGEN Body fluid mEq/L to non-numeric (Dante results) Medical Service) BLOOD UREA 21 mg/dL Normal (applies MEDGEN NITROGEN to non-numeric (Dante results) Medical Service) CREATININE, 0.80 Normal (applies MEDGEN SERUM mg/dL to non-numeric (Dante results) Medical Service) CALCIUM, SERUM 10.2 Normal (applies MEDGEN mg/dL to non-numeric (Dante results) Medical Service) TOTAL PROTEIN 7.6 g/dL Normal (applies MEDGEN to non-numeric (Dante results) Medical Service) Microalbumin 4.7 g/dL Normal (applies MEDGEN [Mass/time] in to non-numeric (Dante Urine collected results) Medical for unspecified Service) duration Globulin 2.9 gldl Normal (applies MEDGEN [Mass/time] in to non-numeric (Dante 24 hour Urine results) Medical Service) A/G RATIO 1.62 Normal (applies MEDGEN g/dl to non-numeric (Dante results) Medical Service) ALKALINE 84 U/L Normal (applies [facility] PHOSPHATASE, [facility]) BILIRUBIN, TOTAL 0.4 Normal (applies MEDGEN mg/dL to non-numeric (Dante results) Medical Service) ALT (SGPT) 17 U/L Normal (applies MEDGEN to non-numeric (Dante results) Medical Service) AST 23 U/L Normal (applies MEDGEN to non-numeric (Dante results) Medical Service) EGFR AFR 91 Normal (applies MEDGEN [place] mL/min/1 to non-numeric (Jonny .73m2 results) Medical Service) EGFR NON AFR 75 Normal (applies [facility]GEN [place] mL/min/1 to non-numeric (Dante .73m2 results) Medical Service) ID Date Data Source [id number] 11/23/2019 12:00:00 AM EST [facility]GEN ([facility]) Name Value Range Interpretation Description Data Sup porting Code Source(s) Document(s ) LDL CALCULATION 137.0 Above high normal MEDGEN mg/dL ([facility] Medical Service) Cholesterol 237 Above high normal MEDGEN [Moles/volume] mg/dL (Dante in Pericardial Medical fluid Service) CHOL/HDL RATIO 2.96 Normal (applies MEDGEN ratio to non-numeric (Dante results) Medical Service) HDL CHOLESTEROL 80 mg/dL Normal (applies MEDGEN to non-numeric (Dante results) Medical Service) TRIGLYCERIDES 100 Normal (applies MEDGEN mg/dL to non-numeric (Jonny results) Medical Service) VLDL CALCULATION 20.0 Normal (applies MEDGEN mg/dl to non-numeric (Dante results) Medical Service) ID Date Data Source [id number] 11/23/2019 12:00:00 AM EST [facility]GEN ([facility]) Name Value Range Interpretation Description Data Sup porting Code Source(s) Document(s ) GLUCOSE UA NEGATIVE Normal (applies MEDGEN to non-numeric (Jonny results) Medical Service) BILIRUBIN, TOTAL NEGATIVE Normal (applies MEDGEN to non-numeric (Dante results) Medical Service) Ketones NEGATIVE Normal (applies MEDGEN [Presence] in to non-numeric (Dante Blood by Tablet results) Medical Service) Specific gravity 1.019 SG Normal (applies MEDGEN of Pericardial units to non-numeric (Jonny fluid by results) Medical Refractometry Service) Blood [Presence] NEGATIVE Normal (applies MEDGEN in Urine by to non-numeric (Jonny Visual results) Medical Service) pH of Lower 5 Ph units Normal (applies MEDGEN respiratory to non-numeric (Jonny specimen results) Medical Service) Urobilinogen 0-2.0 Normal (applies MEDGEN [Presence] in to non-numeric (Dante Urine by results) Medical Automated test Service) strip Protein NEGATIVE Normal (applies MEDGEN [Mass/volume] in to non-numeric ([place] [facility] Lower results) Medical respiratory Service) specimen Nitrite NEGATIVE Normal (applies MEDGEN [Presence] in to non-numeric (Jonny Urine by Test results) Medical strip Service) Leukocyte NEGATIVE Normal (applies MEDGEN esterase to non-numeric (Jonny [Presence] in results) Medical Body fluid by Service) Automated test strip TRANSPARENCY CLEAR Normal (applies MEDGEN to non-numeric (Jonny results) Medical Service) Color of YELLOW Normal (applies MEDGEN Peritoneal to non-numeric (Jonny dialysis fluid results) Medical Service) ID Date Data Source [id number] 11/23/2019 12:00:00 AM EST MEDGEN ([facility]) Name Value Range Interpretation Description Data Sup porting Code Source(s) Document(s ) WBC 7.2 Normal (applies MEDGEN 10(3)/uL to non-numeric (Dante results) Medical Service) RBC 4.1 Normal (applies MEDGEN 10(6)/uL to non-numeric (Jonny results) Medical Service) Hemoglobin 12.7 g/dL Normal (applies MEDGEN [Mass/volume] to non-numeric (Dante in Mixed venous results) Medical blood by Service) Oximetry MCV 92.7 fL Normal (applies MEDGEN to non-numeric (Dante results) Medical Service) Hematocrit 38.2 % Normal (applies MEDGEN [Pure volume to non-numeric (Dante fraction] of results) Medical Blood by Service) Automated count MCH 31 pg Normal (applies MEDGEN to non-numeric (Dante results) Medical Service) MCHC 33 g/dL Normal (applies MEDGEN to non-numeric (Jonny results) Medical Service) RDWCV 12.9 % Normal (applies MEDGEN to non-numeric (Jonny results) Medical Service) RDWSD 43.0 fL Normal (applies MEDGEN to non-numeric (Jonny results) Medical Service) Platelet Count 288 Normal (applies MEDGEN 10(3)/uL to non-numeric (Jonny results) Medical Service) MPV 12.3 fL Normal (applies MEDGEN to non-numeric (Jonny results) Medical Service) Neutrophil Abs 3.84 Normal (applies MEDGEN 10(3)/uL to non-numeric (Dante results) Medical Service) Lymphocyte Abs 2.27 Normal (applies MEDGEN 10(3)/uL to non-numeric (Dante results) Medical Service) Monocyte Abs 0.72 Normal (applies MEDGEN 10(3)/uL to non-numeric (Jonny results) Medical Service) Eosinophil Abs 0.26 Normal (applies MEDGEN 10(3)/uL to non-numeric (Jonny results) Medical Service) Basophil Abs 0.07 Normal (applies MEDGEN 10(3)/uL to non-numeric (Jonny results) Medical Service) Neutrophil % 53.60 % Normal (applies MEDGEN to non-numeric (Dante results) Medical Service) Immature 0.02 Normal (applies MEDGEN Granulocyte Abs 10(3)/uL to non-numeric (Dante results) Medical Service) Lymphocyte % 32 % Normal (applies MEDGEN to non-numeric (Jonny results) Medical Service) Monocyte % 10.1 % Normal (applies MEDGEN to non-numeric (Jonny results) Medical Service) Eosinophil % 3.6 % Normal (applies MEDGEN to non-numeric (Jonny results) Medical Service) Immature 0.30 % Normal (applies MEDGEN Granulocyte % to non-numeric (Jonny results) Medical Service) Basophil % 1.0 % Normal (applies MEDGEN to non-numeric (Jonny results) Medical Service) NRBC % 0.0 % Normal (applies MEDGEN to non-numeric (Dante results) Medical Service) NRBC Abs 0.00 Normal (applies MEDGEN 10(3)/uL to non-numeric (Dante results) Medical Service) ID Date Data Source [id number] 11/23/2019 12:00:00 AM EST [facility] ([facility]) Name Value Range Interpretation Description Data Sup porting Code Source(s) Document(s ) TSH,3RD 3.56 Normal (applies to MEDGEN GENERATION uIU/mL non-numeric (Dante results) Medical Service) T4 TOTAL 5.7 ug/dL Normal (applies to MEDGEN THYROXINE non-numeric (Dante results) Medical Service) T3 TOTAL 101 ng/dL Normal (applies to MEDGEN non-numeric (Dante results) Medical Service) ID Date Data Source [id number] 11/23/2019 12:00:00 AM EST MEDGEN ([facility]) Name Value Range Interpretation Description Data Sup porting Code Source(s) Document(s ) VITAMIN D 25.83 Below low normal MEDGEN 25-HYDROXY ng/mL ([facility]) ID Date Data Source [id number] 11/23/2019 12:00:00 AM EST MEDGEN ([facility]) Name Value Range Interpretation Code Description Data Supporting Source(s) Document(s ) GLYCOMARK 13.91 Normal (applies to MEDGEN ug/mL non-numeric (Dante results) Medical Service) ID Date Data Source [id number] 11/23/2019 12:00:00 AM EST [facility]GEN ([facility]) Name Value Range Interpretation Description Data Sup porting Code Source(s) Document(s ) Hemoglobin A1c 6.3 % Above high normal MEDGEN in Blood ([facility]) ID Date Data Source [id number] 11/23/2019 12:00:00 AM EST [facility]GEN ([facility]) Name Value Range Interpretation Description Data Sup porting Code Source(s) Document(s ) MICROALBUMIN 0.3 Normal (applies MEDGEN URINE mg/dL to non-numeric (Dante results) Medical Service) ID Date Data Source [id number] 11/23/2019 12:00:00 AM EST MEDGEN ([facility]) Name Value Range Interpretation Description Data Sup porting Code Source(s) Document(s ) VITAMIN B12 280 pg/mL Normal (applies to MEDGEN non-numeric (Dante results) Medical Service) ID Date Data Source [id number] 11/23/2019 12:00:00 AM EST MEDGEN ([facility]) Name Value Range Interpretation Description Data Sup porting Code Source(s) Document(s ) GLUCOSE 106 Normal (applies MEDGEN NONFASTING,SERUM mg/dL to non-numeric ([facility] y results) Medical Service) SODIUM, SERUM 141 Normal (applies MEDGEN mEq/L to non-numeric (Dante results) Medical Service) POTASSIUM, SERUM 5.1 Normal (applies MEDGEN mEq/L to non-numeric (Dante results) Medical Service) CHLORIDE, SERUM 103 Normal (applies MEDGEN mEq/L to non-numeric (Dante results) Medical Service) Carbon dioxide 27 mEq/L Normal (applies MEDGEN [VFr/PPres] in to non-numeric (Dante [employer] results) Medical system Service) Anion gap in 16.1 Normal (applies MEDGEN Body fluid mEq/L to non-numeric (Dante results) Medical Service) CREATININE, 0.80 Normal (applies MEDGEN SERUM mg/dL to non-numeric (Dante results) Medical Service) BLOOD UREA 21 mg/dL Normal (applies MEDGEN NITROGEN to non-numeric (Dante results) Medical Service) CALCIUM, SERUM 10.2 Normal (applies MEDGEN mg/dL to non-numeric (Dante results) Medical Service) TOTAL PROTEIN 7.6 g/dL Normal (applies MEDGEN to non-numeric (Dante results) Medical Service) Globulin 2.9 gldl Normal (applies MEDGEN [Mass/time] in to non-numeric (Dante 24 hour Urine results) Medical Service) Microalbumin 4.7 g/dL Normal (applies MEDGEN [Mass/time] in to non-numeric (Dante Urine collected results) Medical for unspecified Service) duration A/G RATIO 1.62 Normal (applies MEDGEN g/dl to non-numeric (Dante results) Medical Service) BILIRUBIN, TOTAL 0.4 Normal (applies MEDGEN mg/dL to non-numeric (Jonny results) Medical Service) ALKALINE 84 U/L Normal (applies MEDGEN PHOSPHATASE, ALP to [facility]) ALT (SGPT) 17 U/L Normal (applies MEDGEN to non-numeric (Jonny results) Medical Service) AST 23 U/L Normal (applies MEDGEN to non-numeric (Jonny results) Medical Service) EGFR NON AFR 75 Normal (applies MEDGEN [place] mL/min/1 to non-numeric (Dante .73m2 results) Medical Service) EGFR AFR 91 Normal (applies MEDGEN [place] mL/min/1 to non-numeric (Jonny .73m2 results) Medical Service) ID Date Data Source [id number] 11/23/2019 12:00:00 AM EST [facility] ([facility]) Name Value Range Interpretation Description Data Sup porting Code Source(s) Document(s ) Cholesterol 237 Above high normal MEDGEN [Moles/volume] mg/dL (Jonny in Pericardial Medical fluid Service) LDL CALCULATION 137.0 Above high normal MEDGEN mg/dL ([facility] Medical Service) CHOL/HDL RATIO 2.96 Normal (applies MEDGEN ratio to non-numeric (Dante results) Medical Service) HDL CHOLESTEROL 80 mg/dL Normal (applies MEDGEN to non-numeric (Jonny results) Medical Service) VLDL CALCULATION 20.0 Normal (applies MEDGEN mg/dl to non-numeric (Dante results) Medical Service) TRIGLYCERIDES 100 Normal (applies MEDGEN mg/dL to non-numeric (Jonny results) Medical Service) ID Date Data Source [id number] 11/23/2019 12:00:00 AM EST [facility] ([facility] [employer] [facility]) Name Value Range Interpretation Description Data Sup porting Code Source(s) Document(s ) GLUCOSE UA NEGATIVE Normal (applies MEDGEN to non-numeric (Dante results) Medical Service) BILIRUBIN, TOTAL NEGATIVE Normal (applies MEDGEN to non-numeric (Jonny results) Medical Service) Ketones NEGATIVE Normal (applies MEDGEN [Presence] in to non-numeric (Dante Blood by Tablet results) Medical Service) Specific gravity 1.019 SG Normal (applies MEDGEN of Pericardial units to non-numeric (Dante fluid by results) Medical Refractometry Service) Blood [Presence] NEGATIVE Normal (applies MEDGEN in Urine by to non-numeric (Dante Visual results) Medical Service) Protein NEGATIVE Normal (applies MEDGEN [Mass/volume] in to non-numeric ([place] [facility] Lower results) Medical respiratory Service) specimen pH of Lower 5 Ph units Normal (applies MEDGEN respiratory to non-numeric (Jonny specimen results) Medical Service) Urobilinogen 0-2.0 Normal (applies MEDGEN [Presence] in to non-numeric (Dante Urine by results) Medical Automated test Service) strip Nitrite NEGATIVE Normal (applies MEDGEN [Presence] in to non-numeric (Dante Urine by Test results) Medical strip Service) Leukocyte NEGATIVE Normal (applies MEDGEN esterase to non-numeric (Jonny [Presence] in results) Medical Body fluid by Service) Automated test strip Color of YELLOW Normal (applies MEDGEN Peritoneal to non-numeric (Dante dialysis fluid results) Medical Service) TRANSPARENCY CLEAR Normal (applies MEDGEN to non-numeric (Jonny results) Medical Service) ID Date Data Source [id number] 11/23/2019 12:00:00 AM EST [facility] ([facility]) Name Value Range Interpretation Description Data Sup porting Code Source(s) Document(s ) WBC 7.2 Normal (applies MEDGEN 10(3)/uL to non-numeric (Jonny results) Medical Service) RBC 4.1 Normal (applies MEDGEN 10(6)/uL to non-numeric (Jonny results) Medical Service) Hemoglobin 12.7 g/dL Normal (applies MEDGEN [Mass/volume] to non-numeric (Dante in Mixed venous results) Medical blood by Service) Oximetry MCV 92.7 fL Normal (applies MEDGEN to non-numeric (Jonny results) Medical Service) Hematocrit 38.2 % Normal (applies MEDGEN [Pure volume to non-numeric (Jonny fraction] of results) Medical Blood by Service) Automated count MCH 31 pg Normal (applies MEDGEN to non-numeric (Dante results) Medical Service) MCHC 33 g/dL Normal (applies MEDGEN to non-numeric (Dante results) Medical Service) RDWCV 12.9 % Normal (applies MEDGEN to non-numeric (Jonny results) Medical Service) RDWSD 43.0 fL Normal (applies MEDGEN to non-numeric (Jonny results) Medical Service) Platelet Count 288 Normal (applies MEDGEN 10(3)/uL to non-numeric (Dante results) Medical Service) MPV 12.3 fL Normal (applies MEDGEN to non-numeric (Dante results) Medical Service) Neutrophil Abs 3.84 Normal (applies MEDGEN 10(3)/uL to non-numeric (Jonny results) Medical Service) Lymphocyte Abs 2.27 Normal (applies MEDGEN 10(3)/uL to non-numeric (Dante results) Medical Service) Monocyte Abs 0.72 Normal (applies MEDGEN 10(3)/uL to non-numeric (Jonny results) Medical Service) Basophil Abs 0.07 Normal (applies MEDGEN 10(3)/uL to non-numeric (Jonny results) Medical Service) Eosinophil Abs 0.26 Normal (applies MEDGEN 10(3)/uL to non-numeric (Dante results) Medical Service) Immature 0.02 Normal (applies MEDGEN Granulocyte Abs 10(3)/uL to non-numeric (Jonny results) Medical Service) Neutrophil % 53.60 % Normal (applies MEDGEN to non-numeric (Jonny results) Medical Service) Lymphocyte % 32 % Normal (applies MEDGEN to non-numeric (Dante results) Medical Service) Monocyte % 10.1 % Normal (applies MEDGEN to non-numeric (Dante results) Medical Service) Eosinophil % 3.6 % Normal (applies MEDGEN to non-numeric (Dante results) Medical Service) Immature 0.30 % Normal (applies MEDGEN Granulocyte % to non-numeric (Dante results) Medical Service) Basophil % 1.0 % Normal (applies MEDGEN to non-numeric (Dante results) Medical Service) NRBC % 0.0 % Normal (applies MEDGEN to non-numeric (Jonny results) Medical Service) NRBC Abs 0.00 Normal (applies MEDGEN 10(3)/uL to non-numeric (Dante results) Medical Service) ID Date Data Source [id number] 11/23/2019 12:00:00 AM EST MEDGEN ([facility]) Name Value Range Interpretation Description Data Sup porting Code Source(s) Document(s ) T4 TOTAL 5.7 ug/dL Normal (applies to MEDGEN THYROXINE non-numeric (Dante results) Medical Service) TSH,3RD 3.56 Normal (applies to MEDGEN GENERATION uIU/mL non-numeric (Dante results) Medical Service) T3 TOTAL 101 ng/dL Normal (applies to MEDGEN non-numeric (Dante results) Medical Service) ID Date Data Source [id number] 11/23/2019 12:00:00 AM EST MEDGEN ([facility] [employer] [facility]) Name Value Range Interpretation Description Data Sup porting Code Source(s) Document(s ) VITAMIN D 25.83 Below low normal MEDGEN 25-HYDROXY ng/mL ([facility] [employer] [facility]) ID Date Data Source [id number] 11/23/2019 12:00:00 AM EST MEDGEN ([facility] [employer] [facility]) Name Value Range Interpretation Code Description Data Supporting Source(s) Document(s ) GLYCOMARK 13.91 Normal (applies to MEDGEN ug/mL non-numeric (Jonny results) Medical Service) ID Date Data Source [id number] 11/23/2019 12:00:00 AM EST MEDGEN ([facility] [employer] [facility]) Name Value Range Interpretation Description Data Sup porting Code Source(s) Document(s ) Hemoglobin A1c 6.3 % Above high normal MEDGEN in Blood ([facility] [employer] [facility]) ID Date Data Source [id number] 11/23/2019 12:00:00 AM EST MEDGEN ([facility] [employer] [facility]) Name Value Range Interpretation Description Data Sup porting Code Source(s) Document(s ) MICROALBUMIN 0.3 Normal (applies MEDGEN URINE mg/dL to non-numeric (Dante results) Medical Service) ID Date Data Source [id number] 11/23/2019 12:00:00 AM EST MEDGEN ([facility] [employer] [facility]) Name Value Range Interpretation Description Data Sup porting Code Source(s) Document(s ) VITAMIN B12 280 pg/mL Normal (applies to MEDGEN non-numeric (Jonny results) Medical Service) ID Date Data Source [id number] 11/23/2019 12:00:00 AM EST MEDGEN ([facility] [employer] [facility]) Name Value Range Interpretation Description Data Sup porting Code Source(s) Document(s ) GLUCOSE 106 Normal (applies MEDGEN NONFASTING,SERUM mg/dL to non-numeric ([place] results) Medical Service) SODIUM, SERUM 141 Normal (applies MEDGEN mEq/L to non-numeric (Jonny results) Medical Service) POTASSIUM, SERUM 5.1 Normal (applies MEDGEN mEq/L to non-numeric (Jonny results) Medical Service) CHLORIDE, SERUM 103 Normal (applies MEDGEN mEq/L to non-numeric (Dante results) Medical Service) Carbon dioxide 27 mEq/L Normal (applies MEDGEN [VFr/PPres] in to non-numeric (Dante [employer] results) Medical system Service) Anion gap in 16.1 Normal (applies MEDGEN Body fluid mEq/L to non-numeric (Dante results) Medical Service) BLOOD UREA 21 mg/dL Normal (applies MEDGEN NITROGEN to non-numeric (Dante results) Medical Service) CALCIUM, SERUM 10.2 Normal (applies MEDGEN mg/dL to non-numeric (Dante results) Medical Service) CREATININE, 0.80 Normal (applies MEDGEN SERUM mg/dL to non-numeric (Dante results) Medical Service) TOTAL PROTEIN 7.6 g/dL Normal (applies MEDGEN to non-numeric (Dante results) Medical Service) Microalbumin 4.7 g/dL Normal (applies MEDGEN [Mass/time] in to non-numeric (Dante Urine collected results) Medical for unspecified Service) duration Globulin 2.9 gldl Normal (applies MEDGEN [Mass/time] in to non-numeric (Dante 24 hour Urine results) Medical Service) A/G RATIO 1.62 Normal (applies MEDGEN g/dl to non-numeric (Dante results) Medical Service) BILIRUBIN, TOTAL 0.4 Normal (applies MEDGEN mg/dL to non-numeric (Dante results) Medical Service) ALKALINE 84 U/L Normal (applies MEDGEN PHOSPHATASE, [facility]) ALT (SGPT) 17 U/L Normal (applies MEDGEN to non-numeric (Dante results) Medical Service) AST 23 U/L Normal (applies MEDGEN to non-numeric (Dante results) Medical Service) EGFR NON AFR 75 Normal (applies MEDGEN [place] mL/min/1 to non-numeric (Dante .73m2 results) Medical Service) EGFR AFR 91 Normal (applies MEDGEN [place] mL/min/1 to non-numeric (Dante .73m2 results) Medical Service) ID Date Data Source [id number] 11/23/2019 12:00:00 AM EST MEDGEN ([facility]) Name Value Range Interpretation Description Data Sup porting Code Source(s) Document(s ) Cholesterol 237 Above high normal MEDGEN [Moles/volume] mg/dL (Dante in Pericardial Medical fluid Service) LDL CALCULATION 137.0 Above high normal MEDGEN mg/dL (Dante Medical Service) HDL CHOLESTEROL 80 mg/dL Normal (applies MEDGEN to non-numeric (Dante results) Medical Service) CHOL/HDL RATIO 2.96 Normal (applies MEDGEN ratio to non-numeric (Jonny results) Medical Service) VLDL CALCULATION 20.0 Normal (applies MEDGEN mg/dl to non-numeric (Dante results) Medical Service) TRIGLYCERIDES 100 Normal (applies MEDGEN mg/dL to non-numeric (Jonny results) Medical Service) ID Date Data Source [id number] 11/23/2019 12:00:00 AM EST MEDGEN ([employer] [facility]) Name Value Range Interpretation Description Data Sup porting Code Source(s) Document(s ) GLUCOSE UA NEGATIVE Normal (applies MEDGEN to non-numeric (Dante results) Medical Service) Ketones NEGATIVE Normal (applies MEDGEN [Presence] in to non-numeric (Dante Blood by Tablet results) Medical Service) BILIRUBIN, TOTAL NEGATIVE Normal (applies MEDGEN to non-numeric (Dante results) Medical Service) Specific gravity 1.019 SG Normal (applies MEDGEN of Pericardial units to non-numeric (Dante fluid by results) Medical Refractometry Service) Blood [Presence] NEGATIVE Normal (applies MEDGEN in Urine by to non-numeric (Dante Visual results) Medical Service) pH of Lower 5 Ph units Normal (applies MEDGEN respiratory to non-numeric (Dante specimen results) Medical Service) Protein NEGATIVE Normal (applies MEDGEN [Mass/volume] in to non-numeric ([facility] results) Medical respiratory Service) specimen Nitrite NEGATIVE Normal (applies MEDGEN [Presence] in to non-numeric (Dante Urine by Test results) Medical strip Service) Urobilinogen 0-2.0 Normal (applies MEDGEN [Presence] in to non-numeric (Dante Urine by results) Medical Automated test Service) strip Leukocyte NEGATIVE Normal (applies MEDGEN esterase to non-numeric (Dante [Presence] in results) Medical Body fluid by Service) Automated test strip TRANSPARENCY CLEAR Normal (applies MEDGEN to non-numeric (Dante results) Medical Service) Color of YELLOW Normal (applies MEDGEN Peritoneal to non-numeric (Dante dialysis fluid results) Medical Service) ID Date Data Source [id number] 11/23/2019 12:00:00 AM EST MEDGEN ([employer] [facility]) Name Value Range Interpretation Description Data Sup porting Code Source(s) Document(s ) WBC 7.2 Normal (applies MEDGEN 10(3)/uL to non-numeric (Jonny results) Medical Service) RBC 4.1 Normal (applies MEDGEN 10(6)/uL to non-numeric (Jonny results) Medical Service) Hemoglobin 12.7 g/dL Normal (applies MEDGEN [Mass/volume] to non-numeric (Jonny in Mixed venous results) Medical blood by Service) Oximetry Hematocrit 38.2 % Normal (applies MEDGEN [Pure volume to non-numeric (Jonny fraction] of results) Medical Blood by Service) Automated count MCV 92.7 fL Normal (applies MEDGEN to non-numeric (Dante results) Medical Service) MCH 31 pg Normal (applies MEDGEN to non-numeric (Jonny results) Medical Service) MCHC 33 g/dL Normal (applies MEDGEN to non-numeric (Jonny results) Medical Service) RDWSD 43.0 fL Normal (applies MEDGEN to non-numeric (Dante results) Medical Service) RDWCV 12.9 % Normal (applies MEDGEN to non-numeric (Jonny results) Medical Service) Platelet Count 288 Normal (applies MEDGEN 10(3)/uL to non-numeric (Dante results) Medical Service) MPV 12.3 fL Normal (applies MEDGEN to non-numeric (Dante results) Medical Service) Neutrophil Abs 3.84 Normal (applies MEDGEN 10(3)/uL to non-numeric (Dante results) Medical Service) Lymphocyte Abs 2.27 Normal (applies MEDGEN 10(3)/uL to non-numeric (Dante results) Medical Service) Monocyte Abs 0.72 Normal (applies MEDGEN 10(3)/uL to non-numeric (Dante results) Medical Service) Eosinophil Abs 0.26 Normal (applies MEDGEN 10(3)/uL to non-numeric (Jonny results) Medical Service) Immature 0.02 Normal (applies MEDGEN Granulocyte Abs 10(3)/uL to non-numeric (Jonny results) Medical Service) Basophil Abs 0.07 Normal (applies MEDGEN 10(3)/uL to non-numeric (Dante results) Medical Service) Neutrophil % 53.60 % Normal (applies MEDGEN to non-numeric (Jonny results) Medical Service) Lymphocyte % 32 % Normal (applies MEDGEN to non-numeric (Jonny results) Medical Service) Monocyte % 10.1 % Normal (applies MEDGEN to non-numeric (Dante results) Medical Service) Eosinophil % 3.6 % Normal (applies MEDGEN to non-numeric (Dante results) Medical Service) Immature 0.30 % Normal (applies MEDGEN Granulocyte % to non-numeric (Jonny results) Medical Service) Basophil % 1.0 % Normal (applies MEDGEN to non-numeric (Dante results) Medical Service) NRBC % 0.0 % Normal (applies MEDGEN to non-numeric (Dante results) Medical Service) NRBC Abs 0.00 Normal (applies MEDGEN 10(3)/uL to non-numeric (Dante results) Medical Service) ID Date Data Source [id number] 11/23/2019 12:00:00 AM EST MEDGEN ([facility]) Name Value Range Interpretation Description Data Sup porting Code Source(s) Document(s ) TSH,3RD 3.56 Normal (applies to MEDGEN GENERATION uIU/mL non-numeric (Dante results) Medical Service) T4 TOTAL 5.7 ug/dL Normal (applies to MEDGEN THYROXINE non-numeric (Jonny results) Medical Service) T3 TOTAL 101 ng/dL Normal (applies to MEDGEN non-numeric (Jonny results) Medical Service) ID Date Data Source [id number] 11/23/2019 12:00:00 AM EST MEDGEN ([facility]) Name Value Range Interpretation Description Data Sup porting Code Source(s) Document(s ) VITAMIN D 25.83 Below low normal MEDGEN 25-HYDROXY ng/mL ([facility]) ID Date Data Source [id number] 11/23/2019 12:00:00 AM EST MEDGEN ([facility]) Name Value Range Interpretation Code Description Data Supporting Source(s) Document(s ) GLYCOMARK 13.91 Normal (applies to MEDGEN ug/mL non-numeric (Dante results) Medical Service) ID Date Data Source [id number] 11/23/2019 12:00:00 AM EST MEDGEN ([facility]) Name Value Range Interpretation Description Data Sup porting Code Source(s) Document(s ) Hemoglobin A1c 6.3 % Above high normal MEDGEN in Blood ([employer] [facility]) ID Date Data Source [id number] 11/23/2019 12:00:00 AM EST MEDGEN ([facility]) Name Value Range Interpretation Description Data Sup porting Code Source(s) Document(s ) MICROALBUMIN 0.3 Normal (applies MEDGEN URINE mg/dL to non-numeric (Dante results) Medical Service) ID Date Data Source [id number] 11/23/2019 12:00:00 AM EST MEDGEN ([facility]) Name Value Range Interpretation Description Data Sup porting Code Source(s) Document(s ) VITAMIN B12 280 pg/mL Normal (applies to MEDGEN non-numeric (Jonny results) Medical Service) ID Date Data Source [id number] 11/23/2019 12:00:00 AM EST MEDGEN ([facility] [employer] [facility]) Name Value Range Interpretation Description Data Sup porting Code Source(s) Document(s ) SODIUM, SERUM 141 Normal (applies MEDGEN mEq/L to non-numeric (Dante results) Medical Service) GLUCOSE 106 Normal (applies MEDGEN NONFASTING,SERUM mg/dL to non-numeric ([facility] y results) Medical Service) POTASSIUM, SERUM 5.1 Normal (applies MEDGEN mEq/L to non-numeric (Dante results) Medical Service) Carbon dioxide 27 mEq/L Normal (applies MEDGEN [VFr/PPres] in to non-numeric (Dante [employer] results) Medical system Service) CHLORIDE, SERUM 103 Normal (applies MEDGEN mEq/L to non-numeric (Dante results) Medical Service) Anion gap in 16.1 Normal (applies MEDGEN Body fluid mEq/L to non-numeric (Dante results) Medical Service) CREATININE, 0.80 Normal (applies MEDGEN SERUM mg/dL to non-numeric (Jonny results) Medical Service) BLOOD UREA 21 mg/dL Normal (applies MEDGEN NITROGEN to non-numeric (Jonny results) Medical Service) CALCIUM, SERUM 10.2 Normal (applies MEDGEN mg/dL to non-numeric (Jonny results) Medical Service) Microalbumin 4.7 g/dL Normal (applies MEDGEN [Mass/time] in to non-numeric (Dante Urine collected results) Medical for unspecified Service) duration TOTAL PROTEIN 7.6 g/dL Normal (applies MEDGEN to non-numeric (Jonny results) Medical Service) Globulin 2.9 gldl Normal (applies MEDGEN [Mass/time] in to non-numeric (Dante 24 hour Urine results) Medical Service) A/G RATIO 1.62 Normal (applies MEDGEN g/dl to non-numeric (Jonny results) Medical Service) BILIRUBIN, TOTAL 0.4 Normal (applies MEDGEN mg/dL to non-numeric (Jonny results) Medical Service) ALKALINE 84 U/L Normal (applies MEDGEN PHOSPHATASE, ALP to non-numeric ([facility] Medical Service) ALT (SGPT) 17 U/L Normal (applies MEDGEN to non-numeric (Dante results) Medical Service) EGFR NON AFR 75 Normal (applies MEDGEN [place] mL/min/1 to non-numeric (Dante .73m2 results) Medical Service) AST 23 U/L Normal (applies MEDGEN to non-numeric (Dante results) Medical Service) EGFR AFR 91 Normal (applies MEDGEN [place] mL/min/1 to non-numeric (Dante .73m2 results) Medical Service) ID Date Data Source [id number] 05/09/2019 12:00:00 AM EDT MEDGEN ([facility] [employer]) Name Value Range Interpretation Description Data Sup porting Code Source(s) Document(s ) TSH,3RD 3.61 Normal (applies to MEDGEN GENERATION uIU/mL non-numeric (Jonny results) Medical Service) T4 TOTAL 5.3 ug/dL Normal (applies to MEDGEN THYROXINE non-numeric (Jonny results) Medical Service) T3 TOTAL 96 ng/dL Normal (applies to MEDGEN non-numeric (Jonny results) Medical Service) ID Date Data Source [id number] 05/09/2019 12:00:00 AM EDT MEDGEN ([employer]) Name Value Range Interpretation Description Data Sup porting Code Source(s) Document(s ) VITAMIN D 23.44 Below low normal MEDGEN 25-HYDROXY ng/mL ([employer] [facility] Service) ID Date Data Source [id number] 05/09/2019 12:00:00 AM EDT MEDGEN [employer]) Name Value Range Interpretation Description Data Sup porting Code Source(s) Document(s ) VITAMIN B12 400 pg/mL Normal (applies to MEDGEN non-numeric (Jonny results) Medical Service) ID Date Data Source [id number] 05/09/2019 12:00:00 AM EDT MEDGEN [employer]) Name Value Range Interpretation Description Data Sup porting Code Source(s) Document(s ) MICROALBUMIN 0.3 Normal (applies MEDGEN URINE mg/dL to non-numeric (Jonny results) Medical Service) ID Date Data Source [id number] 05/09/2019 12:00:00 AM EDT MEDGEN ([facility]) Name Value Range Interpretation Description Data Sup porting Code Source(s) Document(s ) FOLATE 15.5 ng/mL Above high normal MEDGEN SERUM (Dante Medical Service) ID Date Data Source [id number] 05/09/2019 12:00:00 AM EDT MEDGEN ([facility]) Name Value Range Interpretation Description Data Sup porting Code Source(s) Document(s ) Cholesterol 201 Above high normal MEDGEN [Moles/volume] mg/dL (Dante in Pericardial Medical fluid Service) CHOL/HDL RATIO 3.53 Normal (applies MEDGEN ratio to non-numeric (Dante results) Medical Service) LDL CALCULATION 119.6 Normal (applies MEDGEN mg/dL to non-numeric (Dante results) Medical Service) HDL CHOLESTEROL 57 mg/dL Above high normal MEDGEN ([facility] Medical Service) VLDL CALCULATION 24.4 Normal (applies MEDGEN mg/dl to non-numeric (Dante results) Medical Service) TRIGLYCERIDES 122 Normal (applies MEDGEN mg/dL to non-numeric (Dante results) Medical Service) ID Date Data Source [id number] 05/09/2019 12:00:00 AM EDT MEDGEN ([facility]) Name Value Range Interpretation Description Data Sup porting Code Source(s) Document(s ) GLUCOSE 105 Normal (applies MEDGEN NONFASTING,SERUM mg/dL to non-numeric ([facility] Medical Service) SODIUM, SERUM 139 Normal (applies MEDGEN mEq/L to non-numeric (Dante results) Medical Service) POTASSIUM, SERUM 4.8 Normal (applies MEDGEN mEq/L to non-numeric (Dante results) Medical Service) CHLORIDE, SERUM 101 Normal (applies MEDGEN mEq/L to non-numeric (Dante results) Medical Service) Carbon dioxide 25 mEq/L Normal (applies MEDGEN [VFr/PPres] in to non-numeric (Dante [employer] results) Medical system Service) Anion gap in 17.8 Normal (applies MEDGEN Body fluid mEq/L to non-numeric (Dante results) Medical Service) BLOOD UREA 19 mg/dL Normal (applies MEDGEN NITROGEN to non-numeric (Dante results) Medical Service) CALCIUM, SERUM 9.5 Normal (applies MEDGEN mg/dL to non-numeric (Dante results) Medical Service) CREATININE, 0.90 Normal (applies MEDGEN SERUM mg/dL to non-numeric (Dante results) Medical Service) TOTAL PROTEIN 7.3 g/dL Normal (applies MEDGEN to non-numeric (Dante results) Medical Service) Microalbumin 4.5 g/dL Normal (applies MEDGEN [Mass/time] in to non-numeric (Dante Urine collected results) Medical for unspecified Service) duration Globulin 2.8 gldl Normal (applies MEDGEN [Mass/time] in to non-numeric (Dante 24 hour Urine results) Medical Service) A/G RATIO 1.61 Normal (applies MEDGEN g/dl to non-numeric (Dante results) Medical Service) BILIRUBIN, TOTAL 0.4 Normal (applies MEDGEN mg/dL to non-numeric (Dante results) Medical Service) ALKALINE 88 U/L Normal (applies MEDGEN PHOSPHATASE, ALP to non-numeric ([facility] y results) Medical Service) AST 27 U/L Normal (applies MEDGEN to non-numeric (Dante results) Medical Service) ALT (SGPT) 13 U/L Normal (applies MEDGEN to non-numeric (Dante results) Medical Service) EGFR NON AFR 65 Above high normal MEDGEN [place] mL/min/1 (Dante .73m2 Medical Service) EGFR AFR 79 Above high normal MEDGEN [place] mL/min/1 (Dante .73m2 Medical Service) ID Date Data Source [id number] 05/09/2019 12:00:00 AM EDT MEDGEN ([facility]) Name Value Range Interpretation Description Data Sup porting Code Source(s) Document(s ) GLUCOSE UA NEGATIVE Normal (applies MEDGEN to non-numeric (Dante results) Medical Service) BILIRUBIN, TOTAL NEGATIVE Normal (applies MEDGEN to non-numeric (Dante results) Medical Service) Ketones NEGATIVE Normal (applies MEDGEN [Presence] in to non-numeric (Dante Blood by Tablet results) Medical Service) Specific gravity 1.014 SG Normal (applies MEDGEN of Pericardial units to non-numeric (Dante fluid by results) Medical Refractometry Service) Blood [Presence] NEGATIVE Normal (applies MEDGEN in Urine by to non-numeric (Dante Visual results) Medical Service) pH of Lower 5 Ph units Normal (applies MEDGEN respiratory to non-numeric (Dante specimen results) Medical Service) Protein NEGATIVE Normal (applies MEDGEN [Mass/volume] in to non-numeric ([place] [facility] Lower results) Medical respiratory Service) specimen Urobilinogen 0-2.0 Normal (applies MEDGEN [Presence] in to non-numeric (Jonny Urine by results) Medical Automated test Service) strip Nitrite NEGATIVE Normal (applies MEDGEN [Presence] in to non-numeric (Jonny Urine by Test results) Medical strip Service) Leukocyte NEGATIVE Normal (applies MEDGEN esterase to non-numeric (Jonny [Presence] in results) Medical Body fluid by Service) Automated test strip TRANSPARENCY CLEAR Normal (applies MEDGEN to non-numeric (Dante results) Medical Service) Color of YELLOW Normal (applies MEDGEN Peritoneal to non-numeric (Jonny dialysis fluid results) Medical Service) ID Date Data Source [id number] 05/09/2019 12:00:00 AM EDT MEDGEN ([facility]) Name Value Range Interpretation Description Data Sup porting Code Source(s) Document(s ) WBC 8.4 Normal (applies MEDGEN 10(3)/uL to non-numeric (Jonny results) Medical Service) RBC 4.4 Normal (applies MEDGEN 10(6)/uL to non-numeric (Dante results) Medical Service) Hemoglobin 13.5 g/dL Normal (applies MEDGEN [Mass/volume] to non-numeric (Jonny in Mixed venous results) Medical blood by Service) Oximetry MCV 94.1 fL Normal (applies MEDGEN to non-numeric (Jonny results) Medical Service) Hematocrit 41.1 % Normal (applies MEDGEN [Pure volume to non-numeric (Dante fraction] of results) Medical Blood by Service) Automated count MCH 31 pg Normal (applies MEDGEN to non-numeric (Dante results) Medical Service) MCHC 33 g/dL Normal (applies MEDGEN to non-numeric (Jonny results) Medical Service) RDWSD 45.3 fL Normal (applies MEDGEN to non-numeric (Jonny results) Medical Service) RDWCV 13.4 % Normal (applies MEDGEN to non-numeric (Jonny results) Medical Service) Platelet Count 283 Normal (applies MEDGEN 10(3)/uL to non-numeric (Dante results) Medical Service) MPV 12.6 fL Normal (applies MEDGEN to non-numeric (Dante results) Medical Service) Neutrophil Abs 5.12 Normal (applies MEDGEN 10(3)/uL to non-numeric (Jonny results) Medical Service) Lymphocyte Abs 2.26 Normal (applies MEDGEN 10(3)/uL to non-numeric (Jonny results) Medical Service) Monocyte Abs 0.65 Normal (applies MEDGEN 10(3)/uL to non-numeric (Dante results) Medical Service) Eosinophil Abs 0.31 Normal (applies MEDGEN 10(3)/uL to non-numeric (Dante results) Medical Service) Neutrophil % 60.60 % Normal (applies MEDGEN to non-numeric (Jonny results) Medical Service) Lymphocyte % 27 % Normal (applies MEDGEN to non-numeric (Dante results) Medical Service) Monocyte % 7.7 % Normal (applies MEDGEN to non-numeric (Jonny results) Medical Service) Basophil % 0.7 % Normal (applies MEDGEN to non-numeric (Jonny results) Medical Service) Eosinophil % 3.7 % Normal (applies MEDGEN to non-numeric (Jonny results) Medical Service) Immature 0.50 % Normal (applies MEDGEN Granulocyte % to non-numeric (Dante results) Medical Service) ID Date Data Source [id number] 05/09/2019 12:00:00 AM EDT MEDGEN ([facility]) Name Value Range Interpretation Code Description Data Supporting Source(s) Document(s ) GLYCOMARK 11.73 Normal (applies to MEDGEN ug/mL non-numeric (Dante results) Medical Service) ID Date Data Source [id number] 05/09/2019 12:00:00 AM EDT MEDGEN ([facility]) Name Value Range Interpretation Description Data Sup porting Code Source(s) Document(s ) Hemoglobin A1c 6.5 % Above high normal MEDGEN in Blood ([facility] Medical Service) ID Date Data Source [id number] 05/09/2019 12:00:00 AM EDT MEDGEN ([facility]) Name Value Range Interpretation Description Data Sup porting Code Source(s) Document(s ) TSH,3RD 3.61 Normal (applies to MEDGEN GENERATION uIU/mL non-numeric (Jonny results) Medical Service) T3 TOTAL 96 ng/dL Normal (applies to MEDGEN non-numeric (Dante results) Medical Service) T4 TOTAL 5.3 ug/dL Normal (applies to MEDGEN THYROXINE non-numeric (Jonny results) Medical Service) ID Date Data Source [id number] 05/09/2019 12:00:00 AM EDT MEDGEN ([facility]) Name Value Range Interpretation Description Data Sup porting Code Source(s) Document(s ) VITAMIN D 23.44 Below low normal MEDGEN 25-HYDROXY ng/mL ([facility] Medical Service) ID Date Data Source [id number] 05/09/2019 12:00:00 AM EDT MEDGEN ([facility]) Name Value Range Interpretation Description Data Sup porting Code Source(s) Document(s ) VITAMIN B12 400 pg/mL Normal (applies to MEDGEN non-numeric (Jonny results) Medical Service) ID Date Data Source [id number] 05/09/2019 12:00:00 AM EDT MEDGEN ([facility]) Name Value Range Interpretation Description Data Sup porting Code Source(s) Document(s ) MICROALBUMIN 0.3 Normal (applies MEDGEN URINE mg/dL to non-numeric (Jonny results) Medical Service) ID Date Data Source [id number] 05/09/2019 12:00:00 AM EDT MEDGEN ([facility] Service) Name Value Range Interpretation Description Data Sup porting Code Source(s) Document(s ) FOLATE 15.5 ng/mL Above high normal MEDGEN SERUM ([facility]) ID Date Data Source [id number] 05/09/2019 12:00:00 AM EDT MEDGEN ([facility] Medical Service) Name Value Range Interpretation Description Data Sup porting Code Source(s) Document(s ) Cholesterol 201 Above high normal MEDGEN [Moles/volume] mg/dL ([facility] in Pericardial Medical fluid Service) LDL CALCULATION 119.6 Normal (applies MEDGEN mg/dL to non-numeric ([facility] results) Medical Service) CHOL/HDL RATIO 3.53 Normal (applies MEDGEN ratio to non-numeric ([facility]ante results) Medical Service) HDL CHOLESTEROL 57 mg/dL Above high normal MEDGEN ([facility]) VLDL CALCULATION 24.4 Normal (applies MEDGEN mg/dl to non-numeric (Jonny results) Medical Service) TRIGLYCERIDES 122 Normal (applies MEDGEN mg/dL to non-numeric (Jonny results) Medical Service) ID Date Data Source [id number] 05/09/2019 12:00:00 AM EDT MEDGEN ([facility] Medical Service) Name Value Range Interpretation Description Data Sup porting Code Source(s) Document(s ) GLUCOSE 105 Normal (applies MEDGEN NONFASTING,SERUM mg/dL [facility] non-[facility]) SODIUM, SERUM 139 Normal (applies MEDGEN mEq/L to non-numeric (Jonny results) Medical Service) CHLORIDE, SERUM 101 Normal (applies MEDGEN mEq/L to non-numeric (Jonny results) Medical Service) POTASSIUM, SERUM 4.8 Normal (applies MEDGEN mEq/L to non-numeric ([facility]ny results) Medical Service) Carbon dioxide 25 mEq/L Normal (applies MEDGEN [VFr/PPres] in to non-numeric ([facility] [employer] results) Medical system Service) Anion gap in 17.8 Normal (applies MEDGEN Body fluid mEq/L to non-numeric ([facility] results) Medical Service) CREATININE, 0.90 Normal (applies MEDGEN SERUM mg/dL to non-numeric ([facility]ante results) Medical Service) BLOOD UREA 19 mg/dL Normal (applies MEDGEN NITROGEN to non-numeric ([facility]ante results) Medical Service) CALCIUM, SERUM 9.5 Normal (applies MEDGEN mg/dL to non-numeric ([facility]ante results) Medical Service) TOTAL PROTEIN 7.3 g/dL Normal (applies MEDGEN to non-numeric ([facility]ante results) Medical Service) Microalbumin 4.5 g/dL Normal (applies MEDGEN [Mass/time] in to non-numeric ([facility] Urine collected results) Medical for unspecified Service) duration Globulin 2.8 gldl Normal (applies MEDGEN [Mass/time] in to non-numeric ([facility]ante 24 hour Urine results) Medical Service) A/G RATIO 1.61 Normal (applies MEDGEN g/dl to non-numeric ([facility]ante results) Medical Service) BILIRUBIN, TOTAL 0.4 Normal (applies MEDGEN mg/dL to non-numeric ([facility]ante results) Medical Service) ALT (SGPT) 13 U/L Normal (applies MEDGEN to non-numeric (Jonny results) Medical Service) ALKALINE 88 U/L Normal (applies MEDGEN PHOSPHATASE, ALP to non-numeric ([facility]) AST 27 U/L Normal (applies MEDGEN to non-numeric ([facility] results) Medical Service) EGFR NON AFR 65 Above high normal MEDGEN [place] mL/min/1 ([facility] .73m2 Medical Service) EGFR AFR 79 Above high normal MEDGEN [place] mL/min/1 ([facility] .73m2 Medical Service) ID Date Data Source [id number] 05/09/2019 12:00:00 AM EDT MEDGEN ([facility] [employer] [facility]) Name Value Range Interpretation Description Data Sup porting Code Source(s) Document(s ) GLUCOSE UA NEGATIVE Normal (applies MEDGEN to non-numeric (Jonny results) Medical Service) BILIRUBIN, TOTAL NEGATIVE Normal (applies MEDGEN to non-numeric (Jonny results) Medical Service) Ketones NEGATIVE Normal (applies MEDGEN [Presence] in to non-numeric ([facility] Blood by Tablet results) Medical Service) Specific gravity 1.014 SG Normal (applies MEDGEN of Pericardial units to non-numeric ([facility]ante fluid by results) Medical Refractometry Service) Blood [Presence] NEGATIVE Normal (applies MEDGEN in Urine by to non-numeric ([facility] Visual results) Medical Service) pH of Lower 5 Ph units Normal (applies MEDGEN respiratory to non-numeric ([facility]ante specimen results) Medical Service) Protein NEGATIVE Normal (applies MEDGEN [Mass/volume] in to non-numeric ([facility]) Medical respiratory Service) specimen Urobilinogen 0-2.0 Normal (applies MEDGEN [Presence] in to non-numeric ([facility] Urine by results) Medical Automated test Service) strip Nitrite NEGATIVE Normal (applies MEDGEN [Presence] in to non-numeric ([facility] Urine by Test results) Medical strip Service) Leukocyte NEGATIVE Normal (applies MEDGEN esterase to non-numeric (Jonny [Presence] in results) Medical Body fluid by Service) Automated test strip Color of YELLOW Normal (applies MEDGEN Peritoneal to non-numeric (Jonny dialysis fluid results) Medical Service) TRANSPARENCY CLEAR Normal (applies MEDGEN to non-numeric ([facility]ante results) Medical Service) ID Date Data Source [id number] 05/09/2019 12:00:00 AM EDT MEDGEN ([facility] [employer] [facility]) Name Value Range Interpretation Description Data Sup porting Code Source(s) Document(s ) RBC 4.4 Normal (applies MEDGEN 10(6)/uL to non-numeric ([facility]ante results) Medical Service) WBC 8.4 Normal (applies MEDGEN 10(3)/uL to non-numeric (Jonny results) Medical Service) Hemoglobin 13.5 g/dL Normal (applies MEDGEN [Mass/volume] to non-numeric ([facility] in Mixed venous results) Medical blood by Service) Oximetry Hematocrit 41.1 % Normal (applies MEDGEN [Pure volume to non-numeric (Jonny fraction] of results) Medical Blood by Service) Automated count MCH 31 pg Normal (applies MEDGEN to non-numeric (Jonny results) Medical Service) MCV 94.1 fL Normal (applies MEDGEN to non-numeric (Jonny results) Medical Service) MCHC 33 g/dL Normal (applies MEDGEN to non-numeric (Jonny results) Medical Service) RDWSD 45.3 fL Normal (applies MEDGEN to non-numeric ([facility]ante results) Medical Service) Platelet Count 283 Normal (applies MEDGEN 10(3)/uL to non-numeric (Dante results) Medical Service) RDWCV 13.4 % Normal (applies MEDGEN to non-numeric (Dante results) Medical Service) MPV 12.6 fL Normal (applies MEDGEN to non-numeric (Jonny results) Medical Service) Neutrophil Abs 5.12 Normal (applies MEDGEN 10(3)/uL to non-numeric (Jonny results) Medical Service) Lymphocyte Abs 2.26 Normal (applies MEDGEN 10(3)/uL to non-numeric (Jonny results) Medical Service) Monocyte Abs 0.65 Normal (applies MEDGEN 10(3)/uL to non-numeric ([facility]ante results) Medical Service) Eosinophil Abs 0.31 Normal (applies MEDGEN 10(3)/uL to non-numeric (Dante results) Medical Service) Neutrophil % 60.60 % Normal (applies MEDGEN to non-numeric ([facility]ante results) Medical Service) Lymphocyte % 27 % Normal (applies MEDGEN to non-numeric (Jonny results) Medical Service) Monocyte % 7.7 % Normal (applies MEDGEN to non-numeric (Jonny results) Medical Service) Eosinophil % 3.7 % Normal (applies MEDGEN to non-numeric (Dante results) Medical Service) Basophil % 0.7 % Normal (applies MEDGEN to non-numeric ([facility]ante results) Medical Service) Immature 0.50 % Normal (applies MEDGEN Granulocyte % to non-numeric (Jonny results) Medical Service) ID Date Data Source [id number] 05/09/2019 12:00:00 AM EDT MEDGEN ([facility] Medical Service) Name Value Range Interpretation Code Description Data Supporting Source(s) Document(s ) GLYCOMARK 11.73 Normal (applies to MEDGEN ug/mL non-numeric (Jonny results) Medical Service) ID Date Data Source [id number] 05/09/2019 12:00:00 AM EDT MEDGEN ([employer] [facility]) Name Value Range Interpretation Description Data Sup porting Code Source(s) Document(s ) Hemoglobin A1c 6.5 % Above high normal MEDGEN in Blood ([facility]) ID Date Data Source [id number] 05/09/2019 12:00:00 AM EDT MEDGEN ([facility]) Name Value Range Interpretation Description Data Sup porting Code Source(s) Document(s ) TSH,3RD 3.61 Normal (applies to MEDGEN GENERATION uIU/mL non-numeric (Jonny results) Medical Service) T4 TOTAL 5.3 ug/dL Normal (applies to MEDGEN THYROXINE non-numeric (Dante results) Medical Service) T3 TOTAL 96 ng/dL Normal (applies to MEDGEN non-numeric (Jonny results) Medical Service) ID Date Data Source [id number] 05/09/2019 12:00:00 AM EDT MEDGEN ([employer] [facility]) Name Value Range Interpretation Description Data Sup porting Code Source(s) Document(s ) VITAMIN D 23.44 Below low normal MEDGEN 25-HYDROXY ng/mL ([employer] [facility]) ID Date Data Source [id number] 05/09/2019 12:00:00 AM EDT MEDGEN ([employer] [facility]) Name Value Range Interpretation Description Data Sup porting Code Source(s) Document(s ) VITAMIN B12 400 pg/mL Normal (applies to MEDGEN non-numeric ([employer] results) Medical Service) ID Date Data Source [id number] 05/09/2019 12:00:00 AM EDT MEDGEN ([facility]) Name Value Range Interpretation Description Data Sup porting Code Source(s) Document(s ) MICROALBUMIN 0.3 Normal (applies MEDGEN URINE mg/dL to non-numeric ([employer] results) Medical Service) ID Date Data Source [id number] 05/09/2019 12:00:00 AM EDT MEDGEN ([employer] [facility]) Name Value Range Interpretation Description Data Sup porting Code Source(s) Document(s ) FOLATE 15.5 ng/mL Above high normal MEDGEN SERUM ([employer] [facility]) ID Date Data Source [id number] 05/09/2019 12:00:00 AM EDT MEDGEN ([facility] Medical [facility]) Name Value Range Interpretation Description Data Sup porting Code Source(s) Document(s ) Cholesterol 201 Above high normal MEDGEN [Moles/volume] mg/dL ([facility] in Pericardial Medical fluid Service) LDL CALCULATION 119.6 Normal (applies MEDGEN mg/dL to non-numeric ([facility]ante results) Medical Service) CHOL/HDL RATIO 3.53 Normal (applies MEDGEN ratio to non-numeric ([facility]ante results) Medical Service) VLDL CALCULATION 24.4 Normal (applies MEDGEN mg/dl to non-numeric (Dante results) Medical Service) HDL CHOLESTEROL 57 mg/dL Above high normal MEDGEN ([facility] Service) TRIGLYCERIDES 122 Normal (applies MEDGEN mg/dL to non-numeric ([facility]ante results) Medical Service) ID Date Data Source [id number] 05/09/2019 12:00:00 AM EDT MEDGEN ([facility] Medical [facility]) Name Value Range Interpretation Description Data Sup porting Code Source(s) Document(s ) GLUCOSE 105 Normal (applies MEDGEN NONFASTING,SERUM mg/dL to non-numeric ([facility] Medical Service) SODIUM, SERUM 139 Normal (applies MEDGEN mEq/L to non-numeric (Dante results) Medical Service) POTASSIUM, SERUM 4.8 Normal (applies MEDGEN mEq/L to non-numeric ([facility]ante results) Medical Service) Carbon dioxide 25 mEq/L Normal (applies MEDGEN [VFr/PPres] in to non-numeric ([facility] Gas delivery results) Medical system Service) CHLORIDE, SERUM 101 Normal (applies MEDGEN mEq/L to non-numeric ([facility]ante results) Medical Service) Anion gap in 17.8 Normal (applies MEDGEN Body fluid mEq/L to non-numeric ([facility]ante results) Medical Service) CREATININE, 0.90 Normal (applies MEDGEN SERUM mg/dL to non-numeric (Dante results) Medical Service) BLOOD UREA 19 mg/dL Normal (applies MEDGEN NITROGEN to non-numeric ([facility]ante results) Medical Service) CALCIUM, SERUM 9.5 Normal (applies MEDGEN mg/dL to non-numeric (Dante results) Medical Service) TOTAL PROTEIN 7.3 g/dL Normal (applies MEDGEN to non-numeric ([facility]ante results) Medical Service) Microalbumin 4.5 g/dL Normal (applies MEDGEN [Mass/time] in to non-numeric ([facility] Urine collected results) Medical for unspecified Service) duration Globulin 2.8 gldl Normal (applies MEDGEN [Mass/time] in to non-numeric ([facility]ante 24 hour Urine results) Medical Service) A/G RATIO 1.61 Normal (applies MEDGEN g/dl to non-numeric (Jonny results) Medical Service) BILIRUBIN, TOTAL 0.4 Normal (applies MEDGEN mg/dL to non-numeric (Dante results) Medical Service) ALKALINE 88 U/L Normal (applies MEDGEN PHOSPHATASE, ALP to non-numeric ([facility] y results) Medical Service) ALT (SGPT) 13 U/L Normal (applies MEDGEN to non-numeric (Dante results) Medical Service) EGFR NON AFR 65 Above high normal MEDGEN [place] mL/min/1 ([facility] Medical Service) AST 27 U/L Normal (applies MEDGEN to non-numeric (Dante results) Medical Service) EGFR AFR 79 Above high normal MEDGEN [place] mL/min/1 ([place] [address] Medical Service) ID Date Data Source [id number] 05/09/2019 12:00:00 AM EDT MEDGEN ([facility] Medical Service) Name Value Range Interpretation Description Data Sup porting Code Source(s) Document(s ) BILIRUBIN, TOTAL NEGATIVE Normal (applies MEDGEN to non-numeric (Dante results) Medical Service) GLUCOSE UA NEGATIVE Normal (applies MEDGEN to non-numeric (Dante results) Medical Service) Ketones NEGATIVE Normal (applies MEDGEN [Presence] in to non-numeric ([facility] Blood by Tablet results) Medical Service) Blood [Presence] NEGATIVE Normal (applies MEDGEN in Urine by to non-numeric ([facility]ante Visual results) Medical Service) Specific gravity 1.014 SG Normal (applies MEDGEN of Pericardial units to non-numeric (Dante fluid by results) Medical Refractometry Service) pH of Lower 5 Ph units Normal (applies MEDGEN respiratory to non-numeric (Dante specimen results) Medical Service) Protein NEGATIVE Normal (applies MEDGEN [Mass/volume] in to non-numeric ([facility] y Lower results) Medical respiratory Service) specimen Nitrite NEGATIVE Normal (applies MEDGEN [Presence] in to non-numeric ([facility] Urine by Test results) Medical strip Service) Urobilinogen 0-2.0 Normal (applies MEDGEN [Presence] in to non-numeric ([facility] Urine by results) Medical Automated test Service) strip Leukocyte NEGATIVE Normal (applies MEDGEN esterase to non-numeric (Jonny [Presence] in results) Medical Body fluid by Service) Automated test strip Color of YELLOW Normal (applies MEDGEN Peritoneal to non-numeric (Dante dialysis fluid results) Medical Service) TRANSPARENCY CLEAR Normal (applies MEDGEN to non-numeric (Dante results) Medical Service) ID Date Data Source [id number] 05/09/2019 12:00:00 AM EDT MEDGEN ([facility] Service) Name Value Range Interpretation Description Data Sup porting Code Source(s) Document(s ) WBC 8.4 Normal (applies MEDGEN 10(3)/uL to non-numeric (Dante results) Medical Service) RBC 4.4 Normal (applies MEDGEN 10(6)/uL to non-numeric (Jonny results) Medical Service) Hemoglobin 13.5 g/dL Normal (applies MEDGEN [Mass/volume] to non-numeric (Dante in Mixed venous results) Medical blood by Service) Oximetry Hematocrit 41.1 % Normal (applies MEDGEN [Pure volume to non-numeric (Dante fraction] of results) Medical Blood by Service) Automated count MCV 94.1 fL Normal (applies MEDGEN to non-numeric (Dante results) Medical Service) MCH 31 pg Normal (applies MEDGEN to non-numeric (Jonny results) Medical Service) MCHC 33 g/dL Normal (applies MEDGEN to non-numeric (Jonny results) Medical Service) RDWCV 13.4 % Normal (applies MEDGEN to non-numeric (Jonny results) Medical Service) RDWSD 45.3 fL Normal (applies MEDGEN to non-numeric (Dante results) Medical Service) Platelet Count 283 Normal (applies MEDGEN 10(3)/uL to non-numeric (Dante results) Medical Service) MPV 12.6 fL Normal (applies MEDGEN to non-numeric (Dante results) Medical Service) Neutrophil Abs 5.12 Normal (applies MEDGEN 10(3)/uL to non-numeric (Jonny results) Medical Service) Lymphocyte Abs 2.26 Normal (applies MEDGEN 10(3)/uL to non-numeric (Jonny results) Medical Service) Monocyte Abs 0.65 Normal (applies MEDGEN 10(3)/uL to non-numeric (Jonny results) Medical Service) Neutrophil % 60.60 % Normal (applies MEDGEN to non-numeric (Dante results) Medical Service) Eosinophil Abs 0.31 Normal (applies MEDGEN 10(3)/uL to non-numeric (Dante results) Medical Service) Lymphocyte % 27 % Normal (applies MEDGEN to non-numeric (Jonny results) Medical Service) Monocyte % 7.7 % Normal (applies MEDGEN to non-numeric (Dante results) Medical Service) Eosinophil % 3.7 % Normal (applies MEDGEN to non-numeric (Dante results) Medical Service) Basophil % 0.7 % Normal (applies MEDGEN to non-numeric (Jonny results) Medical Service) Immature 0.50 % Normal (applies MEDGEN Granulocyte % to non-numeric (Jonny results) Medical Service) ID Date Data Source [id number] 05/09/2019 12:00:00 AM EDT MEDGEN ([facility] Medical Service) Name Value Range Interpretation Code Description Data Supporting Source(s) Document(s ) GLYCOMARK 11.73 Normal (applies to MEDGEN ug/mL non-numeric (Dante results) Medical Service) ID Date Data Source [id number] 05/09/2019 12:00:00 AM EDT MEDGEN ([facility] Service) Name Value Range Interpretation Description Data Sup porting Code Source(s) Document(s ) Hemoglobin A1c 6.5 % Above high normal MEDGEN in Blood ([facility] Service) ID Date Data Source [id number] 05/09/2019 12:00:00 AM EDT MEDGEN ([facility] Service) Name Value Range Interpretation Description Data Sup porting Code Source(s) Document(s ) TSH,3RD 3.61 Normal (applies to MEDGEN GENERATION uIU/mL non-numeric (Dante results) Medical Service) T4 TOTAL 5.3 ug/dL Normal (applies to MEDGEN THYROXINE non-numeric (Jonny results) Medical Service) T3 TOTAL 96 ng/dL Normal (applies to MEDGEN non-numeric (Dante results) Medical Service) ID Date Data Source [id number] 05/09/2019 12:00:00 AM EDT MEDGEN ([facility] Service) Name Value Range Interpretation Description Data Sup porting Code Source(s) Document(s ) VITAMIN D 23.44 Below low normal MEDGEN 25-HYDROXY ng/mL ([facility] Service) ID Date Data Source [id number] 05/09/2019 12:00:00 AM EDT MEDGEN ([facility] Service) Name Value Range Interpretation Description Data Sup porting Code Source(s) Document(s ) VITAMIN B12 400 pg/mL Normal (applies to MEDGEN non-numeric (Dante results) Medical Service) ID Date Data Source [id number] 05/09/2019 12:00:00 AM EDT MEDGEN ([facility] Service) Name Value Range Interpretation Description Data Sup porting Code Source(s) Document(s ) MICROALBUMIN 0.3 Normal (applies MEDGEN URINE mg/dL to non-numeric (Dante results) Medical Service) ID Date Data Source [id number] 05/09/2019 12:00:00 AM EDT MEDGEN ([facility] Medical [facility]) Name Value Range Interpretation Description Data Sup porting Code Source(s) Document(s ) FOLATE 15.5 ng/mL Above high normal MEDGEN SERUM ([facility] Service) ID Date Data Source [id number] 05/09/2019 12:00:00 AM EDT MEDGEN ([facility] Medical [facility]) Name Value Range Interpretation Description Data Sup porting Code Source(s) Document(s ) Cholesterol 201 Above high normal MEDGEN [Moles/volume] mg/dL (Dante in Pericardial Medical fluid Service) LDL CALCULATION 119.6 Normal (applies MEDGEN mg/dL to non-numeric (Dante results) Medical Service) CHOL/HDL RATIO 3.53 Normal (applies MEDGEN ratio to non-numeric (Dante results) Medical Service) HDL CHOLESTEROL 57 mg/dL Above high normal MEDGEN ([facility] Medical Service) VLDL CALCULATION 24.4 Normal (applies MEDGEN mg/dl to non-numeric (Dante results) Medical Service) TRIGLYCERIDES 122 Normal (applies MEDGEN mg/dL to non-numeric (Dante results) Medical Service) ID Date Data Source [id number] 05/09/2019 12:00:00 AM EDT MEDGEN ([facility] Service) Name Value Range Interpretation Description Data Sup porting Code Source(s) Document(s ) GLUCOSE 105 Normal (applies MEDGEN NONFASTING,SERUM mg/dL to non-numeric ([facility] Medical Service) POTASSIUM, SERUM 4.8 Normal (applies MEDGEN mEq/L to non-numeric (Dante results) Medical Service) SODIUM, SERUM 139 Normal (applies MEDGEN mEq/L to non-numeric (Dante results) Medical Service) CHLORIDE, SERUM 101 Normal (applies MEDGEN mEq/L to non-numeric (Dante results) Medical Service) Anion gap in 17.8 Normal (applies MEDGEN Body fluid mEq/L to non-numeric (Dante results) Medical Service) Carbon dioxide 25 mEq/L Normal (applies MEDGEN [VFr/PPres] in to non-numeric ([facility] Gas delivery results) Medical system Service) BLOOD UREA 19 mg/dL Normal (applies MEDGEN NITROGEN to non-numeric (Dante results) Medical Service) CALCIUM, SERUM 9.5 Normal (applies MEDGEN mg/dL to non-numeric (Dante results) Medical Service) CREATININE, 0.90 Normal (applies MEDGEN SERUM mg/dL to non-numeric (Dante results) Medical Service) TOTAL PROTEIN 7.3 g/dL Normal (applies MEDGEN to non-numeric (Dante results) Medical Service) Globulin 2.8 gldl Normal (applies MEDGEN [Mass/time] in to non-numeric (Dante 24 hour Urine results) Medical Service) Microalbumin 4.5 g/dL Normal (applies MEDGEN [Mass/time] in to non-numeric (Dante Urine collected results) Medical for unspecified Service) duration A/G RATIO 1.61 Normal (applies MEDGEN g/dl to non-numeric (Dante results) Medical Service) ALKALINE 88 U/L Normal (applies MEDGEN PHOSPHATASE, ALP to non-numeric ([facility] Medical Service) BILIRUBIN, TOTAL 0.4 Normal (applies MEDGEN mg/dL to non-numeric (Dante results) Medical Service) ALT (SGPT) 13 U/L Normal (applies MEDGEN to non-numeric (Dante results) Medical Service) EGFR NON AFR 65 Above high normal MEDGEN [place] mL/min/1 (Dante .73m2 Medical Service) AST 27 U/L Normal (applies MEDGEN to non-numeric (Dante results) Medical Service) EGFR AFR 79 Above high normal MEDGEN [place] mL/min/1 (Dante .73m2 Medical Service) ID Date Data Source [id number] 05/09/2019 12:00:00 AM EDT [place] ([facility] [employer] [facility]) Name Value Range Interpretation Description Data Sup porting Code Source(s) Document(s ) BILIRUBIN, TOTAL NEGATIVE Normal (applies MEDGEN to non-numeric (Dante results) Medical Service) GLUCOSE UA NEGATIVE Normal (applies MEDGEN to non-numeric (Dante results) Medical Service) Ketones NEGATIVE Normal (applies MEDGEN [Presence] in to non-numeric ([facility] Blood by Tablet results) Medical Service) Blood [Presence] NEGATIVE Normal (applies MEDGEN in Urine by to non-numeric (Jonny Visual results) Medical Service) Specific gravity 1.014 SG Normal (applies MEDGEN of Pericardial units to non-numeric (Dante fluid by results) Medical Refractometry Service) pH of Lower 5 Ph units Normal (applies MEDGEN respiratory to non-numeric (Jonny specimen results) Medical Service) Protein NEGATIVE Normal (applies MEDGEN [Mass/volume] in to non-numeric ([place] [facility] Lower results) Medical respiratory Service) specimen Urobilinogen 0-2.0 Normal (applies MEDGEN [Presence] in to non-numeric ([facility]ante Urine by results) Medical Automated test Service) strip Nitrite NEGATIVE Normal (applies MEDGEN [Presence] in to non-numeric (Jonny Urine by Test results) Medical strip Service) Color of YELLOW Normal (applies MEDGEN Peritoneal to non-numeric (Dante dialysis fluid results) Medical Service) Leukocyte NEGATIVE Normal (applies MEDGEN esterase to non-numeric (Jonny [Presence] in results) Medical Body fluid by Service) Automated test strip TRANSPARENCY CLEAR Normal (applies MEDGEN to non-numeric (Jonny results) Medical Service) ID Date Data Source [id number] 05/09/2019 12:00:00 AM EDT MEDGEN ([facility] Medical Service) Name Value Range Interpretation Description Data Sup porting Code Source(s) Document(s ) RBC 4.4 Normal (applies MEDGEN 10(6)/uL to non-numeric (Dante results) Medical Service) WBC 8.4 Normal (applies MEDGEN 10(3)/uL to non-numeric (Dante results) Medical Service) Hemoglobin 13.5 g/dL Normal (applies MEDGEN [Mass/volume] to non-numeric (Dante in Mixed venous results) Medical blood by Service) Oximetry MCV 94.1 fL Normal (applies MEDGEN to non-numeric (Dante results) Medical Service) Hematocrit 41.1 % Normal (applies MEDGEN [Pure volume to non-numeric (Dante fraction] of results) Medical Blood by Service) Automated count MCH 31 pg Normal (applies MEDGEN to non-numeric (Dante results) Medical Service) MCHC 33 g/dL Normal (applies MEDGEN to non-numeric (Jonny results) Medical Service) RDWSD 45.3 fL Normal (applies MEDGEN to non-numeric (Dante results) Medical Service) RDWCV 13.4 % Normal (applies MEDGEN to non-numeric (Dante results) Medical Service) Platelet Count 283 Normal (applies MEDGEN 10(3)/uL to non-numeric (Dante results) Medical Service) MPV 12.6 fL Normal (applies MEDGEN to non-numeric (Jonny results) Medical Service) Neutrophil Abs 5.12 Normal (applies MEDGEN 10(3)/uL to non-numeric (Dante results) Medical Service) Lymphocyte Abs 2.26 Normal (applies MEDGEN 10(3)/uL to non-numeric (Dante results) Medical Service) Monocyte Abs 0.65 Normal (applies MEDGEN 10(3)/uL to non-numeric (Dante results) Medical Service) Eosinophil Abs 0.31 Normal (applies MEDGEN 10(3)/uL to non-numeric (Dante results) Medical Service) Lymphocyte % 27 % Normal (applies MEDGEN to non-numeric (Jonny results) Medical Service) Neutrophil % 60.60 % Normal (applies MEDGEN to non-numeric (Dante results) Medical Service) Monocyte % 7.7 % Normal (applies MEDGEN to non-numeric (Dante results) Medical Service) Basophil % 0.7 % Normal (applies MEDGEN to non-numeric (Dante results) Medical Service) Eosinophil % 3.7 % Normal (applies MEDGEN to non-numeric (Dante results) Medical Service) Immature 0.50 % Normal (applies MEDGEN Granulocyte % to non-numeric (Jonny results) Medical Service) ID Date Data Source [id number] 05/09/2019 12:00:00 AM EDT MED[facility] ([facility]) Name Value Range Interpretation Code Description Data Supporting Source(s) Document(s ) GLYCOMARK 11.73 Normal (applies to MEDGEN ug/mL non-numeric (Jonny results) Medical Service) ID Date Data Source [id number] 05/09/2019 12:00:00 AM EDT MEDGEN ([facility]) Name Value Range Interpretation Description Data Sup porting Code Source(s) Document(s ) Hemoglobin A1c 6.5 % Above high normal MEDGEN in Blood (Dante Medical Service) ID Date Data Source [id number] 09/09/2018 12:00:00 AM EST MED[facility] ([facility]) Name Value Range Interpretation Description Data Sup porting Code Source(s) Document(s ) VITAMIN 31 ng/mL Normal (applies to MEDGEN D,25-OH,TOTA non-numeric (Dante L,IA results) Medical Service) ID Date Data Source [id number] 09/09/2018 12:00:00 AM EST MEDGEN ([facility]) Name Value Range Interpretation Description Data Sup porting Code Source(s) Document(s ) Hemoglobin A1c 6.6 % of Above high normal MEDGEN in Blood total Hgb (Dante Medical [facility]) ID Date Data Source [id number] 09/09/2018 12:00:00 AM EST MEDGEN ([facility] [employer] [facility]) Name Value Range Interpretation Description Data Sup porting Code Source(s) Document(s ) FOLATE,SERUM 15.0 Normal (applies to MEDGEN ng/mL non-numeric (Dante results) Medical Service) VITAMIN B12 440 pg/mL Normal (applies to MEDGEN non-numeric (Dante results) Medical Service) ID Date Data Source [id number] 09/09/2018 12:00:00 AM EST MEDGEN ([facility]) Name Value Range Interpretation Description Data Sup porting Code Source(s) Document(s ) Color of Yellow Normal (applies MEDGEN Peritoneal to non-numeric (Dante dialysis fluid results) Medical Service) Appearance of Clear Normal (applies MEDGEN Abdomen to non-numeric (Jonny results) Medical Service) Specific gravity 1.023 Normal (applies MEDGEN of Pericardial to non-numeric (Dante fluid by results) Medical Refractometry Service) pH of Lower 5.0 Normal (applies MEDGEN respiratory to non-numeric (Dante specimen results) Medical Service) Glucose Negative Normal (applies [facility]GEN [Mass/volume] [facility] to [facility] Medical for unspecified Service) duration Bilirubin Negative Normal (applies MEDGEN [Presence] in to non-numeric (Dante Peritoneal fluid results) Medical Service) Ketones Negative Normal (applies MEDGEN [Presence] in to non-numeric (Dante Blood by Tablet results) Medical Service) OCCULT BLOOD Negative Normal (applies MEDGEN to non-numeric (Jonny results) Medical Service) Protein Negative Normal (applies MEDGEN [Mass/volume] in to non-numeric ([place] Lower results) Medical respiratory Service) specimen Nitrite Negative Normal (applies MEDGEN [Presence] in to non-numeric (Jonny Urine by Test results) Medical strip Service) Leukocyte Negative Normal (applies MEDGEN esterase to non-numeric (Jonny [Presence] in results) Medical Body fluid by Service) Automated test strip ID Date Data Source [id number] 09/09/2018 12:00:00 AM EST MEDGEN ([facility]) Name Value Range Interpretation Description Data Sup porting Code Source(s) Document(s ) WBC 7.5 Normal (applies MEDGEN Thous/mc to non-numeric (Dante L results) Medical Service) RBC 4.74 Normal (applies MEDGEN Mill/mcL to non-numeric (Dante results) Medical Service) Hematocrit [Pure 44.2 % Normal (applies MEDGEN volume fraction] to non-numeric ([place] of Blood by results) Medical Automated count Service) Hemoglobin 14.3 Normal (applies MEDGEN [Mass/volume] in g/dL to non-numeric ([place] Mixed venous results) Medical blood by Service) Oximetry MCV 93.2 fL Normal (applies MEDGEN to non-numeric (Dante results) Medical Service) MCH 30.0 pg Normal (applies MEDGEN to non-numeric (Jonny results) Medical Service) MCHC 32.2 Normal (applies MEDGEN g/dL to non-numeric (Dante results) Medical Service) RDW 13.9 % Normal (applies MEDGEN to non-numeric (Jonny results) Medical Service) PLATELET COUNT 302 Normal (applies MEDGEN Thous/mc to non-numeric (Jonny L results) Medical Service) MPV 10.8 fL Normal (applies MEDGEN to non-numeric (Dante results) Medical Service) TOTAL 32.2 % Normal (applies MEDGEN LYMPHOCYTES,% to non-numeric (Dante results) Medical Service) TOTAL 53.7 % Normal (applies MEDGEN NEUTROPHILS,% to non-numeric (Dante results) Medical Service) MONOCYTES,% 7.9 % Normal (applies MEDGEN to non-numeric (Dante results) Medical Service) EOSINOPHILS,% 5.6 % Normal (applies MEDGEN to non-numeric (Dante results) Medical Service) BASOPHILS,% 0.6 % Normal (applies MEDGEN to non-numeric (Dante results) Medical Service) NEUTROPHILS,ABSO 4028 Normal (applies MEDGEN LUTE Cells/mc to non-numeric (Dante L results) Medical Service) LYMPHOCYTES,ABSO 2415 Normal (applies MEDGEN LUTE Cells/mc to non-numeric (Jonny L results) Medical Service) MONOCYTES,ABSOLU 593 Normal (applies MEDGEN TE Cells/mc to non-numeric (Jonny L results) Medical Service) EOSINOPHILS,ABSO 420 Normal (applies MEDGEN LUTE Cells/mc to non-numeric (Jonny L results) Medical Service) BASOPHILS,ABSOLU 45 Normal (applies MEDGEN TE Cells/mc to non-numeric (Dante L results) Medical Service) DIFFERENTIAL Normal (applies MEDGEN to non-numeric (Dante results) Medical Service) ID Date Data Source [id number] 09/09/2018 12:00:00 AM EST MEDGEN ([facility] Service) Name Value Range Interpretation Description Data Sup porting Code Source(s) Document(s ) T4 6.9 mcg/dL Normal (applies to MEDGEN (THYROXINE) non-numeric (Dante , TOTAL results) Medical Service) T3 UPTAKE 31 % Normal (applies to MEDGEN non-numeric (Jonny results) Medical Service) FREE T4 2.1 Normal (applies to MEDGEN INDEX (T7) non-numeric (Dante results) Medical Service) ID Date Data Source [id number] 09/09/2018 12:00:00 AM EST MEDGEN ([facility]) Name Value Range Interpretation Description Data Sup porting Code Source(s) Document(s ) CHOLESTEROL,TOTA 189 Normal (applies MEDGEN L mg/dL to non-numeric (Dante results) Medical Service) HDL CHOLESTEROL 57 mg/dL Normal (applies MEDGEN to non-numeric (Jonny results) Medical Service) LDL CHOL, 110 Above high normal MEDGEN CALCULATED mg/dL (Dante Medical Service) CHOLESTEROL/HDL 3.3 calc Normal (applies MEDGEN RATIO to non-numeric (Dante results) Medical Service) TRIGLYCERIDES 111 Normal (applies MEDGEN mg/dL to non-numeric (Dante results) Medical Service) NON HDL 132 Above high normal MEDGEN CHOLESTEROL mg/dL (Dante (calc) Medical Service) ID Date Data Source [id number] 09/09/2018 12:00:00 AM EST MEDGEN ([facility]) Name Value Range Interpretation Description Data Sup porting Code Source(s) Document(s ) MICROALBUMIN 0.9 Normal (applies MEDGEN mg/dL to non-numeric (Dante results) Medical Service) MICROALBUMIN:CR 5 mcg/mg Normal (applies MEDGEN RATIO Creat to non-numeric (Dante results) Medical Service) CREATININE, 167 Normal (applies MEDGEN RANDOM URINE mg/dL to non-numeric (Dante results) Medical Service) ID Date Data Source [id number] 09/09/2018 12:00:00 AM EST MEDGEN ([facility]) Name Value Range Interpretation Description Data Sup porting Code Source(s) Document(s ) Glucose 101 Normal (applies MEDGEN [Mass/volume] in mg/dL to non-numeric ([place] Urine collected results) Medical for unspecified Service) duration Sodium 140 Normal (applies MEDGEN [Moles/volume] mmol/L to non-numeric (Jonny in Serum, Plasma results) Medical or Blood Service) Potassium 4.9 Normal (applies MEDGEN [Mass/volume] in mmol/L to non-numeric ([place] Blood results) Medical Service) Chloride 103 Normal (applies MEDGEN [Moles/volume] mmol/L to non-numeric (Jonny in Serum, Plasma results) Medical or Blood Service) Urea nitrogen 16 mg/dL Normal (applies MEDGEN [Moles/volume] to non-numeric (Dante in Blood results) Medical Service) Carbon dioxide 26 Normal (applies MEDGEN [VFr/PPres] in mmol/L to non-numeric (Jonny Gas delivery results) Medical system Service) Creatinine 0.83 Normal (applies MEDGEN [Interpretation] mg/dL to non-numeric ([place] in Urine results) Medical Service) BUN/CREATININE NOTE Normal (applies MEDGEN RATIO to non-numeric (Dante results) Medical Service) PROTEIN, TOTAL 7.2 g/dL Normal (applies MEDGEN to non-numeric (Dante results) Medical Service) Calcium 9.6 Normal (applies MEDGEN [Moles/volume] mg/dL to non-numeric (Dante in Urine results) Medical collected for Service) unspecified duration Microalbumin 4.3 g/dL Normal (applies MEDGEN [Mass/time] in to non-numeric (Dante Urine collected results) Medical for unspecified Service) duration Globulin 2.9 g/dL Normal (applies MEDGEN [Mass/time] in (calc) to non-numeric (Dante 24 hour Urine results) Medical Service) ALBUMIN/GLOBULIN 1.5 Normal (applies MEDGEN RATIO (calc) to non-numeric (Dante results) Medical Service) BILIRUBIN,TOTAL 0.3 Normal (applies MEDGEN mg/dL to non-numeric (Jonny results) Medical Service) Alkaline 78 U/L Normal (applies MEDGEN phosphatase to non-numeric (Dante [Enzymatic results) Medical activity/volume] Service) in Serum, Plasma or Blood ALT 21 U/L Normal (applies MEDGEN to non-numeric (Dante results) Medical Service) AST 28 U/L Normal (applies MEDGEN to non-numeric (Dante results) Medical Service) EGFR NON AFR 71 Normal (applies MEDGEN [place] mL/min/1 to non-numeric (Jonny .73m2 results) Medical Service) EGFR 82 Normal (applies MEDGEN [place] mL/min/1 to non-numeric (Jonny .73m2 results) Medical Service) ID Date Data Source [id number] 09/09/2018 12:00:00 AM EST MEDGEN ([facility]) Name Value Range Interpretation Description Data Sup porting Code Source(s) Document(s ) VITAMIN 31 ng/mL Normal (applies to MEDGEN D,25-OH,TOTA non-numeric (Dante L,IA results) Medical Service) ID Date Data Source [id number] 09/09/2018 12:00:00 AM EST MEDGEN ([facility]) Name Value Range Interpretation Description Data Sup porting Code Source(s) Document(s ) Hemoglobin A1c 6.6 % of Above high normal MEDGEN in Blood total Hgb ([facility] Medical Service) ID Date Data Source [id number] 09/09/2018 12:00:00 AM EST MEDGEN ([facility]) Name Value Range Interpretation Description Data Sup porting Code Source(s) Document(s ) VITAMIN B12 440 pg/mL Normal (applies to MEDGEN non-numeric (Dante results) Medical Service) FOLATE,SERUM 15.0 Normal (applies to MEDGEN ng/mL non-numeric (Dante results) Medical Service) ID Date Data Source [id number] 09/09/2018 12:00:00 AM EST MEDGEN ([facility]) Name Value Range Interpretation Description Data Sup porting Code Source(s) Document(s ) Color of Yellow Normal (applies MEDGEN Peritoneal to non-numeric (Jonny dialysis fluid results) Medical Service) Specific gravity 1.023 Normal (applies MEDGEN of Pericardial to non-numeric (Dante fluid by results) Medical Refractometry Service) Appearance of Clear Normal (applies MEDGEN Abdomen to non-numeric (Dante results) Medical Service) pH of Lower 5.0 Normal (applies MEDGEN respiratory to non-numeric (Dante specimen results) Medical Service) Bilirubin Negative Normal (applies MEDGEN [Presence] in to non-numeric (Jonny Peritoneal fluid results) Medical Service) Glucose Negative Normal (applies MEDGEN [Mass/volume] in to non-numeric ([facility] Medical for unspecified Service) duration Ketones Negative Normal (applies MEDGEN [Presence] in to non-numeric (Dante Blood by Tablet results) Medical Service) OCCULT BLOOD Negative Normal (applies MEDGEN to non-numeric (Dante results) Medical Service) Nitrite Negative Normal (applies MEDGEN [Presence] in to non-numeric (Dante Urine by Test results) Medical strip Service) Protein Negative Normal (applies MEDGEN [Mass/volume] in to non-numeric ([facility]) Medical respiratory Service) specimen Leukocyte Negative Normal (applies MEDGEN esterase to non-numeric (Dante [Presence] in results) Medical Body fluid by Service) Automated test strip ID Date Data Source [id number] 09/09/2018 12:00:00 AM EST MEDGEN ([facility] Service) Name Value Range Interpretation Description Data Sup porting Code Source(s) Document(s ) WBC 7.5 Normal (applies MEDGEN Thous/mc to non-numeric (Dante L results) Medical Service) RBC 4.74 Normal (applies MEDGEN Mill/mcL to non-numeric (Dante results) Medical Service) Hemoglobin 14.3 Normal (applies MEDGEN [Mass/volume] in g/dL to non-numeric ([facility]) Medical blood by Service) Oximetry MCV 93.2 fL Normal (applies MEDGEN to non-numeric (Jonny results) Medical Service) Hematocrit [Pure 44.2 % Normal (applies MEDGEN volume fraction] to non-numeric (wa y of Blood by results) Medical Automated count Service) MCH 30.0 pg Normal (applies MEDGEN to non-numeric (Jonny results) Medical Service) MCHC 32.2 Normal (applies MEDGEN g/dL to non-numeric (Jonny results) Medical Service) PLATELET COUNT 302 Normal (applies MEDGEN Thous/mc to non-numeric (Jonny L results) Medical Service) RDW 13.9 % Normal (applies MEDGEN to non-numeric (Dante results) Medical Service) MPV 10.8 fL Normal (applies MEDGEN to non-numeric (Jonny results) Medical Service) TOTAL 53.7 % Normal (applies MEDGEN NEUTROPHILS,% to non-numeric (Jonny results) Medical Service) TOTAL 32.2 % Normal (applies MEDGEN LYMPHOCYTES,% to non-numeric (Dante results) Medical Service) MONOCYTES,% 7.9 % Normal (applies MEDGEN to non-numeric (Dante results) Medical Service) EOSINOPHILS,% 5.6 % Normal (applies MEDGEN to non-numeric (Jonny results) Medical Service) BASOPHILS,% 0.6 % Normal (applies MEDGEN to non-numeric (Jonny results) Medical Service) LYMPHOCYTES,ABSO 2415 Normal (applies MEDGEN LUTE Cells/mc to non-numeric (Jonny L results) Medical Service) NEUTROPHILS,ABSO 4028 Normal (applies MEDGEN LUTE Cells/mc to non-numeric (Dante L results) Medical Service) MONOCYTES,ABSOLU 593 Normal (applies MEDGEN TE Cells/mc to non-numeric (Dante L results) Medical Service) EOSINOPHILS,ABSO 420 Normal (applies MEDGEN LUTE Cells/mc to non-numeric (Jonny L results) Medical Service) BASOPHILS,ABSOLU 45 Normal (applies MEDGEN TE Cells/mc to non-numeric (Jonny L results) Medical Service) DIFFERENTIAL Normal (applies MEDGEN to non-numeric (Jonny results) Medical Service) ID Date Data Source [id number] 09/09/2018 12:00:00 AM EST MEDGEN ([facility]) Name Value Range Interpretation Description Data Sup porting Code Source(s) Document(s ) T4 6.9 mcg/dL Normal (applies to MEDGEN (THYROXINE) non-numeric (Dante , TOTAL results) Medical Service) T3 UPTAKE 31 % Normal (applies to MEDGEN non-numeric (Jonny results) Medical Service) FREE T4 2.1 Normal (applies to MEDGEN INDEX (T7) non-numeric (Jonny results) Medical Service) ID Date Data Source [id number] 09/09/2018 12:00:00 AM EST [facility] ([facility]) Name Value Range Interpretation Description Data Sup porting Code Source(s) Document(s ) CHOLESTEROL,TOTA 189 Normal (applies MEDGEN L mg/dL to non-numeric (Jonny results) Medical Service) HDL CHOLESTEROL 57 mg/dL Normal (applies MEDGEN to non-numeric (Jonny results) Medical Service) CHOLESTEROL/HDL 3.3 calc Normal (applies MEDGEN RATIO to non-numeric (Dante results) Medical Service) LDL CHOL, 110 Above high normal MEDGEN CALCULATED mg/dL (Dante Medical Service) TRIGLYCERIDES 111 Normal (applies MEDGEN mg/dL to non-numeric (Jonny results) Medical Service) NON HDL 132 Above high normal MEDGEN CHOLESTEROL mg/dL (Dante (calc) Medical Service) ID Date Data Source [id number] 09/09/2018 12:00:00 AM EST MEDGEN ([employer]) Name Value Range Interpretation Description Data Sup porting Code Source(s) Document(s ) MICROALBUMIN 0.9 Normal (applies MEDGEN mg/dL to non-numeric (Jonny results) Medical Service) MICROALBUMIN:CR 5 mcg/mg Normal (applies MEDGEN RATIO Creat to non-numeric (Dante results) Medical Service) CREATININE, 167 Normal (applies MEDGEN RANDOM URINE mg/dL to non-numeric (Jonny results) Medical Service) ID Date Data Source [id number] 09/09/2018 12:00:00 AM EST [facility]GEN ([facility]) Name Value Range Interpretation Description Data Sup porting Code Source(s) Document(s ) Sodium 140 Normal (applies MEDGEN [Moles/volume] mmol/L to non-numeric (Dante in Serum, Plasma results) Medical or Blood Service) Glucose 101 Normal (applies MEDGEN [Mass/volume] in mg/dL to non-numeric ([place] [facility] Urine collected results) Medical for unspecified Service) duration Potassium 4.9 Normal (applies MEDGEN [Mass/volume] in mmol/L to non-numeric ([place] [facility] Blood results) Medical Service) Chloride 103 Normal (applies MEDGEN [Moles/volume] mmol/L to non-numeric (Jonny in Serum, Plasma results) Medical or Blood Service) Carbon dioxide 26 Normal (applies MEDGEN [VFr/PPres] in mmol/L to non-numeric (Jonny Gas delivery results) Medical system Service) Urea nitrogen 16 mg/dL Normal (applies MEDGEN [Moles/volume] to non-numeric (Dante in Blood results) Medical Service) Creatinine 0.83 Normal (applies MEDGEN [Interpretation] mg/dL to non-numeric ([place] in Urine results) Medical Service) BUN/CREATININE NOTE Normal (applies MEDGEN RATIO to non-numeric (Dante results) Medical Service) Calcium 9.6 Normal (applies MEDGEN [Moles/volume] mg/dL to non-numeric (Dante in Urine results) Medical collected for Service) unspecified duration PROTEIN, TOTAL 7.2 g/dL Normal (applies MEDGEN to non-numeric (Dante results) Medical Service) Microalbumin 4.3 g/dL Normal (applies MEDGEN [Mass/time] in to non-numeric (Dante Urine collected results) Medical for unspecified Service) duration Globulin 2.9 g/dL Normal (applies MEDGEN [Mass/time] in (calc) to non-numeric (Dante 24 hour Urine results) Medical Service) ALBUMIN/GLOBULIN 1.5 Normal (applies MEDGEN RATIO (calc) to non-numeric (Jonny results) Medical Service) Alkaline 78 U/L Normal (applies MEDGEN phosphatase to non-numeric (Dante [Enzymatic results) Medical activity/volume] Service) in Serum, Plasma or Blood BILIRUBIN,TOTAL 0.3 Normal (applies MEDGEN mg/dL to non-numeric (Jonny results) Medical Service) AST 28 U/L Normal (applies MEDGEN to non-numeric (Jonny results) Medical Service) ALT 21 U/L Normal (applies MEDGEN to non-numeric (Dante results) Medical Service) EGFR 82 Normal (applies MEDGEN [place] mL/min/1 to non-numeric (Jonny .73m2 results) Medical Service) EGFR NON AFR 71 Normal (applies MEDGEN [place] mL/min/1 to non-numeric (Dante .73m2 results) Medical Service) ID Date Data Source [id number] 09/09/2018 12:00:00 AM EST MEDGEN ([facility]) Name Value Range Interpretation Description Data Sup porting Code Source(s) Document(s ) VITAMIN 31 ng/mL Normal (applies to MEDGEN D,25-OH,TOTA non-numeric (Dante L,IA results) Medical Service) ID Date Data Source [id number] 09/09/2018 12:00:00 AM EST MEDGEN ([facility]) Name Value Range Interpretation Description Data Sup porting Code Source(s) Document(s ) Hemoglobin A1c 6.6 % of Above high normal MEDGEN in Blood total Hgb (Dante Medical Service) ID Date Data Source [id number] 09/09/2018 12:00:00 AM EST MEDGEN ([facility]) Name Value Range Interpretation Description Data Sup porting Code Source(s) Document(s ) VITAMIN B12 440 pg/mL Normal (applies to MEDGEN non-numeric (Dante results) Medical Service) FOLATE,SERUM 15.0 Normal (applies to MEDGEN ng/mL non-numeric (Dante results) Medical Service) ID Date Data Source [id number] 09/09/2018 12:00:00 AM EST [facility]GEN ([facility] [employer] [facility]) Name Value Range Interpretation Description Data Sup porting Code Source(s) Document(s ) Color of Yellow Normal (applies MEDGEN Peritoneal to non-numeric (Dante dialysis fluid results) Medical Service) Appearance of Clear Normal (applies MEDGEN Abdomen to non-numeric (Dante results) Medical Service) Specific gravity 1.023 Normal (applies MEDGEN of Pericardial to non-numeric (Dante fluid by results) Medical Refractometry Service) pH of Lower 5.0 Normal (applies MEDGEN respiratory to non-numeric (Dante specimen results) Medical Service) Glucose Negative Normal (applies MEDGEN [Mass/volume] in to non-numeric ([place] Urine collected results) Medical for unspecified Service) duration Ketones Negative Normal (applies MEDGEN [Presence] in to non-numeric (Jonny Blood by Tablet results) Medical Service) Bilirubin Negative Normal (applies MEDGEN [Presence] in to non-numeric (Dante Peritoneal fluid results) Medical Service) OCCULT BLOOD Negative Normal (applies MEDGEN to non-numeric (Jonny results) Medical Service) Protein Negative Normal (applies MEDGEN [Mass/volume] in to non-numeric ([place] Lower results) Medical respiratory Service) specimen Nitrite Negative Normal (applies MEDGEN [Presence] in to non-numeric (Dante Urine by Test results) Medical strip Service) Leukocyte Negative Normal (applies MEDGEN esterase to non-numeric (Dante [Presence] in results) Medical Body fluid by Service) Automated test strip ID Date Data Source [id number] 09/09/2018 12:00:00 AM EST MEDGEN ([facility] Service) Name Value Range Interpretation Description Data Sup porting Code Source(s) Document(s ) WBC 7.5 Normal (applies MEDGEN Thous/mc to non-numeric (Jonny L results) Medical Service) RBC 4.74 Normal (applies MEDGEN Mill/mcL to non-numeric (Jonny results) Medical Service) Hemoglobin 14.3 Normal (applies MEDGEN [Mass/volume] in g/dL to non-numeric ([facility] Medical blood by Service) Oximetry Hematocrit [Pure 44.2 % Normal (applies MEDGEN volume fraction] to non-numeric ([place] of Blood by results) Medical Automated count Service) MCV 93.2 fL Normal (applies MEDGEN to non-numeric (Dante results) Medical Service) MCH 30.0 pg Normal (applies MEDGEN to non-numeric (Dante results) Medical Service) MCHC 32.2 Normal (applies MEDGEN g/dL to non-numeric (Dante results) Medical Service) RDW 13.9 % Normal (applies MEDGEN to non-numeric (Dante results) Medical Service) PLATELET COUNT 302 Normal (applies MEDGEN Thous/mc to non-numeric (Jonny L results) Medical Service) TOTAL 53.7 % Normal (applies MEDGEN NEUTROPHILS,% to non-numeric (Dante results) Medical Service) MPV 10.8 fL Normal (applies MEDGEN to non-numeric (Jonny results) Medical Service) TOTAL 32.2 % Normal (applies MEDGEN LYMPHOCYTES,% to non-numeric (Dante results) Medical Service) MONOCYTES,% 7.9 % Normal (applies MEDGEN to non-numeric (Jonny results) Medical Service) EOSINOPHILS,% 5.6 % Normal (applies MEDGEN to non-numeric (Jonny results) Medical Service) BASOPHILS,% 0.6 % Normal (applies MEDGEN to non-numeric (Dante results) Medical Service) NEUTROPHILS,ABSO 4028 Normal (applies [facility] LUTE Cells/mc to non-numeric (Jonny L results) Medical Service) LYMPHOCYTES,ABSO 2415 Normal (applies [facility] LUTE Cells/mc to non-numeric (Dante L results) Medical Service) MONOCYTES,ABSOLU 593 Normal (applies [facility] TE Cells/mc to non-numeric (Jonny L results) Medical Service) EOSINOPHILS,ABSO 420 Normal (applies [facility] LUTE Cells/mc to non-numeric (Jonny L results) Medical Service) BASOPHILS,ABSOLU 45 Normal (applies [facility] TE Cells/mc to non-numeric (Jonny L results) Medical Service) DIFFERENTIAL Normal (applies [facility] to non-numeric (Dante results) Medical Service) ID Date Data Source [id number] 09/09/2018 12:00:00 AM EST [facility] ([facility]) Name Value Range Interpretation Description Data Sup porting Code Source(s) Document(s ) T4 6.9 mcg/dL Normal (applies to [facility] (THYROXINE) non-numeric (Jonny , TOTAL results) Medical Service) FREE T4 2.1 Normal (applies to [facility] INDEX (T7) non-numeric (Jonny results) Medical Service) T3 UPTAKE 31 % Normal (applies to [facility] non-numeric (Jonny results) Medical Service) ID Date Data Source [id number] 09/09/2018 12:00:00 AM EST [facility] ([facility]) Name Value Range Interpretation Description Data Sup porting Code Source(s) Document(s ) CHOLESTEROL,TOTA 189 Normal (applies [facility] L mg/dL to non-numeric (Jonny results) Medical Service) HDL CHOLESTEROL 57 mg/dL Normal (applies [facility] to non-numeric (Jonny results) Medical Service) CHOLESTEROL/HDL 3.3 calc Normal (applies [facility] RATIO to non-numeric (Dante results) Medical Service) LDL CHOL, 110 Above high normal [facility] CALCULATED mg/dL (Jonny Medical Service) TRIGLYCERIDES 111 Normal (applies [facility] mg/dL to non-numeric (Dante results) Medical Service) NON HDL 132 Above high normal [facility] CHOLESTEROL mg/dL (Dante (calc) Medical Service) ID Date Data Source [id number] 09/09/2018 12:00:00 AM EST [facility] ([facility]) Name Value Range Interpretation Description Data Sup porting Code Source(s) Document(s ) MICROALBUMIN 0.9 Normal (applies [facility] mg/dL to non-numeric (Jonny results) Medical Service) MICROALBUMIN:CR 5 mcg/mg Normal (applies [facility] RATIO Creat to non-numeric (Jonny results) Medical Service) CREATININE, 167 Normal (applies [facility] RANDOM URINE mg/dL to non-numeric (Dante results) Medical Service) ID Date Data Source [id number] 09/09/2018 12:00:00 AM EST [facility] ([facility]) Name Value Range Interpretation Description Data Sup porting Code Source(s) Document(s ) Glucose 101 Normal (applies [facility] [Mass/volume] in mg/dL to non-numeric ([place] [facility] Urine collected results) Medical for unspecified Service) duration Sodium 140 Normal (applies [facility]GEN [Moles/volume] mmol/L to non-numeric (Jonny in Serum, Plasma results) Medical or Blood Service) Potassium 4.9 Normal (applies [facility] [Mass/volume] in mmol/L to non-numeric ([place] [facility] Blood results) Medical Service) Chloride 103 Normal (applies [facility]GEN [Moles/volume] mmol/L to non-numeric (Jonny in Serum, Plasma results) Medical or Blood Service) Urea nitrogen 16 mg/dL Normal (applies [facility] [Moles/volume] to non-numeric (Dante in Blood results) Medical Service) Carbon dioxide 26 Normal (applies [facility] [VFr/PPres] in mmol/L to non-numeric (Dante Gas delivery results) Medical system Service) Creatinine 0.83 Normal (applies [facility] [Interpretation] mg/dL to non-numeric ([place] in Urine results) Medical Service) BUN/CREATININE NOTE Normal (applies [facility] RATIO to non-numeric (Dante results) Medical Service) Calcium 9.6 Normal (applies [facility] [Moles/volume] mg/dL to non-numeric (Jonny in Urine results) Medical collected for Service) unspecified duration PROTEIN, TOTAL 7.2 g/dL Normal (applies [facility] to non-numeric (Dante results) Medical Service) Microalbumin 4.3 g/dL Normal (applies [facility] [Mass/time] in to non-numeric (Jonny Urine collected results) Medical for unspecified Service) duration Globulin 2.9 g/dL Normal (applies [facility] [Mass/time] in (calc) to non-numeric (Jonny 24 hour Urine results) Medical Service) ALBUMIN/GLOBULIN 1.5 Normal (applies [facility] RATIO (calc) to non-numeric (Jonny results) Medical Service) BILIRUBIN,TOTAL 0.3 Normal (applies [facility] mg/dL to non-numeric (Jonny results) Medical Service) Alkaline 78 U/L Normal (applies MEDGEN phosphatase to non-numeric (Dante [Enzymatic results) Medical activity/volume] Service) in Serum, Plasma or Blood ALT 21 U/L Normal (applies [facility] to non-numeric (Jonny results) Medical Service) AST 28 U/L Normal (applies [facility] to non-numeric (Jonny results) Medical Service) EGFR NON AFR 71 Normal (applies [facility] [place] mL/min/1 to non-numeric (Dante .73m2 results) Medical Service) EGFR 82 Normal (applies [facility] [place] mL/min/1 to non-numeric (Dante .73m2 results) Medical Service) ID Date Data Source [id number] 09/09/2018 12:00:00 AM EST [facility] ([facility]) Name Value Range Interpretation Description Data Sup porting Code Source(s) Document(s ) VITAMIN 31 ng/mL Normal (applies to MEDGEN D,25-OH,TOTA non-numeric (Jonny L,IA results) Medical Service) ID Date Data Source [id number] 09/09/2018 12:00:00 AM EST [facility] ([facility]) Name Value Range Interpretation Description Data Sup porting Code Source(s) Document(s ) Hemoglobin A1c 6.6 % of Above high normal MEDGEN in Blood total Hgb (Dante Medical Service) ID Date Data Source [id number] 09/09/2018 12:00:00 AM EST [facility] ([facility]) Name Value Range Interpretation Description Data Sup porting Code Source(s) Document(s ) FOLATE,SERUM 15.0 Normal (applies to MEDGEN ng/mL non-numeric (Jonny results) Medical Service) VITAMIN B12 440 pg/mL Normal (applies to [facility]GEN non-numeric (Dante results) Medical Service) ID Date Data Source [id number] 09/09/2018 12:00:00 AM EST [facility] ([facility]) Name Value Range Interpretation Description Data Sup porting Code Source(s) Document(s ) Color of Yellow Normal (applies [facility] Peritoneal to non-numeric (Dante dialysis fluid results) Medical Service) Appearance of Clear Normal (applies [facility] Abdomen to non-numeric (Jonny results) Medical Service) Specific gravity 1.023 Normal (applies MEDGEN of Pericardial to non-numeric (Dante fluid by results) Medical Refractometry Service) pH of Lower 5.0 Normal (applies MEDGEN respiratory to non-numeric (Dante specimen results) Medical Service) Glucose Negative Normal (applies [facility]GEN [Mass/volume] in to non-numeric ( y Urine collected results) Medical for unspecified Service) duration Bilirubin Negative Normal (applies MEDGEN [Presence] in to non-numeric (Dante Peritoneal fluid results) Medical Service) Ketones Negative Normal (applies [facility]GEN [Presence] in to non-numeric (Dante Blood by Tablet results) Medical Service) OCCULT BLOOD Negative Normal (applies [facility]GEN to non-numeric (Jonny results) Medical Service) Protein Negative Normal (applies [facility] [Mass/volume] in to non-numeric ([facility] y Lower results) Medical respiratory Service) specimen Nitrite Negative Normal (applies MEDGEN [Presence] in to non-numeric (Dante Urine by Test results) Medical strip Service) Leukocyte Negative Normal (applies MEDGEN esterase to non-numeric (Dante [Presence] in results) Medical Body fluid by Service) Automated test strip ID Date Data Source [id number] 09/09/2018 12:00:00 AM EST MED[facility] ([facility]) Name Value Range Interpretation Description Data Sup porting Code Source(s) Document(s ) WBC 7.5 Normal (applies MEDGEN Thous/mc to non-numeric (Dante L results) Medical Service) RBC 4.74 Normal (applies MEDGEN Mill/mcL to non-numeric (Dante results) Medical Service) Hematocrit [Pure 44.2 % Normal (applies [facility] volume fraction] [facility] Medical Automated count Service) Hemoglobin 14.3 Normal (applies [facility]GEN [Mass/volume] in g/dL to non-numeric ([facility] y Mixed venous results) Medical blood by Service) Oximetry MCV 93.2 fL Normal (applies MEDGEN to non-numeric (Dante results) Medical Service) MCHC 32.2 Normal (applies MEDGEN g/dL to non-numeric (Dante results) Medical Service) MCH 30.0 pg Normal (applies MEDGEN to non-numeric (Jonny results) Medical Service) RDW 13.9 % Normal (applies MEDGEN to non-numeric (Dante results) Medical Service) PLATELET COUNT 302 Normal (applies MEDGEN Thous/mc to non-numeric (Dante L results) Medical Service) MPV 10.8 fL Normal (applies MEDGEN to non-numeric (Jonny results) Medical Service) TOTAL 53.7 % Normal (applies [facility]GEN NEUTROPHILS,% to non-numeric (Dante results) Medical Service) TOTAL 32.2 % Normal (applies [facility]GEN LYMPHOCYTES,% to non-numeric (Dante results) Medical Service) MONOCYTES,% 7.9 % Normal (applies [facility]GEN to non-numeric (Dante results) Medical Service) EOSINOPHILS,% 5.6 % Normal (applies [facility]GEN to non-numeric (Jonny results) Medical Service) NEUTROPHILS,ABSO 4028 Normal (applies MED[facility] LUTE Cells/mc to non-numeric (Jonny L results) Medical Service) BASOPHILS,% 0.6 % Normal (applies MEDGEN to non-numeric (Jonny results) Medical Service) LYMPHOCYTES,ABSO 2415 Normal (applies [facility] LUTE Cells/mc to non-numeric (Jonny L results) Medical Service) EOSINOPHILS,ABSO 420 Normal (applies [facility] LUTE Cells/mc to non-numeric (Dante L results) Medical Service) MONOCYTES,ABSOLU 593 Normal (applies MEDGEN TE Cells/mc to non-numeric (Dante L results) Medical Service) BASOPHILS,ABSOLU 45 Normal (applies MEDGEN TE Cells/mc to non-numeric (Jonny L results) Medical Service) DIFFERENTIAL Normal (applies [facility]GEN to non-numeric (Dante results) Medical Service) ID Date Data Source [id number] 09/09/2018 12:00:00 AM EST [facility] ([facility]) Name Value Range Interpretation Description Data Sup porting Code Source(s) Document(s ) T4 6.9 mcg/dL Normal (applies to [facility] (THYROXINE) non-numeric (Dante , TOTAL results) Medical Service) T3 UPTAKE 31 % Normal (applies to MEDGEN non-numeric (Jonny results) Medical Service) FREE T4 2.1 Normal (applies to [facility] INDEX (T7) non-numeric (Jonny results) Medical Service) ID Date Data Source [id number] 09/09/2018 12:00:00 AM EST [facility] ([facility]) Name Value Range Interpretation Description Data Sup porting Code Source(s) Document(s ) HDL CHOLESTEROL 57 mg/dL Normal (applies [facility]GEN to non-numeric (Dante results) Medical Service) CHOLESTEROL,TOTA 189 Normal (applies MEDGEN L mg/dL to non-numeric (Dante results) Medical Service) CHOLESTEROL/HDL 3.3 calc Normal (applies [facility] RATIO to non-numeric (Dante results) Medical Service) LDL CHOL, 110 Above high normal [facility] CALCULATED mg/dL (Dante Medical Service) TRIGLYCERIDES 111 Normal (applies [facility]GEN mg/dL to non-numeric (Dante results) Medical Service) NON HDL 132 Above high normal MEDGEN CHOLESTEROL mg/dL (Dante (calc) Medical Service) ID Date Data Source [id number] 09/09/2018 12:00:00 AM EST [facility] ([facility]) Name Value Range Interpretation Description Data Sup porting Code Source(s) Document(s ) MICROALBUMIN 0.9 Normal (applies MEDGEN mg/dL to non-numeric (Dante results) Medical Service) MICROALBUMIN:CR 5 mcg/mg Normal (applies [facility]GEN RATIO Creat to non-numeric (Dante results) Medical Service) CREATININE, 167 Normal (applies [facility]GEN RANDOM URINE mg/dL to non-numeric (Dante results) Medical Service) ID Date Data Source [id number] 09/09/2018 12:00:00 AM EST MED[facility] ([facility]) Name Value Range Interpretation Description Data Sup porting Code Source(s) Document(s ) Glucose 101 Normal (applies [facility] [Mass/volume] in mg/dL to non-numeric ([facility] Medical for unspecified Service) duration Sodium 140 Normal (applies MEDGEN [Moles/volume] mmol/L to non-numeric (Jonny in Serum, Plasma results) Medical or Blood Service) Potassium 4.9 Normal (applies [facility]GEN [Mass/volume] in mmol/L to non-numeric ([place] [facility] Blood results) Medical Service) Carbon dioxide 26 Normal (applies MEDGEN [VFr/PPres] in mmol/L to non-numeric (Dante Gas delivery results) Medical system Service) Chloride 103 Normal (applies MEDGEN [Moles/volume] mmol/L to non-numeric (Jonny in Serum, Plasma results) Medical or Blood Service) Urea nitrogen 16 mg/dL Normal (applies MEDGEN [Moles/volume] to non-numeric (Jonny in Blood results) Medical Service) BUN/CREATININE NOTE Normal (applies MEDGEN RATIO to non-numeric (Dante results) Medical Service) Creatinine 0.83 Normal (applies MEDGEN [Interpretation] mg/dL to non-numeric ([place] in Urine results) Medical Service) Calcium 9.6 Normal (applies MEDGEN [Moles/volume] mg/dL to non-numeric (Jonny in Urine results) Medical collected for Service) unspecified duration Microalbumin 4.3 g/dL Normal (applies MEDGEN [Mass/time] in to non-numeric (Jonny Urine collected results) Medical for unspecified Service) duration PROTEIN, TOTAL 7.2 g/dL Normal (applies MEDGEN to non-numeric (Jonny results) Medical Service) Globulin 2.9 g/dL Normal (applies [facility]GEN [Mass/time] in (calc) to non-numeric (Jonny 24 hour Urine results) Medical Service) BILIRUBIN,TOTAL 0.3 Normal (applies [facility]GEN mg/dL to non-numeric (Jonny results) Medical Service) ALBUMIN/GLOBULIN 1.5 Normal (applies MEDGEN RATIO (calc) to non-numeric (Jonny results) Medical Service) Alkaline 78 U/L Normal (applies MEDGEN phosphatase to non-numeric (Jonny [Enzymatic results) Medical activity/volume] Service) in Serum, Plasma or Blood AST 28 U/L Normal (applies MEDGEN to non-numeric (Jonny results) Medical Service) ALT 21 U/L Normal (applies MEDGEN to non-numeric (Jonny results) Medical Service) EGFR NON AFR 71 Normal (applies MEDGEN [place] mL/min/1 to non-numeric (Dante .73m2 results) Medical Service) EGFR 82 Normal (applies [facility] [place] mL/min/1 to non-numeric (Dante .73m2 results) Medical Service) ID Date Data Source [id number] 12/18/2017 12:00:00 AM EST [facility] ([facility]) Name Value Range Interpretation Description Data Sup porting Code Source(s) Document(s ) VITAMIN 62 pg/mL Normal (applies to MEDGEN D,1,25 non-numeric (Dante (OH)2,TOTAL results) Medical Service) VITAMIN D3, 62 pg/mL Normal (applies to MEDGEN 1,25 (OH)2 non-numeric (Jonny results) Medical Service) VITAMIN D2, <8 Normal (applies to MEDGEN 1,25 (OH)2 non-numeric (Dante results) Medical Service) ID Date Data Source [id number] 12/18/2017 12:00:00 AM EST [facility] ([facility]) Name Value Range Interpretation Description Data Sup porting Code Source(s) Document(s ) Hemoglobin 6.8 % of Above high normal MEDGEN A1c/Hemoglobin total Hgb (Dante .total in Medical Blood Service) ID Date Data Source [id number] 12/18/2017 12:00:00 AM EST MED[facility] ([facility]) Name Value Range Interpretation Code Description Data Rafaela rce(s) Supporting Document(s ) FOLATE,SE 14.3 ng/mL Normal (applies to MEDGEN RUM non-numeric (Jonny results) Medical Service) ID Date Data Source [id number] 12/18/2017 12:00:00 AM EST MED[facility] ([facility]) Name Value Range Interpretation Description Data Sup porting Code Source(s) Document(s ) VITAMIN B12 369 pg/mL Normal (applies to MEDGEN non-numeric (Dante results) Medical Service) ID Date Data Source [id number] 12/18/2017 12:00:00 AM EST [facility] ([facility]) Name Value Range Interpretation Description Data Sup porting Code Source(s) Document(s ) WBC 7.8 Normal (applies MEDGEN Thous/mc to non-numeric (Dante L results) Medical Service) RBC 4.48 Normal (applies MEDGEN Mill/mcL to non-numeric (Jonny results) Medical Service) Hemoglobin 13.5 Normal (applies MEDGEN [Mass/volume] in g/dL to non-numeric ([place] [facility] Mixed venous results) Medical blood by Service) Oximetry Hematocrit [Pure 41.0 % Normal (applies MEDGEN volume fraction] to non-numeric ([place] of Blood by results) Medical Automated count Service) MCV 91.6 fL Normal (applies MEDGEN to non-numeric (Dante results) Medical Service) MCH 30.2 pg Normal (applies MEDGEN to non-numeric (Dante results) Medical Service) MCHC 33.0 Normal (applies MEDGEN g/dL to non-numeric (Jonny results) Medical Service) RDW 13.5 % Normal (applies MEDGEN to non-numeric (Jonny results) Medical Service) PLATELET COUNT 301 Normal (applies MEDGEN Thous/mc to non-numeric (Jonny L results) Medical Service) MPV 10.9 fL Normal (applies MEDGEN to non-numeric (Jonny results) Medical Service) TOTAL 63.9 % Normal (applies MEDGEN NEUTROPHILS,% to non-numeric (Dante results) Medical Service) TOTAL 24.4 % Normal (applies MEDGEN LYMPHOCYTES,% to non-numeric (Dante results) Medical Service) MONOCYTES,% 8.1 % Normal (applies MEDGEN to non-numeric (Dante results) Medical Service) EOSINOPHILS,% 3.1 % Normal (applies MEDGEN to non-numeric (Dante results) Medical Service) NEUTROPHILS,ABSO 4984 Normal (applies MEDGEN LUTE Cells/mc to non-numeric (Dante L results) Medical Service) BASOPHILS,% 0.5 % Normal (applies MEDGEN to non-numeric (Dante results) Medical Service) LYMPHOCYTES,ABSO 1903 Normal (applies MEDGEN LUTE Cells/mc to non-numeric (Dante L results) Medical Service) MONOCYTES,ABSOLU 632 Normal (applies MEDGEN TE Cells/mc to non-numeric (Dante L results) Medical Service) BASOPHILS,ABSOLU 39 Normal (applies MEDGEN TE Cells/mc to non-numeric (Jonny L results) Medical Service) EOSINOPHILS,ABSO 242 Normal (applies MEDGEN LUTE Cells/mc to non-numeric (Dante L results) Medical Service) DIFFERENTIAL Normal (applies MEDGEN to non-numeric (Jonny results) Medical Service) ID Date Data Source [id number] 12/18/2017 12:00:00 AM EST [facility] ([facility]) Name Value Range Interpretation Description Data Sup porting Code Source(s) Document(s ) CHOLESTEROL,TOTA 197 Normal (applies MEDGEN L mg/dL to non-numeric (Jonny results) Medical Service) HDL CHOLESTEROL 55 mg/dL Normal (applies MEDGEN to non-numeric (Jonny results) Medical Service) CHOLESTEROL/HDL 3.6 calc Normal (applies MEDGEN RATIO to non-numeric (Dante results) Medical Service) TRIGLYCERIDES 71 mg/dL Normal (applies MEDGEN to non-numeric (Dante results) Medical Service) LDL CHOL, 125 Above high normal MEDGEN CALCULATED mg/dL (Dante Medical Service) NON HDL 142 Above high normal MEDGEN CHOLESTEROL mg/dL (Dante (calc) Medical Service) ID Date Data Source [id number] 12/18/2017 12:00:00 AM EST [facility] ([facility]) Name Value Range Interpretation Description Data Sup porting Code Source(s) Document(s ) Glucose 122 Normal (applies MEDGEN [Mass/volume] in mg/dL to non-numeric ([place] [facility] Urine collected results) Medical for unspecified Service) duration Potassium 4.5 Normal (applies MEDGEN [Mass/volume] in mmol/L to non-numeric (Broad y Blood results) Medical Service) Sodium 138 Normal (applies MEDGEN [Moles/volume] mmol/L to non-numeric (Dante in Serum, Plasma results) Medical or Blood Service) Chloride 101 Normal (applies MEDGEN [Moles/volume] mmol/L to non-numeric (Dante in Serum, Plasma results) Medical or Blood Service) Carbon dioxide 20 Normal (applies MEDGEN [VFr/PPres] in mmol/L to non-numeric (Jonny Gas delivery results) Medical system Service) Urea nitrogen 14 mg/dL Normal (applies MEDGEN [Moles/volume] to non-numeric (Jonny in Blood results) Medical Service) Creatinine 0.71 Normal (applies MEDGEN [Interpretation] mg/dL to non-numeric ( y in Urine results) Medical Service) BUN/CREATININE NOTE Normal (applies MEDGEN RATIO to non-numeric (Dante results) Medical Service) Calcium 9.7 Normal (applies MEDGEN [Moles/volume] mg/dL to non-numeric (Jonny in Urine results) Medical collected for Service) unspecified duration Microalbumin 4.2 g/dL Normal (applies MEDGEN [Mass/time] in to non-numeric (Dante Urine collected results) Medical for unspecified Service) duration PROTEIN, TOTAL 7.6 g/dL Normal (applies MEDGEN to non-numeric (Jonny results) Medical Service) Globulin 3.4 g/dL Normal (applies MEDGEN [Mass/time] in (calc) to non-numeric (Jonny 24 hour Urine results) Medical Service) ALBUMIN/GLOBULIN 1.2 Normal (applies MEDGEN RATIO (calc) to non-numeric (Jonny results) Medical Service) BILIRUBIN,TOTAL 0.3 Normal (applies MEDGEN mg/dL to non-numeric (Jonny results) Medical Service) Alkaline 65 U/L Normal (applies MEDGEN phosphatase to non-numeric (Jonny [Enzymatic results) Medical activity/volume] Service) in Serum, Plasma or Blood AST 13 U/L Normal (applies MEDGEN to non-numeric (Jonny results) Medical Service) ALT 9 U/L Normal (applies MEDGEN to non-numeric (Dante results) Medical Service) EGFR NON AFR 86 Normal (applies MEDGEN [place] mL/min/1 to non-numeric (Dante .73m2 results) Medical Service) EGFR 100 Normal (applies MEDGEN [place] mL/min/1 to non-numeric (Dante .73m2 results) Medical Service) ID Date Data Source [id number] 12/18/2017 12:00:00 AM EST [facility] ([facility]) Name Value Range Interpretation Description Data Sup porting Code Source(s) Document(s ) TSH 5.16 mIU/L Above high normal MEDGEN (Jonny Medical Service) T4 6.9 mcg/dL Normal (applies to MEDGEN (THYROXINE) non-numeric (Dante , TOTAL results) Medical Service) T3 UPTAKE 31 % Normal (applies to MEDGEN non-numeric (Jonny results) Medical Service) FREE T4 2.1 Normal (applies to MEDGEN INDEX (T7) non-numeric (Dante results) Medical Service) T3,TOTAL 103 ng/dL Normal (applies to MEDGEN non-numeric (Dante results) Medical Service) ID Date Data Source [id number] 12/18/2017 12:00:00 AM EST [facility] ([facility]) Name Value Range Interpretation Description Data Sup porting Code Source(s) Document(s ) VITAMIN 62 pg/mL Normal (applies to MEDGEN D,1,25 non-numeric (Dante (OH)2,TOTAL results) Medical Service) VITAMIN D3, 62 pg/mL Normal (applies to MEDGEN 1,25 (OH)2 non-numeric (Dante results) Medical Service) VITAMIN D2, <8 Normal (applies to MEDGEN 1,25 (OH)2 non-numeric (Dante results) Medical Service) ID Date Data Source [id number] 12/18/2017 12:00:00 AM EST [facility] ([facility]) Name Value Range Interpretation Description Data Sup porting Code Source(s) Document(s ) Hemoglobin 6.8 % of Above high normal MEDGEN A1c/Hemoglobin total Hgb (Jonny .total in Medical Blood Service) ID Date Data Source [id number] 12/18/2017 12:00:00 AM EST [facility] ([facility]) Name Value Range Interpretation Code Description Data Rafaela rce(s) Supporting Document(s ) FOLATE,SE 14.3 ng/mL Normal (applies to MEDGEN RUM non-numeric (Dante results) Medical Service) ID Date Data Source [id number] 12/18/2017 12:00:00 AM EST MEDGEN ([facility] Service) Name Value Range Interpretation Description Data Sup porting Code Source(s) Document(s ) VITAMIN B12 369 pg/mL Normal (applies to MEDGEN non-numeric (Jonny results) Medical Service) ID Date Data Source [id number] 12/18/2017 12:00:00 AM EST MEDGEN ([facility] Service) Name Value Range Interpretation Description Data Sup porting Code Source(s) Document(s ) WBC 7.8 Normal (applies MEDGEN Thous/mc to non-numeric (Dante L results) Medical Service) RBC 4.48 Normal (applies MEDGEN Mill/mcL to non-numeric (Jonny results) Medical Service) Hemoglobin 13.5 Normal (applies MEDGEN [Mass/volume] in g/dL to non-numeric ([place] [facility] Mixed venous results) Medical blood by Service) Oximetry Hematocrit [Pure 41.0 % Normal (applies MEDGEN volume fraction] to non-numeric ([place] of Blood by results) Medical Automated count Service) MCV 91.6 fL Normal (applies MEDGEN to non-numeric (Dante results) Medical Service) MCH 30.2 pg Normal (applies MEDGEN to non-numeric (Jonny results) Medical Service) MCHC 33.0 Normal (applies MEDGEN g/dL to non-numeric (Dante results) Medical Service) RDW 13.5 % Normal (applies MEDGEN to non-numeric (Jonny results) Medical Service) PLATELET COUNT 301 Normal (applies MEDGEN Thous/mc to non-numeric (Dante L results) Medical Service) MPV 10.9 fL Normal (applies MEDGEN to non-numeric (Jonny results) Medical Service) TOTAL 63.9 % Normal (applies MEDGEN NEUTROPHILS,% to non-numeric (Jonny results) Medical Service) TOTAL 24.4 % Normal (applies MEDGEN LYMPHOCYTES,% to non-numeric (Dante results) Medical Service) EOSINOPHILS,% 3.1 % Normal (applies MEDGEN to non-numeric (Jonny results) Medical Service) MONOCYTES,% 8.1 % Normal (applies [facility] to non-numeric (Jonny results) Medical Service) BASOPHILS,% 0.5 % Normal (applies [facility] to non-numeric (Jonny results) Medical Service) NEUTROPHILS,ABSO 4984 Normal (applies [facility] LUTE Cells/mc to non-numeric (Jonny L results) Medical Service) MONOCYTES,ABSOLU 632 Normal (applies MED[facility] TE Cells/mc to non-numeric (Dante L results) Medical Service) LYMPHOCYTES,ABSO 1903 Normal (applies [facility] LUTE Cells/mc to non-numeric (Jonny L results) Medical Service) EOSINOPHILS,ABSO 242 Normal (applies [facility] LUTE Cells/mc to non-numeric (Jonny L results) Medical Service) BASOPHILS,ABSOLU 39 Normal (applies [facility] TE Cells/mc to non-numeric (Dante L results) Medical Service) DIFFERENTIAL Normal (applies [facility] to non-numeric (Jonny results) Medical Service) ID Date Data Source [id number] 12/18/2017 12:00:00 AM EST [facility] ([facility]) Name Value Range Interpretation Description Data Sup porting Code Source(s) Document(s ) CHOLESTEROL,TOTA 197 Normal (applies [facility]GEN L mg/dL to non-numeric (Jonny results) Medical Service) HDL CHOLESTEROL 55 mg/dL Normal (applies [facility] to non-numeric (Dante results) Medical Service) CHOLESTEROL/HDL 3.6 calc Normal (applies [facility] RATIO to non-numeric (Dante results) Medical Service) TRIGLYCERIDES 71 mg/dL Normal (applies [facility] to non-numeric (Dante results) Medical Service) LDL CHOL, 125 Above high normal [facility] CALCULATED mg/dL ([facility] Medical Service) NON HDL 142 Above high normal [facility] CHOLESTEROL mg/dL (Jonny (calc) Medical Service) ID Date Data Source [id number] 12/18/2017 12:00:00 AM EST [facility] ([facility]) Name Value Range Interpretation Description Data Sup porting Code Source(s) Document(s ) Glucose 122 Normal (applies [facility] [Mass/volume] in mg/dL to non-numeric ([place] [facility] Urine collected results) Medical for unspecified Service) duration Sodium 138 Normal (applies [facility] [Moles/volume] mmol/L to non-numeric (Dante in Serum, Plasma results) Medical or Blood Service) Potassium 4.5 Normal (applies [facility] [Mass/volume] in mmol/L to non-numeric ([place] [facility] Blood results) Medical Service) Chloride 101 Normal (applies [facility] [Moles/volume] mmol/L to non-numeric (Dante in Serum, Plasma results) Medical or Blood Service) Carbon dioxide 20 Normal (applies [facility] [VFr/PPres] in mmol/L to non-numeric (Jonny Gas delivery results) Medical system Service) Urea nitrogen 14 mg/dL Normal (applies [facility] [Moles/volume] to non-numeric (Dante in Blood results) Medical Service) Creatinine 0.71 Normal (applies [facility] [Interpretation] mg/dL [facility] Service) BUN/CREATININE NOTE Normal (applies [facility] RATIO to non-numeric (Dante results) Medical Service) Calcium 9.7 Normal (applies [facility] [Moles/volume] mg/dL to non-numeric (Dante in Urine results) Medical collected for Service) unspecified duration PROTEIN, TOTAL 7.6 g/dL Normal (applies [facility] to non-numeric (Jonny results) Medical Service) Microalbumin 4.2 g/dL Normal (applies [facility] [Mass/time] in to non-numeric (Jonny Urine collected results) Medical for unspecified Service) duration Globulin 3.4 g/dL Normal (applies [facility] [Mass/time] in (calc) to non-numeric (Dante 24 hour Urine results) Medical Service) ALBUMIN/GLOBULIN 1.2 Normal (applies [facility] RATIO (calc) to non-numeric (Dante results) Medical Service) BILIRUBIN,TOTAL 0.3 Normal (applies [facility] mg/dL to non-numeric (Dante results) Medical Service) Alkaline 65 U/L Normal (applies [facility] phosphatase to non-numeric (Dante [Enzymatic results) Medical activity/volume] Service) in Serum, Plasma or Blood AST 13 U/L Normal (applies [facility] to non-numeric (Dante results) Medical Service) ALT 9 U/L Normal (applies [facility] to non-numeric (Dante results) Medical Service) EGFR NON AFR 86 Normal (applies [facility] [place] mL/min/1 to non-numeric (Jonny .73m2 results) Medical Service) EGFR 100 Normal (applies [facility] [place] mL/min/1 to non-numeric (Jonny .73m2 results) Medical Service) ID Date Data Source [id number] 12/18/2017 12:00:00 AM EST [facility] ([facility]) Name Value Range Interpretation Description Data Sup porting Code Source(s) Document(s ) TSH 5.16 mIU/L Above high normal MEDGEN ([facility] Medical Service) T4 6.9 mcg/dL Normal (applies to [facility]GEN (THYROXINE) non-numeric (Jonny , TOTAL results) Medical Service) T3 UPTAKE 31 % Normal (applies to [facility]GEN non-numeric (Dante results) Medical Service) FREE T4 2.1 Normal (applies to [facility]GEN INDEX (T7) non-numeric (Dante results) Medical Service) T3,TOTAL 103 ng/dL Normal (applies to [facility]GEN non-numeric (Dante results) Medical Service) ID Date Data Source [id number] 12/18/2017 12:00:00 AM EST [facility] ([facility]) Name Value Range Interpretation Description Data Sup porting Code Source(s) Document(s ) VITAMIN 62 pg/mL Normal (applies to MEDGEN D,1,25 non-numeric (Dante ([place])2,TOTAL results) Medical Service) VITAMIN D3, 62 pg/mL Normal (applies to MEDGEN 1,25 (OH)2 non-numeric (Jonny results) Medical Service) VITAMIN D2, <8 Normal (applies to MEDGEN 1,25 (OH)2 non-numeric (Dante results) Medical Service) ID Date Data Source [id number] 12/18/2017 12:00:00 AM EST [facility] ([facility]) Name Value Range Interpretation Description Data Sup porting Code Source(s) Document(s ) Hemoglobin 6.8 % of Above high normal MEDGEN A1c/Hemoglobin total Hgb (Dante .total in Medical Blood Service) ID Date Data Source [id number] 12/18/2017 12:00:00 AM EST [facility] ([facility]) Name Value Range Interpretation Code Description Data Rafaela rce(s) Supporting Document(s ) FOLATE,SE 14.3 ng/mL Normal (applies to [facility] RUM non-numeric (Jonny results) Medical Service) ID Date Data Source [id number] 12/18/2017 12:00:00 AM EST [facility] ([facility]) Name Value Range Interpretation Description Data Sup porting Code Source(s) Document(s ) VITAMIN B12 369 pg/mL Normal (applies to MEDGEN non-numeric (Dante results) Medical Service) ID Date Data Source [id number] 12/18/2017 12:00:00 AM EST [facility] ([facility]) Name Value Range Interpretation Description Data Sup porting Code Source(s) Document(s ) RBC 4.48 Normal (applies MEDGEN Mill/mcL to non-numeric (Jonny results) Medical Service) WBC 7.8 Normal (applies MEDGEN Thous/mc to non-numeric (Jonny L results) Medical Service) Hemoglobin 13.5 Normal (applies [facility] [Mass/volume] in g/dL to non-numeric ([place] [facility] Mixed venous results) Medical blood by Service) Oximetry Hematocrit [Pure 41.0 % Normal (applies MEDGEN volume fraction] to non-numeric ([place] of Blood by results) Medical Automated count Service) MCH 30.2 pg Normal (applies MEDGEN to non-numeric (Dante results) Medical Service) MCV 91.6 fL Normal (applies MEDGEN to non-numeric (Jonny results) Medical Service) MCHC 33.0 Normal (applies [facility] g/dL to non-numeric (Jonny results) Medical Service) RDW 13.5 % Normal (applies [facility] to non-numeric (Dante results) Medical Service) PLATELET COUNT 301 Normal (applies MEDGEN Thous/mc to non-numeric (Dante L results) Medical Service) MPV 10.9 fL Normal (applies [facility] to non-numeric (Jonny results) Medical Service) TOTAL 63.9 % Normal (applies [facility] NEUTROPHILS,% to non-numeric (Dante results) Medical Service) TOTAL 24.4 % Normal (applies [facility] LYMPHOCYTES,% to non-numeric (Dante results) Medical Service) MONOCYTES,% 8.1 % Normal (applies [facility] to non-numeric (Dante results) Medical Service) EOSINOPHILS,% 3.1 % Normal (applies [facility] to non-numeric (Dante results) Medical Service) BASOPHILS,% 0.5 % Normal (applies [facility] to non-numeric (Jonny results) Medical Service) NEUTROPHILS,ABSO 4984 Normal (applies MEDGEN LUTE Cells/mc to non-numeric (Jonny L results) Medical Service) LYMPHOCYTES,ABSO 1903 Normal (applies [facility] LUTE Cells/mc to non-numeric (Dante L results) Medical Service) MONOCYTES,ABSOLU 632 Normal (applies MEDGEN TE Cells/mc to non-numeric (Jonny L results) Medical Service) EOSINOPHILS,ABSO 242 Normal (applies MEDGEN LUTE Cells/mc to non-numeric (Dante L results) Medical Service) BASOPHILS,ABSOLU 39 Normal (applies MEDGEN TE Cells/mc to non-numeric (Dante L results) Medical Service) DIFFERENTIAL Normal (applies [facility] to non-numeric (Jonny results) Medical Service) ID Date Data Source [id number] 12/18/2017 12:00:00 AM EST [facility] ([facility]) Name Value Range Interpretation Description Data Sup porting Code Source(s) Document(s ) CHOLESTEROL,TOTA 197 Normal (applies MEDGEN L mg/dL to non-numeric (Jonny results) Medical Service) HDL CHOLESTEROL 55 mg/dL Normal (applies [facility] to non-numeric (Dante results) Medical Service) CHOLESTEROL/HDL 3.6 calc Normal (applies [facility] RATIO to non-numeric (Jonny results) Medical Service) LDL CHOL, 125 Above high normal [facility] CALCULATED mg/dL (Dante Medical Service) TRIGLYCERIDES 71 mg/dL Normal (applies [facility] to non-numeric (Jonny results) Medical Service) NON HDL 142 Above high normal MEDGEN CHOLESTEROL mg/dL (Jonny (calc) Medical Service) ID Date Data Source [id number] 12/18/2017 12:00:00 AM EST [facility] ([facility]) Name Value Range Interpretation Description Data Sup porting Code Source(s) Document(s ) Sodium 138 Normal (applies [facility] [Moles/volume] mmol/L to non-numeric (Jonny in Serum, Plasma results) Medical or Blood Service) Glucose 122 Normal (applies [facility] [Mass/volume] in mg/dL to non-numeric ([place] Urine collected results) Medical for unspecified Service) duration Potassium 4.5 Normal (applies [facility] [Mass/volume] in mmol/L to non-numeric ([place] Blood results) Medical Service) Chloride 101 Normal (applies [facility] [Moles/volume] mmol/L to non-numeric (Jonny in Serum, Plasma results) Medical or Blood Service) Urea nitrogen 14 mg/dL Normal (applies [facility]GEN [Moles/volume] to non-numeric (Jonny in Blood results) Medical Service) Carbon dioxide 20 Normal (applies [facility]GEN [VFr/PPres] in mmol/L to non-numeric (Jonny Gas delivery results) Medical system Service) Creatinine 0.71 Normal (applies [facility] [Interpretation] mg/dL to non-numeric ([place] in Urine results) Medical Service) BUN/CREATININE NOTE Normal (applies [facility] RATIO to non-numeric (Jonny results) Medical Service) Calcium 9.7 Normal (applies [facility] [Moles/volume] mg/dL to non-numeric (Dante in Urine results) Medical collected for Service) unspecified duration PROTEIN, TOTAL 7.6 g/dL Normal (applies [facility] to non-numeric (Dante results) Medical Service) Microalbumin 4.2 g/dL Normal (applies [facility] [Mass/time] in to non-numeric (Dante Urine collected results) Medical for unspecified Service) duration Globulin 3.4 g/dL Normal (applies [facility] [Mass/time] in (calc) to non-numeric (Dante 24 hour Urine results) Medical Service) ALBUMIN/GLOBULIN 1.2 Normal (applies [facility]GEN RATIO (calc) to non-numeric (Dante results) Medical Service) BILIRUBIN,TOTAL 0.3 Normal (applies [facility] mg/dL to non-numeric (Jonny results) Medical Service) AST 13 U/L Normal (applies [facility] to non-numeric (Jonny results) Medical Service) Alkaline 65 U/L Normal (applies MEDGEN phosphatase to non-numeric (Dante [Enzymatic results) Medical activity/volume] Service) in Serum, Plasma or Blood ALT 9 U/L Normal (applies [facility] to non-numeric (Dante results) Medical Service) EGFR NON AFR 86 Normal (applies [facility]GEN [place] mL/min/1 to non-numeric (Dante .73m2 results) Medical Service) EGFR 100 Normal (applies [facility] [place] mL/min/1 to non-numeric (Dante .73m2 results) Medical Service) ID Date Data Source [id number] 12/18/2017 12:00:00 AM EST MEDGEN ([facility]) Name Value Range Interpretation Description Data Sup porting Code Source(s) Document(s ) TSH 5.16 mIU/L Above high normal MEDGEN ([facility] Medical Service) T4 6.9 mcg/dL Normal (applies to MEDGEN (THYROXINE) non-numeric (Dante , TOTAL results) Medical Service) T3 UPTAKE 31 % Normal (applies to MEDGEN non-numeric (Dante results) Medical Service) FREE T4 2.1 Normal (applies to MEDGEN INDEX (T7) non-numeric (Dante results) Medical Service) T3,TOTAL 103 ng/dL Normal (applies to MEDGEN non-numeric (Dante results) Medical Service) ID Date Data Source [id number] 12/18/2017 12:00:00 AM EST [facility] ([facility]) Name Value Range Interpretation Description Data Sup porting Code Source(s) Document(s ) VITAMIN D3, 62 pg/mL Normal (applies to MEDGEN 1,25 (OH)2 non-numeric (Dante results) Medical Service) VITAMIN 62 pg/mL Normal (applies to MEDGEN D,1,25 non-numeric (Dante (OH)2,TOTAL results) Medical Service) VITAMIN D2, <8 Normal (applies to MEDGEN 1,25 (OH)2 non-numeric (Jonny results) Medical Service) ID Date Data Source [id number] 12/18/2017 12:00:00 AM EST [facility] ([facility] [facility]) Name Value Range Interpretation Description Data Sup porting Code Source(s) Document(s ) Hemoglobin 6.8 % of Above high normal MEDGEN A1c/Hemoglobin total Hgb (Jonny .total in Medical Blood Service) ID Date Data Source [id number] 12/18/2017 12:00:00 AM EST [facility] ([facility]) Name Value Range Interpretation Code Description Data Rafaela rce(s) Supporting Document(s ) FOLATE,SE 14.3 ng/mL Normal (applies to MEDGEN RUM non-numeric (Jonny results) Medical Service) ID Date Data Source [id number] 12/18/2017 12:00:00 AM EST [facility] ([facility]) Name Value Range Interpretation Description Data Sup porting Code Source(s) Document(s ) VITAMIN B12 369 pg/mL Normal (applies to MEDGEN non-numeric (Dante results) Medical Service) ID Date Data Source [id number] 12/18/2017 12:00:00 AM EST [facility] ([facility]) Name Value Range Interpretation Description Data Sup porting Code Source(s) Document(s ) RBC 4.48 Normal (applies MEDGEN Mill/mcL to non-numeric (Jonny results) Medical Service) WBC 7.8 Normal (applies MEDGEN Thous/mc to non-numeric (Dante L results) Medical Service) Hemoglobin 13.5 Normal (applies MEDGEN [Mass/volume] in g/dL to non-numeric ([place] Mixed venous results) Medical blood by Service) Oximetry Hematocrit [Pure 41.0 % Normal (applies MEDGEN volume fraction] to non-numeric ([place] of Blood by results) Medical Automated count Service) MCV 91.6 fL Normal (applies MEDGEN to non-numeric (Dante results) Medical Service) MCH 30.2 pg Normal (applies MEDGEN to non-numeric (Jonny results) Medical Service) RDW 13.5 % Normal (applies MEDGEN to non-numeric (Jonny results) Medical Service) MCHC 33.0 Normal (applies MEDGEN g/dL to non-numeric (Jonny results) Medical Service) PLATELET COUNT 301 Normal (applies MEDGEN Thous/mc to non-numeric (Jonny L results) Medical Service) MPV 10.9 fL Normal (applies MEDGEN to non-numeric (Jonny results) Medical Service) TOTAL 63.9 % Normal (applies MEDGEN NEUTROPHILS,% to non-numeric (Dante results) Medical Service) TOTAL 24.4 % Normal (applies [facility]GEN LYMPHOCYTES,% to non-numeric (Dante results) Medical Service) MONOCYTES,% 8.1 % Normal (applies MEDGEN to non-numeric (Jonny results) Medical Service) BASOPHILS,% 0.5 % Normal (applies MEDGEN to non-numeric (Dante results) Medical Service) EOSINOPHILS,% 3.1 % Normal (applies MEDGEN to non-numeric (Dante results) Medical Service) NEUTROPHILS,ABSO 4984 Normal (applies MEDGEN LUTE Cells/mc to non-numeric (Jonny L results) Medical Service) LYMPHOCYTES,ABSO 1903 Normal (applies MEDGEN LUTE Cells/mc to non-numeric (Dante L results) Medical Service) MONOCYTES,ABSOLU 632 Normal (applies MEDGEN TE Cells/mc to non-numeric (Dante L results) Medical Service) EOSINOPHILS,ABSO 242 Normal (applies MEDGEN LUTE Cells/mc to non-numeric (Jonny L results) Medical Service) DIFFERENTIAL Normal (applies MEDGEN to non-numeric (Jonny results) Medical Service) BASOPHILS,ABSOLU 39 Normal (applies MEDGEN TE Cells/mc to non-numeric (Dante L results) Medical Service) ID Date Data Source [id number] 12/18/2017 12:00:00 AM EST [facility] ([facility]) Name Value Range Interpretation Description Data Sup porting Code Source(s) Document(s ) CHOLESTEROL,TOTA 197 Normal (applies MEDGEN L mg/dL to non-numeric (Jonny results) Medical Service) HDL CHOLESTEROL 55 mg/dL Normal (applies MEDGEN to non-numeric (Dante results) Medical Service) LDL CHOL, 125 Above high normal MEDGEN CALCULATED mg/dL (Dante Medical Service) CHOLESTEROL/HDL 3.6 calc Normal (applies MEDGEN RATIO to non-numeric (Jonny results) Medical Service) TRIGLYCERIDES 71 mg/dL Normal (applies MEDGEN to non-numeric (Jonny results) Medical Service) NON HDL 142 Above high normal MEDGEN CHOLESTEROL mg/dL (Dante (calc) Medical Service) ID Date Data Source [id number] 12/18/2017 12:00:00 AM EST [facility] ([facility]) Name Value Range Interpretation Description Data Sup porting Code Source(s) Document(s ) Glucose 122 Normal (applies MEDGEN [Mass/volume] in mg/dL to non-numeric ([place] [facility] Urine collected results) Medical for unspecified Service) duration Sodium 138 Normal (applies MEDGEN [Moles/volume] mmol/L to non-numeric (Dante in Serum, Plasma results) Medical or Blood Service) Potassium 4.5 Normal (applies MEDGEN [Mass/volume] in mmol/L to non-numeric ([place] [facility] Blood results) Medical Service) Chloride 101 Normal (applies MEDGEN [Moles/volume] mmol/L to non-numeric (Dante in Serum, Plasma results) Medical or Blood Service) Urea nitrogen 14 mg/dL Normal (applies MEDGEN [Moles/volume] to non-numeric (Dante in Blood results) Medical Service) Carbon dioxide 20 Normal (applies MEDGEN [VFr/PPres] in mmol/L to non-numeric (Jonny Gas delivery results) Medical system Service) Creatinine 0.71 Normal (applies MEDGEN [Interpretation] mg/dL to non-numeric ([place] in Urine results) Medical Service) Calcium 9.7 Normal (applies MEDGEN [Moles/volume] mg/dL to non-numeric (Dante in Urine results) Medical collected for Service) unspecified duration BUN/CREATININE NOTE Normal (applies MEDGEN RATIO to non-numeric (Dante results) Medical Service) PROTEIN, TOTAL 7.6 g/dL Normal (applies MEDGEN to non-numeric (Jonny results) Medical Service) Microalbumin 4.2 g/dL Normal (applies MEDGEN [Mass/time] in to non-numeric (Jonny Urine collected results) Medical for unspecified Service) duration Globulin 3.4 g/dL Normal (applies MEDGEN [Mass/time] in (calc) to non-numeric (Dante 24 hour Urine results) Medical Service) ALBUMIN/GLOBULIN 1.2 Normal (applies MEDGEN RATIO (calc) to non-numeric (Jonny results) Medical Service) BILIRUBIN,TOTAL 0.3 Normal (applies MEDGEN mg/dL to non-numeric (Jonny results) Medical Service) Alkaline 65 U/L Normal (applies MEDGEN phosphatase to non-numeric (Jonny [Enzymatic results) Medical activity/volume] Service) in Serum, Plasma or Blood AST 13 U/L Normal (applies MEDGEN to non-numeric (Dante results) Medical Service) ALT 9 U/L Normal (applies MEDGEN to non-numeric (Dante results) Medical Service) EGFR NON AFR 86 Normal (applies MEDGEN [place] mL/min/1 to non-numeric (Dante .73m2 results) Medical Service) EGFR 100 Normal (applies MEDGEN [place] mL/min/1 to non-numeric (Jonny .73m2 results) Medical Service) ID Date Data Source [id number] 12/18/2017 12:00:00 AM EST [facility] ([facility]) Name Value Range Interpretation Description Data Sup porting Code Source(s) Document(s ) TSH 5.16 mIU/L Above high normal MEDGEN ([facility] Medical Service) T4 6.9 mcg/dL Normal (applies to MEDGEN (THYROXINE) non-numeric (Dante , TOTAL results) Medical Service) T3 UPTAKE 31 % Normal (applies to MEDGEN non-numeric (Dante results) Medical Service) FREE T4 2.1 Normal (applies to MEDGEN INDEX (T7) non-numeric (Jonny results) Medical Service) T3,TOTAL 103 ng/dL Normal (applies to MEDGEN non-numeric (Dante results) Medical Service) ID Date Data Source [id number] 05/25/2017 12:00:00 AM EDT [facility] ([facility]) Name Value Range Interpretation Description Data Sup porting Code Source(s) Document(s ) Hemoglobin 6.2 % of Above high normal MEDGEN A1c/Hemoglobin total Hgb (Dante .total in Medical Blood Service) ID Date Data Source [id number] 05/25/2017 12:00:00 AM EDT [facility] ([facility]) Name Value Range Interpretation Code Description Data Rafaela rce(s) Supporting Document(s ) FOLATE,SER >24.0 Normal (applies to MEDGEN UM non-numeric results) (Dante Medical Service) ID Date Data Source [id number] 05/25/2017 12:00:00 AM EDT [facility] ([facility]) Name Value Range Interpretation Description Data Sup porting Code Source(s) Document(s ) VITAMIN B12 423 pg/mL Normal (applies to MEDGEN non-numeric (Jonny results) Medical Service) ID Date Data Source [id number] 05/25/2017 12:00:00 AM EDT [facility] ([facility]) Name Value Range Interpretation Description Data Sup porting Code Source(s) Document(s ) WBC 8.4 Normal (applies MEDGEN Thous/mc to non-numeric (Jonny L results) Medical Service) RBC 4.49 Normal (applies MEDGEN Mill/mcL to non-numeric (Jonny results) Medical Service) Hemoglobin 13.4 Normal (applies MEDGEN [Mass/volume] in g/dL to non-numeric ([place] Mixed venous results) Medical blood by Service) Oximetry Hematocrit [Pure 41.3 % Normal (applies MEDGEN volume fraction] to non-numeric ([place] of Blood by results) Medical Automated count Service) MCH 29.8 pg Normal (applies MEDGEN to non-numeric (Dante results) Medical Service) MCV 92.2 fL Normal (applies MEDGEN to non-numeric (Jonny results) Medical Service) MCHC 32.4 Normal (applies MEDGEN g/dL to non-numeric (Dante results) Medical Service) RDW 14.1 % Normal (applies MEDGEN to non-numeric (Dante results) Medical Service) PLATELET COUNT 309 Normal (applies MEDGEN Thous/mc to non-numeric (Jonny L results) Medical Service) MPV 11.2 fL Normal (applies MEDGEN to non-numeric (Dante results) Medical Service) TOTAL 58.2 % Normal (applies MEDGEN NEUTROPHILS,% to non-numeric (Jonny results) Medical Service) TOTAL 30.9 % Normal (applies MEDGEN LYMPHOCYTES,% to non-numeric (Dante results) Medical Service) MONOCYTES,% 7.0 % Normal (applies MEDGEN to non-numeric (Jonny results) Medical Service) EOSINOPHILS,% 3.3 % Normal (applies MEDGEN to non-numeric (Jonny results) Medical Service) BASOPHILS,% 0.6 % Normal (applies MEDGEN to non-numeric (Dante results) Medical Service) NEUTROPHILS,ABSO 4889 Normal (applies MEDGEN LUTE Cells/mc to non-numeric (Dante L results) Medical Service) LYMPHOCYTES,ABSO 2596 Normal (applies MEDGEN LUTE Cells/mc to non-numeric (Dante L results) Medical Service) MONOCYTES,ABSOLU 588 Normal (applies MEDGEN TE Cells/mc to non-numeric (Dante L results) Medical Service) EOSINOPHILS,ABSO 277 Normal (applies MEDGEN LUTE Cells/mc to non-numeric (Jonny L results) Medical Service) DIFFERENTIAL Normal (applies MEDGEN to non-numeric (Jonny results) Medical Service) BASOPHILS,ABSOLU 50 Normal (applies MEDGEN TE Cells/mc to non-numeric (Jonny L results) Medical Service) ID Date Data Source [id number] 05/25/2017 12:00:00 AM EDT [facility] ([facility]) Name Value Range Interpretation Description Data Sup porting Code Source(s) Document(s ) CHOLESTEROL,TOTA 200 Normal (applies MEDGEN L mg/dL to non-numeric (Dante results) Medical Service) CHOLESTEROL/HDL 3.4 Normal (applies MEDGEN RATIO to non-numeric (Dante results) Medical Service) HDL CHOLESTEROL 59 mg/dL Normal (applies MEDGEN to non-numeric (Jonny results) Medical Service) LDL CHOL, 115 Normal (applies MEDGEN CALCULATED mg/dL to non-numeric (Jonny results) Medical Service) TRIGLYCERIDES 129 Normal (applies MEDGEN mg/dL to non-numeric (Jonny results) Medical Service) NON HDL 141 Normal (applies MEDGEN CHOLESTEROL mg/dL to non-numeric (Jonny results) Medical Service) ID Date Data Source [id number] 05/25/2017 12:00:00 AM EDT [facility] ([facility]) Name Value Range Interpretation Code Description Data Rafaela rce(s) Supporting Document(s ) URIC ACID 3.9 mg/dL Normal (applies to MEDGEN non-numeric (Jonny results) Medical Service) ID Date Data Source [id number] 05/25/2017 12:00:00 AM EDT MED[facility] ([facility] [facility]) Name Value Range Interpretation Description Data Sup porting Code Source(s) Document(s ) Glucose 91 mg/dL Normal (applies [facility] [Mass/volume] in to non-numeric ([place] Urine collected results) Medical for unspecified Service) duration Sodium 138 Normal (applies [facility] [Moles/volume] mmol/L to non-numeric (Dante in Serum, Plasma results) Medical or Blood Service) Potassium 4.4 Normal (applies [facility] [Mass/volume] in mmol/L to non-numeric ([place] [facility] Blood results) Medical Service) Chloride 100 Normal (applies [facility] [Moles/volume] mmol/L to non-numeric (Dante in Serum, Plasma results) Medical or Blood Service) Carbon dioxide 24 Normal (applies [facility] [VFr/PPres] in mmol/L to non-numeric (Jonny Gas delivery results) Medical system Service) Urea nitrogen 14 mg/dL Normal (applies [facility] [Moles/volume] to non-numeric (Jonny in Blood results) Medical Service) Creatinine 0.83 Normal (applies [facility] [Interpretation] mg/dL to non-numeric ([place] in Urine results) Medical Service) BUN/CREATININE NOTE Normal (applies [facility] RATIO to non-numeric (Dante results) Medical Service) Calcium 9.8 Normal (applies [facility] [Moles/volume] mg/dL to non-numeric (Jonny in Urine results) Medical collected for Service) unspecified duration PROTEIN, TOTAL 7.5 g/dL Normal (applies [facility] to non-numeric (Dante results) Medical Service) Microalbumin 4.3 g/dL Normal (applies [facility] [Mass/time] in to non-numeric (Jonny Urine collected results) Medical for unspecified Service) duration Globulin 3.2 g/dL Normal (applies [facility] [Mass/time] in (calc) to non-numeric (Dante 24 hour Urine results) Medical Service) ALBUMIN/GLOBULIN 1.3 Normal (applies [facility] RATIO (calc) to non-numeric (Dante results) Medical Service) BILIRUBIN,TOTAL 0.4 Normal (applies [facility] mg/dL to non-numeric (Dante results) Medical Service) Alkaline 86 U/L Normal (applies MED[facility] phosphatase to non-numeric (Dante [Enzymatic results) Medical activity/volume] Service) in Serum, Plasma or Blood AST 21 U/L Normal (applies [facility] to non-numeric (Jonny results) Medical Service) ALT 16 U/L Normal (applies [facility] to non-numeric (Jonny results) Medical Service) EGFR 83 Normal (applies [facility] [place] mL/min/1 to non-numeric (Jonny .73m2 results) Medical Service) EGFR NON AFR 71 Normal (applies [facility] [place] mL/min/1 to non-numeric (Dante .73m2 results) Medical Service) ID Date Data Source [id number] 05/25/2017 12:00:00 AM EDT [facility] ([facility]) Name Value Range Interpretation Code Description Data Rafaela rce(s) Supporting Document(s ) ID Date Data Source [id number] 05/25/2017 12:00:00 AM EDT [facility] ([facility]) Name Value Range Interpretation Description Data Sup porting Code Source(s) Document(s ) TSH 2.36 mIU/L Normal (applies to MED[facility] non-numeric (Dante results) Medical Service) T4 6.1 mcg/dL Normal (applies to [facility] (THYROXINE) non-numeric (Jonny , TOTAL results) Medical Service) T3 UPTAKE 31 % Normal (applies to [facility] non-numeric (Dante results) Medical Service) FREE T4 1.9 Normal (applies to [facility] INDEX (T7) non-numeric (Jonny results) Medical Service) T3,TOTAL 90 ng/dL Normal (applies to [facility] non-numeric (Jonny results) Medical Service) ID Date Data Source [id number] 05/25/2017 12:00:00 AM EDT [facility] ([facility]) Name Value Range Interpretation Description Data Sup porting Code Source(s) Document(s ) VITAMIN 26 ng/mL Below low normal MEDGEN D,25-OH,TOTA ([place]ante L,[place] Medical Service) ID Date Data Source [id number] 05/25/2017 12:00:00 AM EDT [facility] ([facility]) Name Value Range Interpretation Description Data Sup porting Code Source(s) Document(s ) Hemoglobin 6.2 % of Above high normal MEDGEN A1c/Hemoglobin total Hgb (Jonny .total in Medical Blood Service) ID Date Data Source [id number] 05/25/2017 12:00:00 AM EDT [facility] ([facility]) Name Value Range Interpretation Code Description Data Rafaela rce(s) Supporting Document(s ) FOLATE,SER >24.0 Normal (applies to MEDGEN UM non-numeric results) (Dante Medical Service) ID Date Data Source [id number] 05/25/2017 12:00:00 AM EDT [facility] ([facility]) Name Value Range Interpretation Description Data Sup porting Code Source(s) Document(s ) VITAMIN B12 423 pg/mL Normal (applies to MED[facility] non-numeric (Jonny results) Medical Service) ID Date Data Source [id number] 05/25/2017 12:00:00 AM EDT [facility] ([facility]) Name Value Range Interpretation Description Data Sup porting Code Source(s) Document(s ) WBC 8.4 Normal (applies MEDGEN Thous/mc to non-numeric (Jonny L results) Medical Service) RBC 4.49 Normal (applies MEDGEN Mill/mcL to non-numeric (Dante results) Medical Service) Hemoglobin 13.4 Normal (applies [facility] [Mass/volume] in g/dL to non-numeric ([place] [facility] Mixed venous results) Medical blood by Service) Oximetry Hematocrit [Pure 41.3 % Normal (applies MEDGEN volume fraction] to non-numeric ([place] of Blood by results) Medical Automated count Service) MCV 92.2 fL Normal (applies MEDGEN to non-numeric (Dante results) Medical Service) MCHC 32.4 Normal (applies MEDGEN g/dL to non-numeric (Dante results) Medical Service) MCH 29.8 pg Normal (applies MEDGEN to non-numeric (Jonny results) Medical Service) RDW 14.1 % Normal (applies MEDGEN to non-numeric (Dante results) Medical Service) PLATELET COUNT 309 Normal (applies MEDGEN Thous/mc to non-numeric (Jonny L results) Medical Service) MPV 11.2 fL Normal (applies [facility] to non-numeric (Dante results) Medical Service) TOTAL 58.2 % Normal (applies [facility]GEN NEUTROPHILS,% to non-numeric (Jonny results) Medical Service) TOTAL 30.9 % Normal (applies [facility] LYMPHOCYTES,% to non-numeric (Jonny results) Medical Service) MONOCYTES,% 7.0 % Normal (applies [facility] to non-numeric (Dante results) Medical Service) BASOPHILS,% 0.6 % Normal (applies [facility] to non-numeric (Dante results) Medical Service) EOSINOPHILS,% 3.3 % Normal (applies [facility] to non-numeric (Jonny results) Medical Service) NEUTROPHILS,ABSO 4889 Normal (applies MEDGEN LUTE Cells/mc to non-numeric (Jonny L results) Medical Service) LYMPHOCYTES,ABSO 2596 Normal (applies [facility] LUTE Cells/mc to non-numeric (Dante L results) Medical Service) MONOCYTES,ABSOLU 588 Normal (applies MEDGEN TE Cells/mc to non-numeric (Dante L results) Medical Service) EOSINOPHILS,ABSO 277 Normal (applies MEDGEN LUTE Cells/mc to non-numeric (Jonny L results) Medical Service) BASOPHILS,ABSOLU 50 Normal (applies MEDGEN TE Cells/mc to non-numeric (Jonny L results) Medical Service) DIFFERENTIAL Normal (applies [facility] to non-numeric (Dante results) Medical Service) ID Date Data Source [id number] 05/25/2017 12:00:00 AM EDT [facility] ([facility]) Name Value Range Interpretation Description Data Sup porting Code Source(s) Document(s ) CHOLESTEROL,TOTA 200 Normal (applies MEDGEN L mg/dL to non-numeric (Jonny results) Medical Service) CHOLESTEROL/HDL 3.4 Normal (applies [facility] RATIO to non-numeric (Dante results) Medical Service) HDL CHOLESTEROL 59 mg/dL Normal (applies [facility] to non-numeric (Jonny results) Medical Service) LDL CHOL, 115 Normal (applies [facility]GEN CALCULATED mg/dL to non-numeric (Dante results) Medical Service) TRIGLYCERIDES 129 Normal (applies [facility] mg/dL to non-numeric (Dante results) Medical Service) NON HDL 141 Normal (applies [facility]GEN CHOLESTEROL mg/dL to non-numeric (Jonny results) Medical Service) ID Date Data Source [id number] 05/25/2017 12:00:00 AM EDT [facility] ([facility]) Name Value Range Interpretation Code Description Data Rafaela rce(s) Supporting Document(s ) URIC ACID 3.9 mg/dL Normal (applies to MEDGEN non-numeric (Jonny results) Medical Service) ID Date Data Source [id number] 05/25/2017 12:00:00 AM EDT [facility] ([facility]) Name Value Range Interpretation Description Data Sup porting Code Source(s) Document(s ) Sodium 138 Normal (applies [facility] [Moles/volume] mmol/L to non-numeric (Dante in Serum, Plasma results) Medical or Blood Service) Glucose 91 mg/dL Normal (applies [facility] [Mass/volume] in to non-numeric ([place] Urine collected results) Medical for unspecified Service) duration Potassium 4.4 Normal (applies [facility] [Mass/volume] in mmol/L to non-numeric ([place] Blood results) Medical Service) Chloride 100 Normal (applies [facility] [Moles/volume] mmol/L to non-numeric (Jonny in Serum, Plasma results) Medical or Blood Service) Carbon dioxide 24 Normal (applies [facility] [VFr/PPres] in mmol/L to non-numeric (Dante Gas delivery results) Medical system Service) Urea nitrogen 14 mg/dL Normal (applies [facility] [Moles/volume] to non-numeric (Jonny in Blood results) Medical Service) Creatinine 0.83 Normal (applies [facility] [Interpretation] mg/dL to non-numeric ([place] in Urine results) Medical Service) BUN/CREATININE NOTE Normal (applies [facility]GEN RATIO to non-numeric (Dante results) Medical Service) PROTEIN, TOTAL 7.5 g/dL Normal (applies [facility]GEN to non-numeric (Dante results) Medical Service) Calcium 9.8 Normal (applies [facility] [Moles/volume] mg/dL to non-numeric (Jonny in Urine results) Medical collected for Service) unspecified duration Microalbumin 4.3 g/dL Normal (applies [facility] [Mass/time] in to non-numeric (Jonny Urine collected results) Medical for unspecified Service) duration Globulin 3.2 g/dL Normal (applies [facility] [Mass/time] in (calc) to non-numeric (Dante 24 hour Urine results) Medical Service) BILIRUBIN,TOTAL 0.4 Normal (applies [facility]GEN mg/dL to non-numeric (Jonny results) Medical Service) ALBUMIN/GLOBULIN 1.3 Normal (applies [facility]GEN RATIO (calc) to non-numeric (Dante results) Medical Service) Alkaline 86 U/L Normal (applies MEDGEN phosphatase to non-numeric (Jonny [Enzymatic results) Medical activity/volume] Service) in Serum, Plasma or Blood AST 21 U/L Normal (applies [facility] to non-numeric (Jonny results) Medical Service) EGFR NON AFR 71 Normal (applies [facility] [place] mL/min/1 to non-numeric (Dante .73m2 results) Medical Service) ALT 16 U/L Normal (applies [facility] to non-numeric (Dante results) Medical Service) EGFR 83 Normal (applies [facility] [place] mL/min/1 to non-numeric (Jonny .73m2 results) Medical Service) ID Date Data Source [id number] 05/25/2017 12:00:00 AM EDT [facility] ([facility]) Name Value Range Interpretation Code Description Data Rafaela rce(s) Supporting Document(s ) ID Date Data Source [id number] 05/25/2017 12:00:00 AM EDT [facility] ([facility] Service) Name Value Range Interpretation Description Data Sup porting Code Source(s) Document(s ) TSH 2.36 mIU/L Normal (applies to MEDGEN non-numeric (Jonny results) Medical Service) T4 6.1 mcg/dL Normal (applies to MEDGEN (THYROXINE) non-numeric (Dante , TOTAL results) Medical Service) T3 UPTAKE 31 % Normal (applies to MEDGEN non-numeric (Jonny results) Medical Service) FREE T4 1.9 Normal (applies to MEDGEN INDEX (T7) non-numeric (Jonny results) Medical Service) T3,TOTAL 90 ng/dL Normal (applies to MEDGEN non-numeric (Jonny results) Medical Service) ID Date Data Source [id number] 05/25/2017 12:00:00 AM EDT [facility] ([facility]) Name Value Range Interpretation Description Data Sup porting Code Source(s) Document(s ) VITAMIN 26 ng/mL Below low normal MEDGEN D,25-OH,TOTA (Dante L,[place] Medical Service) ID Date Data Source [id number] 05/25/2017 12:00:00 AM EDT [facility] ([facility]) Name Value Range Interpretation Description Data Sup porting Code Source(s) Document(s ) Hemoglobin 6.2 % of Above high normal MEDGEN A1c/Hemoglobin total Hgb (Dante .total in Medical Blood Service) ID Date Data Source [id number] 05/25/2017 12:00:00 AM EDT [facility] ([facility]) Name Value Range Interpretation Code Description Data Rafaela rce(s) Supporting Document(s ) FOLATE,SER >24.0 Normal (applies to MEDGEN UM non-numeric results) (Dante Medical Service) ID Date Data Source [id number] 05/25/2017 12:00:00 AM EDT [facility] ([facility]) Name Value Range Interpretation Description Data Sup porting Code Source(s) Document(s ) VITAMIN B12 423 pg/mL Normal (applies to MEDGEN non-numeric (Jonny results) Medical Service) ID Date Data Source [id number] 05/25/2017 12:00:00 AM EDT [facility] ([facility]) Name Value Range Interpretation Description Data Sup porting Code Source(s) Document(s ) WBC 8.4 Normal (applies MEDGEN Thous/mc to non-numeric (Jonny L results) Medical Service) RBC 4.49 Normal (applies MEDGEN Mill/mcL to non-numeric (Dante results) Medical Service) Hemoglobin 13.4 Normal (applies [facility] [Mass/volume] in g/dL to [facility] Medical blood by Service) Oximetry MCV 92.2 fL Normal (applies MEDGEN to non-numeric (Jonny results) Medical Service) Hematocrit [Pure 41.3 % Normal (applies MEDGEN volume fraction] to non-numeric ([place] of Blood by results) Medical Automated count Service) MCH 29.8 pg Normal (applies MEDGEN to non-numeric (Jonny results) Medical Service) MCHC 32.4 Normal (applies MEDGEN g/dL to non-numeric (Jonny results) Medical Service) PLATELET COUNT 309 Normal (applies MEDGEN Thous/mc to non-numeric (Jonny L results) Medical Service) RDW 14.1 % Normal (applies MEDGEN to non-numeric (Dante results) Medical Service) MPV 11.2 fL Normal (applies MEDGEN to non-numeric (Jonny results) Medical Service) TOTAL 58.2 % Normal (applies MEDGEN NEUTROPHILS,% to non-numeric (Jonny results) Medical Service) TOTAL 30.9 % Normal (applies MEDGEN LYMPHOCYTES,% to non-numeric (Dante results) Medical Service) MONOCYTES,% 7.0 % Normal (applies MEDGEN to non-numeric (Jnony results) Medical Service) EOSINOPHILS,% 3.3 % Normal (applies MEDGEN to non-numeric (Dante results) Medical Service) BASOPHILS,% 0.6 % Normal (applies MEDGEN to non-numeric (Jonny results) Medical Service) NEUTROPHILS,ABSO 4889 Normal (applies MEDGEN LUTE Cells/mc to non-numeric (Jonny L results) Medical Service) LYMPHOCYTES,ABSO 2596 Normal (applies MEDGEN LUTE Cells/mc to non-numeric (Jonny L results) Medical Service) MONOCYTES,ABSOLU 588 Normal (applies MEDGEN TE Cells/mc to non-numeric (Dante L results) Medical Service) BASOPHILS,ABSOLU 50 Normal (applies MEDGEN TE Cells/mc to non-numeric (Jonny L results) Medical Service) EOSINOPHILS,ABSO 277 Normal (applies MEDGEN LUTE Cells/mc to non-numeric (Jonny L results) Medical Service) DIFFERENTIAL Normal (applies MEDGEN to non-numeric (Dante results) Medical Service) ID Date Data Source [id number] 05/25/2017 12:00:00 AM EDT [place] [facility] [facility]) Name Value Range Interpretation Description Data Sup porting Code Source(s) Document(s ) CHOLESTEROL,TOTA 200 Normal (applies MEDGEN L mg/dL to non-numeric (Jonny results) Medical Service) HDL CHOLESTEROL 59 mg/dL Normal (applies MEDGEN to non-numeric (Dante results) Medical Service) CHOLESTEROL/HDL 3.4 Normal (applies MEDGEN RATIO to non-numeric (Dante results) Medical Service) LDL CHOL, 115 Normal (applies MEDGEN CALCULATED mg/dL to non-numeric (Dante results) Medical Service) TRIGLYCERIDES 129 Normal (applies MEDGEN mg/dL to non-numeric (Dante results) Medical Service) NON HDL 141 Normal (applies MEDGEN CHOLESTEROL mg/dL to non-numeric (Jonny results) Medical Service) ID Date Data Source [id number] 05/25/2017 12:00:00 AM EDT [facility] [place] [facility] [facility]) Name Value Range Interpretation Code Description Data Rafaela rce(s) Supporting Document(s ) URIC ACID 3.9 mg/dL Normal (applies to MED[facility] non-numeric (Jonny results) Medical Service) ID Date Data Source [id number] 05/25/2017 12:00:00 AM EDT [facility] ([facility]) Name Value Range Interpretation Description Data Sup porting Code Source(s) Document(s ) Sodium 138 Normal (applies MEDGEN [Moles/volume] mmol/L to non-numeric (Jonny in Serum, Plasma results) Medical or Blood Service) Glucose 91 mg/dL Normal (applies [facility]GEN [Mass/volume] in to non-numeric ([place] [facility] Urine collected results) Medical for unspecified Service) duration Potassium 4.4 Normal (applies [facility]GEN [Mass/volume] in mmol/L to non-numeric ([place] [facility] Blood results) Medical Service) Chloride 100 Normal (applies MEDGEN [Moles/volume] mmol/L to non-numeric (Jonny in Serum, Plasma results) Medical or Blood Service) Carbon dioxide 24 Normal (applies [facility]GEN [VFr/PPres] in mmol/L to non-numeric (Jonny Gas delivery results) Medical system Service) Urea nitrogen 14 mg/dL Normal (applies MEDGEN [Moles/volume] to non-numeric (Dante in Blood results) Medical Service) Creatinine 0.83 Normal (applies MEDGEN [Interpretation] mg/dL to non-numeric ([place] in Urine results) Medical Service) Calcium 9.8 Normal (applies MEDGEN [Moles/volume] mg/dL to non-numeric (Jonny in Urine results) Medical collected for Service) unspecified duration BUN/CREATININE NOTE Normal (applies MEDGEN RATIO to non-numeric (Dante results) Medical Service) PROTEIN, TOTAL 7.5 g/dL Normal (applies MEDGEN to non-numeric (Dante results) Medical Service) Microalbumin 4.3 g/dL Normal (applies MEDGEN [Mass/time] in to non-numeric (Jonny Urine collected results) Medical for unspecified Service) duration ALBUMIN/GLOBULIN 1.3 Normal (applies MEDGEN RATIO (calc) to non-numeric (Dante results) Medical Service) Globulin 3.2 g/dL Normal (applies [facility] [Mass/time] in (calc) to non-numeric (Jonny 24 hour Urine results) Medical Service) BILIRUBIN,TOTAL 0.4 Normal (applies MEDGEN mg/dL to non-numeric (Jonny results) Medical Service) Alkaline 86 U/L Normal (applies MEDGEN phosphatase to non-numeric (Jonny [Enzymatic results) Medical activity/volume] Service) in Serum, Plasma or Blood AST 21 U/L Normal (applies MEDGEN to non-numeric (Jonny results) Medical Service) ALT 16 U/L Normal (applies MEDGEN to non-numeric (Jonny results) Medical Service) EGFR NON AFR 71 Normal (applies MEDGEN [place] mL/min/1 to non-numeric (Dante .73m2 results) Medical Service) EGFR 83 Normal (applies MEDGEN [place] mL/min/1 to non-numeric (Dante .73m2 results) Medical Service) ID Date Data Source [id number] 05/25/2017 12:00:00 AM EDT [facility] ([facility]) Name Value Range Interpretation Code Description Data Rafaela rce(s) Supporting Document(s ) ID Date Data Source [id number] 05/25/2017 12:00:00 AM EDT [facility] ([facility]) Name Value Range Interpretation Description Data Sup porting Code Source(s) Document(s ) TSH 2.36 mIU/L Normal (applies to MEDGEN non-numeric (Jonny results) Medical Service) T4 6.1 mcg/dL Normal (applies to MEDGEN (THYROXINE) non-numeric (Jonny , TOTAL results) Medical Service) T3 UPTAKE 31 % Normal (applies to MEDGEN non-numeric (Dante results) Medical Service) FREE T4 1.9 Normal (applies to MEDGEN INDEX (T7) non-numeric (Dante results) Medical Service) T3,TOTAL 90 ng/dL Normal (applies to MEDGEN non-numeric (Dante results) Medical Service) ID Date Data Source [id number] 05/25/2017 12:00:00 AM EDT [facility] ([facility]) Name Value Range Interpretation Description Data Sup porting Code Source(s) Document(s ) VITAMIN 26 ng/mL Below low normal MEDGEN D,25-OH,TOTA (Jonny L,[place] Medical Service) ID Date Data Source [id number] 05/25/2017 12:00:00 AM EDT [facility] ([facility]) Name Value Range Interpretation Description Data Sup porting Code Source(s) Document(s ) VITAMIN 26 ng/mL Below low normal MEDGEN D,25-OH,TOTA (Dante L,[place] Medical Service) ID Date Data Source [id number] 05/25/2017 12:00:00 AM EDT [facility] ([facility]) Name Value Range Interpretation Description Data Sup porting Code Source(s) Document(s ) Hemoglobin 6.2 % of Above high normal MEDGEN A1c/Hemoglobin total Hgb (Dante .total in Medical Blood Service) ID Date Data Source [id number] 05/25/2017 12:00:00 AM EDT [facility] ([facility]) Name Value Range Interpretation Code Description Data Rafaela rce(s) Supporting Document(s ) FOLATE,SER >24.0 Normal (applies to MEDGEN UM non-numeric results) (Dante Medical Service) ID Date Data Source [id number] 05/25/2017 12:00:00 AM EDT [facility] ([facility]) Name Value Range Interpretation Description Data Sup porting Code Source(s) Document(s ) VITAMIN B12 423 pg/mL Normal (applies to MEDGEN non-numeric (Jonny results) Medical Service) ID Date Data Source [id number] 05/25/2017 12:00:00 AM EDT [facility] ([facility]) Name Value Range Interpretation Description Data Sup porting Code Source(s) Document(s ) WBC 8.4 Normal (applies MEDGEN Thous/mc to non-numeric (Jonny L results) Medical Service) RBC 4.49 Normal (applies MEDGEN Mill/mcL to non-numeric (Jonny results) Medical Service) Hemoglobin 13.4 Normal (applies MEDGEN [Mass/volume] in g/dL to non-numeric ([place] Mixed venous results) Medical blood by Service) Oximetry MCV 92.2 fL Normal (applies MEDGEN to non-numeric (Jonny results) Medical Service) Hematocrit [Pure 41.3 % Normal (applies MEDGEN volume fraction] to non-numeric ([place] of Blood by results) Medical Automated count Service) MCH 29.8 pg Normal (applies MEDGEN to non-numeric (Jonny results) Medical Service) RDW 14.1 % Normal (applies MEDGEN to non-numeric (Jonny results) Medical Service) MCHC 32.4 Normal (applies MEDGEN g/dL to non-numeric (Dante results) Medical Service) PLATELET COUNT 309 Normal (applies MEDGEN Thous/mc to non-numeric (Dante L results) Medical Service) MPV 11.2 fL Normal (applies MEDGEN to non-numeric (Jonny results) Medical Service) TOTAL 58.2 % Normal (applies MEDGEN NEUTROPHILS,% to non-numeric (Jonny results) Medical Service) TOTAL 30.9 % Normal (applies MEDGEN LYMPHOCYTES,% to non-numeric (Dante results) Medical Service) EOSINOPHILS,% 3.3 % Normal (applies MEDGEN to non-numeric (Dante results) Medical Service) MONOCYTES,% 7.0 % Normal (applies MEDGEN to non-numeric (Jonny results) Medical Service) BASOPHILS,% 0.6 % Normal (applies MEDGEN to non-numeric (Jonny results) Medical Service) LYMPHOCYTES,ABSO 2596 Normal (applies MEDGEN LUTE Cells/mc to non-numeric (Jonny L results) Medical Service) NEUTROPHILS,ABSO 4889 Normal (applies MEDGEN LUTE Cells/mc to non-numeric (Dante L results) Medical Service) MONOCYTES,ABSOLU 588 Normal (applies MEDGEN TE Cells/mc to non-numeric (Jonny L results) Medical Service) EOSINOPHILS,ABSO 277 Normal (applies MEDGEN LUTE Cells/mc to non-numeric (Dante L results) Medical Service) BASOPHILS,ABSOLU 50 Normal (applies MEDGEN TE Cells/mc to non-numeric (Jonny L results) Medical Service) DIFFERENTIAL Normal (applies MEDGEN to non-numeric (Jonny results) Medical Service) ID Date Data Source [id number] 05/25/2017 12:00:00 AM EDT [facility] ([facility]) Name Value Range Interpretation Description Data Sup porting Code Source(s) Document(s ) CHOLESTEROL,TOTA 200 Normal (applies MEDGEN L mg/dL to non-numeric (Jonny results) Medical Service) HDL CHOLESTEROL 59 mg/dL Normal (applies MEDGEN to non-numeric (Jonny results) Medical Service) CHOLESTEROL/HDL 3.4 Normal (applies MEDGEN RATIO to non-numeric (Dante results) Medical Service) LDL CHOL, 115 Normal (applies MEDGEN CALCULATED mg/dL to non-numeric (Dante results) Medical Service) NON HDL 141 Normal (applies MEDGEN CHOLESTEROL mg/dL to non-numeric (Jonny results) Medical Service) TRIGLYCERIDES 129 Normal (applies MEDGEN mg/dL to non-numeric (Dante results) Medical Service) ID Date Data Source [id number] 05/25/2017 12:00:00 AM EDT [facility] ([facility]) Name Value Range Interpretation Code Description Data Rafaela rce(s) Supporting Document(s ) URIC ACID 3.9 mg/dL Normal (applies to MEDGEN non-numeric (Dante results) Medical Service) ID Date Data Source [id number] 05/25/2017 12:00:00 AM EDT [facility] ([facility]) Name Value Range Interpretation Description Data Sup porting Code Source(s) Document(s ) Glucose 91 mg/dL Normal (applies MEDGEN [Mass/volume] in to non-numeric ([place] [facility] Urine collected results) Medical for unspecified Service) duration Sodium 138 Normal (applies MEDGEN [Moles/volume] mmol/L to non-numeric (Jonny in Serum, Plasma results) Medical or Blood Service) Potassium 4.4 Normal (applies MEDGEN [Mass/volume] in mmol/L to non-numeric ([place] Blood results) Medical Service) Chloride 100 Normal (applies [facility]GEN [Moles/volume] mmol/L to non-numeric (Jonny in Serum, Plasma results) Medical or Blood Service) Carbon dioxide 24 Normal (applies MEDGEN [VFr/PPres] in mmol/L to non-numeric (Jonny Gas delivery results) Medical system Service) Urea nitrogen 14 mg/dL Normal (applies MEDGEN [Moles/volume] to non-numeric (Dante in Blood results) Medical Service) Creatinine 0.83 Normal (applies [facility]GEN [Interpretation] mg/dL to non-numeric ([place] in Urine results) Medical Service) BUN/CREATININE NOTE Normal (applies MEDGEN RATIO to non-numeric (Dante results) Medical Service) Calcium 9.8 Normal (applies [facility]GEN [Moles/volume] mg/dL to non-numeric (Jonny in Urine results) Medical collected for Service) unspecified duration Microalbumin 4.3 g/dL Normal (applies [facility]GEN [Mass/time] in to non-numeric (Jonny Urine collected results) Medical for unspecified Service) duration PROTEIN, TOTAL 7.5 g/dL Normal (applies MEDGEN to non-numeric (Jonny results) Medical Service) Globulin 3.2 g/dL Normal (applies [facility]GEN [Mass/time] in (calc) to non-numeric (Jonny 24 hour Urine results) Medical Service) BILIRUBIN,TOTAL 0.4 Normal (applies MEDGEN mg/dL to non-numeric (Dante results) Medical Service) ALBUMIN/GLOBULIN 1.3 Normal (applies [facility]GEN RATIO (calc) to non-numeric (Dante results) Medical Service) Alkaline 86 U/L Normal (applies MEDGEN phosphatase to non-numeric (Dante [Enzymatic results) Medical activity/volume] Service) in Serum, Plasma or Blood AST 21 U/L Normal (applies MEDGEN to non-numeric (Dante results) Medical Service) ALT 16 U/L Normal (applies [facility]GEN to non-numeric (Jonny results) Medical Service) EGFR NON AFR 71 Normal (applies [facility]GEN [place] mL/min/1 to non-numeric (Dante .73m2 results) Medical Service) EGFR 83 Normal (applies [facility]GEN [place] mL/min/1 to non-numeric (Dante .73m2 results) Medical Service) ID Date Data Source [id number] 05/25/2017 12:00:00 AM EDT [facility] ([facility] Service) Name Value Range Interpretation Code Description Data Rafaela rce(s) Supporting Document(s ) ID Date Data Source [id number] 05/25/2017 12:00:00 AM EDT [facility] ([facility] Medical Service) Name Value Range Interpretation Description Data Sup porting Code Source(s) Document(s ) TSH 2.36 mIU/L Normal (applies to MEDGEN non-numeric (Jonny results) Medical Service) T4 6.1 mcg/dL Normal (applies to MEDGEN (THYROXINE) non-numeric (Dante , TOTAL results) Medical Service) T3 UPTAKE 31 % Normal (applies to MEDGEN non-numeric (Jonny results) Medical Service) FREE T4 1.9 Normal (applies to MEDGEN INDEX (T7) non-numeric (Dante results) Medical Service) T3,TOTAL 90 ng/dL Normal (applies to MEDGEN non-numeric (Dante results) Medical Service) ID Date Data Source [id number] 12/23/2016 12:00:00 AM EST [facility] ([facility] Service) Name Value Range Interpretation Description Data Sup porting Code Source(s) Document(s ) VITAMIN 20 ng/mL Below low normal MEDGEN D,25-OH,TOTA (Dante L,[place] Medical Service) ID Date Data Source [id number] 12/23/2016 12:00:00 AM EST [facility] ([facility] Service) Name Value Range Interpretation Description Data Sup porting Code Source(s) Document(s ) Hemoglobin 6.6 % of Above high normal MEDGEN A1c/Hemoglobin total Hgb (Dante .total in Medical Blood Service) ID Date Data Source [id number] 12/23/2016 12:00:00 AM EST [facility] ([facility] Service) Name Value Range Interpretation Code Description Data Rafaela rce(s) Supporting Document(s ) FOLATE,SE 9.0 ng/mL Normal (applies to MEDGEN RUM non-numeric (Dante results) Medical Service) ID Date Data Source [id number] 12/23/2016 12:00:00 AM EST [facility] ([facility]) Name Value Range Interpretation Description Data Sup porting Code Source(s) Document(s ) VITAMIN 20 ng/mL Below low normal MEDGEN D,25-OH,TOTA ([facility],[place] Medical Service) ID Date Data Source [id number] 12/23/2016 12:00:00 AM EST [facility] ([facility]) Name Value Range Interpretation Description Data Sup porting Code Source(s) Document(s ) Hemoglobin 6.6 % of Above high normal MEDGEN A1c/Hemoglobin total Hgb [facility] ID Date Data Source [id number] 12/23/2016 12:00:00 AM EST [facility] ([facility]) Name Value Range Interpretation Code Description Data Rafaela rce(s) Supporting Document(s ) FOLATE,SE 9.0 ng/mL Normal (applies to MEDGEN RUM non-numeric (Dante results) Medical Service) ID Date Data Source [id number] 12/23/2016 12:00:00 AM EST [facility] ([facility]) Name Value Range Interpretation Description Data Sup porting Code Source(s) Document(s ) VITAMIN B12 444 pg/mL Normal (applies to MEDGEN non-numeric (Dante results) Medical Service) ID Date Data Source [id number] 12/23/2016 12:00:00 AM EST [facility] ([facility]) Name Value Range Interpretation Description Data Sup porting Code Source(s) Document(s ) WBC 8.8 Normal (applies MEDGEN Thous/mc to non-numeric (Dante L results) Medical Service) RBC 4.56 Normal (applies MEDGEN Mill/mcL to non-numeric (Dante results) Medical Service) Hemoglobin 13.5 Normal (applies [facility] [Mass/volume] in g/dL to [facility] Medical blood by Service) Oximetry Hematocrit [Pure 41.5 % Normal (applies MEDGEN volume fraction] to non-numeric ([place] of Blood by results) Medical Automated count Service) MCV 91.1 fL Normal (applies MEDGEN to non-numeric (Dante results) Medical Service) MCH 29.5 pg Normal (applies MEDGEN to non-numeric (Dante results) Medical Service) MCHC 32.4 Normal (applies MEDGEN g/dL to non-numeric (Dante results) Medical Service) RDW 13.9 % Normal (applies MEDGEN to non-numeric (Dante results) Medical Service) PLATELET COUNT 283 Normal (applies MEDGEN Thous/mc to non-numeric (Dante L results) Medical Service) MPV 11.4 fL Normal (applies MEDGEN to non-numeric (Dante results) Medical Service) TOTAL 63.7 % Normal (applies MEDGEN NEUTROPHILS,% to non-numeric (Dante results) Medical Service) TOTAL 25.0 % Normal (applies [facility]GEN LYMPHOCYTES,% to non-numeric (Dante results) Medical Service) MONOCYTES,% 7.4 % Normal (applies MEDGEN to non-numeric (Jonny results) Medical Service) EOSINOPHILS,% 3.4 % Normal (applies MEDGEN to non-numeric (Jonny results) Medical Service) BASOPHILS,% 0.5 % Normal (applies MEDGEN to non-numeric (Dante results) Medical Service) NEUTROPHILS,ABSO 5606 Normal (applies MEDGEN LUTE Cells/mc to non-numeric (Dante L results) Medical Service) LYMPHOCYTES,ABSO 2200 Normal (applies MEDGEN LUTE Cells/mc to non-numeric (Jonny L results) Medical Service) MONOCYTES,ABSOLU 651 Normal (applies MEDGEN TE Cells/mc to non-numeric (Jonny L results) Medical Service) EOSINOPHILS,ABSO 299 Normal (applies MEDGEN LUTE Cells/mc to non-numeric (Dante L results) Medical Service) BASOPHILS,ABSOLU 44 Normal (applies MEDGEN TE Cells/mc to non-numeric (Dante L results) Medical Service) DIFFERENTIAL Normal (applies MEDGEN to non-numeric (Jonny results) Medical Service) ID Date Data Source [id number] 12/23/2016 12:00:00 AM EST [facility]GEN ([facility] Medical Service) Name Value Range Interpretation Description Data Sup porting Code Source(s) Document(s ) CHOLESTEROL,TOTA 149 Normal (applies MEDGEN L mg/dL to non-numeric (Jonny results) Medical Service) HDL CHOLESTEROL 50 mg/dL Normal (applies MEDGEN to non-numeric (Dante results) Medical Service) CHOLESTEROL/HDL 3.0 Normal (applies MEDGEN RATIO to non-numeric (Jonny results) Medical Service) LDL CHOL, 81 mg/dL Normal (applies MEDGEN CALCULATED to non-numeric (Dante results) Medical Service) TRIGLYCERIDES 88 mg/dL Normal (applies MEDGEN to non-numeric (Jonny results) Medical Service) NON HDL 99 mg/dL Normal (applies MEDGEN CHOLESTEROL to non-numeric (Dante results) Medical Service) ID Date Data Source [id number] 12/23/2016 12:00:00 AM EST [facility] ([facility] Service) Name Value Range Interpretation Code Description Data Rafaela rce(s) Supporting Document(s ) URIC ACID 3.5 mg/dL Normal (applies to MEDGEN non-numeric (Dante results) Medical Service) ID Date Data Source [id number] 12/23/2016 12:00:00 AM EST [facility] ([facility] Medical Service) Name Value Range Interpretation Description Data Sup porting Code Source(s) Document(s ) Glucose 102 Normal (applies MEDGEN [Mass/volume] in mg/dL to non-numeric ([place] Urine collected results) Medical for unspecified Service) duration Sodium 140 Normal (applies MEDGEN [Moles/volume] mmol/L to non-numeric (Dante in Serum, Plasma results) Medical or Blood Service) Chloride 105 Normal (applies MEDGEN [Moles/volume] mmol/L to non-numeric (Jonny in Serum, Plasma results) Medical or Blood Service) Potassium 4.5 Normal (applies MEDGEN [Mass/volume] in mmol/L to non-numeric ([place] Blood results) Medical Service) Carbon dioxide 24 Normal (applies MEDGEN [VFr/PPres] in mmol/L to non-numeric (Dante Gas delivery results) Medical system Service) Urea nitrogen 13 mg/dL Normal (applies MEDGEN [Moles/volume] to non-numeric (Dante in Blood results) Medical Service) Creatinine 1.02 Above high normal MEDGEN [Interpretation] mg/dL (Dante in Urine Medical Service) BUN/CREATININE 13 Normal (applies MEDGEN RATIO (calc) to non-numeric (Jonny results) Medical Service) Calcium 9.6 Normal (applies MEDGEN [Moles/volume] mg/dL to non-numeric (Jonny in Urine results) Medical collected for Service) unspecified duration PROTEIN, TOTAL 7.5 g/dL Normal (applies MEDGEN to non-numeric (Jonny results) Medical Service) Microalbumin 4.3 g/dL Normal (applies MEDGEN [Mass/time] in to non-numeric (Dante Urine collected results) Medical for unspecified Service) duration Globulin 3.2 g/dL Normal (applies MEDGEN [Mass/time] in (calc) to non-numeric (Dante 24 hour Urine results) Medical Service) ALBUMIN/GLOBULIN 1.3 Normal (applies MEDGEN RATIO (calc) to non-numeric (Dante results) Medical Service) BILIRUBIN,TOTAL 0.3 Normal (applies MEDGEN mg/dL to non-numeric (Dante results) Medical Service) Alkaline 82 U/L Normal (applies MEDGEN phosphatase to non-numeric (Dante [Enzymatic results) Medical activity/volume] Service) in Serum, Plasma or Blood AST 15 U/L Normal (applies MEDGEN to non-numeric (Dante results) Medical Service) ALT 12 U/L Normal (applies MEDGEN to non-numeric (Dante results) Medical Service) EGFR NON AFR 56 Below low normal MEDGEN [place] mL/min/1 (Dante .73m2 Medical Service) EGFR 65 Normal (applies [facility]GEN [place] mL/min/1 to non-numeric (Jonny .73m2 results) Medical Service) ID Date Data Source [id number] 12/23/2016 12:00:00 AM EST [facility] ([facility] Medical Service) Name Value Range Interpretation Description Data Sup porting Code Source(s) Document(s ) TSH 2.51 mIU/L Normal (applies to MEDGEN non-numeric (Dante results) Medical Service) T4 6.2 mcg/dL Normal (applies to MEDGEN (THYROXINE) non-numeric (Jonny , TOTAL results) Medical Service) FREE T4 2.0 Normal (applies to MEDGEN INDEX (T7) non-numeric (Dante results) Medical Service) T3 UPTAKE 33 % Normal (applies to MEDGEN non-numeric (Dante results) Medical Service) T3,TOTAL 85 ng/dL Normal (applies to MEDGEN non-numeric (Dante results) Medical Service) ID Date Data Source [id number] 12/23/2016 12:00:00 AM EST [facility] ([facility] [employer] [facility]) Name Value Range Interpretation Description Data Sup porting Code Source(s) Document(s ) VITAMIN 20 ng/mL Below low normal MEDGEN D,25-OH,TOTA (Jonny L,[place] Medical Service) ID Date Data Source [id number] 12/23/2016 12:00:00 AM EST [facility] ([facility]) Name Value Range Interpretation Description Data Sup porting Code Source(s) Document(s ) Hemoglobin 6.6 % of Above high normal MEDGEN A1c/Hemoglobin total Hgb (Dante .total in Medical Blood Service) ID Date Data Source [id number] 12/23/2016 12:00:00 AM EST [facility] ([facility]) Name Value Range Interpretation Code Description Data Rafaela rce(s) Supporting Document(s ) FOLATE,SE 9.0 ng/mL Normal (applies to MEDGEN RUM non-numeric (Dante results) Medical Service) ID Date Data Source [id number] 12/23/2016 12:00:00 AM EST [facility] ([facility]) Name Value Range Interpretation Description Data Sup porting Code Source(s) Document(s ) VITAMIN B12 444 pg/mL Normal (applies to MEDGEN non-numeric (Dante results) Medical Service) ID Date Data Source [id number] 12/23/2016 12:00:00 AM EST [facility] ([facility]) Name Value Range Interpretation Description Data Sup porting Code Source(s) Document(s ) WBC 8.8 Normal (applies MEDGEN Thous/mc to non-numeric ([facility] results) Medical Service) RBC 4.56 Normal (applies MEDGEN Mill/mcL to non-numeric (Dante results) Medical Service) Hemoglobin 13.5 Normal (applies MEDGEN [Mass/volume] in g/dL to non-numeric ([facility] y Mixed venous results) Medical blood by Service) Oximetry Hematocrit [Pure 41.5 % Normal (applies MEDGEN volume fraction] to non-numeric ([facility] y of Blood by results) Medical Automated count Service) MCV 91.1 fL Normal (applies MEDGEN to non-numeric (Dante results) Medical Service) MCH 29.5 pg Normal (applies MEDGEN to non-numeric (Dante results) Medical Service) MCHC 32.4 Normal (applies MEDGEN g/dL to non-numeric (Dante results) Medical Service) RDW 13.9 % Normal (applies MEDGEN to non-numeric (Dante results) Medical Service) PLATELET COUNT 283 Normal (applies MEDGEN Thous/mc to non-numeric (Dante L results) Medical Service) MPV 11.4 fL Normal (applies MEDGEN to non-numeric (Jonny results) Medical Service) TOTAL 63.7 % Normal (applies MEDGEN NEUTROPHILS,% to non-numeric (Jonny results) Medical Service) TOTAL 25.0 % Normal (applies MEDGEN LYMPHOCYTES,% to non-numeric (Dante results) Medical Service) MONOCYTES,% 7.4 % Normal (applies MEDGEN to non-numeric (Jonny results) Medical Service) EOSINOPHILS,% 3.4 % Normal (applies MEDGEN to non-numeric (Dante results) Medical Service) BASOPHILS,% 0.5 % Normal (applies MEDGEN to non-numeric (Jonny results) Medical Service) NEUTROPHILS,ABSO 5606 Normal (applies MEDGEN LUTE Cells/mc to non-numeric (Jonny L results) Medical Service) MONOCYTES,ABSOLU 651 Normal (applies MEDGEN TE Cells/mc to non-numeric (Jonny L results) Medical Service) LYMPHOCYTES,ABSO 2200 Normal (applies MEDGEN LUTE Cells/mc to non-numeric (Dante L results) Medical Service) EOSINOPHILS,ABSO 299 Normal (applies MEDGEN LUTE Cells/mc to non-numeric (Jonny L results) Medical Service) BASOPHILS,ABSOLU 44 Normal (applies MEDGEN TE Cells/mc to non-numeric (Jonny L results) Medical Service) DIFFERENTIAL Normal (applies MEDGEN to non-numeric (Jonny results) Medical Service) ID Date Data Source [id number] 12/23/2016 12:00:00 AM EST [facility] ([facility] Medical Service) Name Value Range Interpretation Description Data Sup porting Code Source(s) Document(s ) CHOLESTEROL,TOTA 149 Normal (applies MEDGEN L mg/dL to non-numeric (Jonny results) Medical Service) HDL CHOLESTEROL 50 mg/dL Normal (applies MEDGEN to non-numeric (Jonny results) Medical Service) CHOLESTEROL/HDL 3.0 Normal (applies MEDGEN RATIO to non-numeric (Jonny results) Medical Service) LDL CHOL, 81 mg/dL Normal (applies MEDGEN CALCULATED to non-numeric (Dante results) Medical Service) TRIGLYCERIDES 88 mg/dL Normal (applies MEDGEN to non-numeric (Dante results) Medical Service) NON HDL 99 mg/dL Normal (applies MEDGEN CHOLESTEROL to non-numeric (Dante results) Medical Service) ID Date Data Source [id number] 12/23/2016 12:00:00 AM EST [facility]GEN ([facility] Medical Service) Name Value Range Interpretation Code Description Data Rafaela rce(s) Supporting Document(s ) URIC ACID 3.5 mg/dL Normal (applies to MEDGEN non-numeric (Jonny results) Medical Service) ID Date Data Source [id number] 12/23/2016 12:00:00 AM EST [facility] ([facility]) Name Value Range Interpretation Description Data Sup porting Code Source(s) Document(s ) Sodium 140 Normal (applies MEDGEN [Moles/volume] mmol/L to non-numeric (Jonny in Serum, Plasma results) Medical or Blood Service) Glucose 102 Normal (applies MEDGEN [Mass/volume] in mg/dL to non-numeric ([place] Urine collected results) Medical for unspecified Service) duration Potassium 4.5 Normal (applies MEDGEN [Mass/volume] in mmol/L to non-numeric ([place] Blood results) Medical Service) Chloride 105 Normal (applies MEDGEN [Moles/volume] mmol/L to non-numeric (Jonny in Serum, Plasma results) Medical or Blood Service) Carbon dioxide 24 Normal (applies MEDGEN [VFr/PPres] in mmol/L to non-numeric (Jonny Gas delivery results) Medical system Service) Urea nitrogen 13 mg/dL Normal (applies MEDGEN [Moles/volume] to non-numeric (Dante in Blood results) Medical Service) Creatinine 1.02 Above high normal MEDGEN [Interpretation] mg/dL (Dante in Urine Medical Service) Calcium 9.6 Normal (applies MEDGEN [Moles/volume] mg/dL to non-numeric (Jonny in Urine results) Medical collected for Service) unspecified duration BUN/CREATININE 13 Normal (applies MEDGEN RATIO (calc) to non-numeric (Dante results) Medical Service) PROTEIN, TOTAL 7.5 g/dL Normal (applies MEDGEN to non-numeric (Jonny results) Medical Service) Microalbumin 4.3 g/dL Normal (applies MEDGEN [Mass/time] in to non-numeric (Dante Urine collected results) Medical for unspecified Service) duration Globulin 3.2 g/dL Normal (applies MEDGEN [Mass/time] in (calc) to non-numeric (Jonny 24 hour Urine results) Medical Service) ALBUMIN/GLOBULIN 1.3 Normal (applies MEDGEN RATIO (calc) to non-numeric (Jonny results) Medical Service) BILIRUBIN,TOTAL 0.3 Normal (applies MEDGEN mg/dL to non-numeric (Jonny results) Medical Service) Alkaline 82 U/L Normal (applies MEDGEN phosphatase to non-numeric (Jonny [Enzymatic results) Medical activity/volume] Service) in Serum, Plasma or Blood AST 15 U/L Normal (applies MEDGEN to non-numeric (Jonny results) Medical Service) ALT 12 U/L Normal (applies MEDGEN to non-numeric (Dante results) Medical Service) EGFR NON AFR 56 Below low normal MEDGEN [place] mL/min/1 (Jonny .73m2 Medical Service) EGFR 65 Normal (applies MEDGEN [place] mL/min/1 to non-numeric (Dante .73m2 results) Medical Service) ID Date Data Source [id number] 12/23/2016 12:00:00 AM EST [facility]GEN ([facility] Service) Name Value Range Interpretation Description Data Sup porting Code Source(s) Document(s ) TSH 2.51 mIU/L Normal (applies to MEDGEN non-numeric (Dante results) Medical Service) T4 6.2 mcg/dL Normal (applies to MEDGEN (THYROXINE) non-numeric (Dante , TOTAL results) Medical Service) T3 UPTAKE 33 % Normal (applies to MEDGEN non-numeric (Dante results) Medical Service) FREE T4 2.0 Normal (applies to MEDGEN INDEX (T7) non-numeric (Jonny results) Medical Service) T3,TOTAL 85 ng/dL Normal (applies to MEDGEN non-numeric (Jonny results) Medical Service) ID Date Data Source [id number] 12/23/2016 12:00:00 AM EST [facility] ([facility] Service) Name Value Range Interpretation Description Data Sup porting Code Source(s) Document(s ) VITAMIN B12 444 pg/mL Normal (applies to MEDGEN non-numeric (Dante results) Medical Service) ID Date Data Source [id number] 12/23/2016 12:00:00 AM EST [facility] ([facility] Service) Name Value Range Interpretation Description Data Sup porting Code Source(s) Document(s ) WBC 8.8 Normal (applies MEDGEN Thous/mc to non-numeric (Jonny L results) Medical Service) Hemoglobin 13.5 Normal (applies MEDGEN [Mass/volume] in g/dL to non-numeric ([place] Mixed venous results) Medical blood by Service) Oximetry RBC 4.56 Normal (applies MEDGEN Mill/mcL to non-numeric (Jonny results) Medical Service) Hematocrit [Pure 41.5 % Normal (applies MEDGEN volume fraction] to non-numeric ([place] of Blood by results) Medical Automated count Service) MCV 91.1 fL Normal (applies MEDGEN to non-numeric (Jonny results) Medical Service) MCH 29.5 pg Normal (applies MEDGEN to non-numeric (Jonny results) Medical Service) MCHC 32.4 Normal (applies MEDGEN g/dL to non-numeric (Jonny results) Medical Service) RDW 13.9 % Normal (applies MEDGEN to non-numeric (Dante results) Medical Service) PLATELET COUNT 283 Normal (applies MEDGEN Thous/mc to non-numeric (Jonny L results) Medical Service) TOTAL 63.7 % Normal (applies MEDGEN NEUTROPHILS,% to non-numeric (Dante results) Medical Service) MPV 11.4 fL Normal (applies MEDGEN to non-numeric (Jonny results) Medical Service) TOTAL 25.0 % Normal (applies MEDGEN LYMPHOCYTES,% to non-numeric (Jonny results) Medical Service) MONOCYTES,% 7.4 % Normal (applies MEDGEN to non-numeric (Dante results) Medical Service) EOSINOPHILS,% 3.4 % Normal (applies MEDGEN to non-numeric (Dante results) Medical Service) BASOPHILS,% 0.5 % Normal (applies MEDGEN to non-numeric (Jonny results) Medical Service) NEUTROPHILS,ABSO 5606 Normal (applies MEDGEN LUTE Cells/mc to non-numeric (Jonny L results) Medical Service) LYMPHOCYTES,ABSO 2200 Normal (applies MEDGEN LUTE Cells/mc to non-numeric (Jonny L results) Medical Service) MONOCYTES,ABSOLU 651 Normal (applies MEDGEN TE Cells/mc to non-numeric (Jonny L results) Medical Service) EOSINOPHILS,ABSO 299 Normal (applies MEDGEN LUTE Cells/mc to non-numeric (Dante L results) Medical Service) BASOPHILS,ABSOLU 44 Normal (applies MEDGEN TE Cells/mc to non-numeric (Dante L results) Medical Service) DIFFERENTIAL Normal (applies MEDGEN to non-numeric (Jonny results) Medical Service) ID Date Data Source [id number] 12/23/2016 12:00:00 AM EST [facility] ([facility] Service) Name Value Range Interpretation Description Data Sup porting Code Source(s) Document(s ) CHOLESTEROL,TOTA 149 Normal (applies MEDGEN L mg/dL to non-numeric (Dante results) Medical Service) HDL CHOLESTEROL 50 mg/dL Normal (applies MEDGEN to non-numeric (Dante results) Medical Service) CHOLESTEROL/HDL 3.0 Normal (applies MEDGEN RATIO to non-numeric (Jonny results) Medical Service) LDL CHOL, 81 mg/dL Normal (applies MEDGEN CALCULATED to non-numeric (Dante results) Medical Service) TRIGLYCERIDES 88 mg/dL Normal (applies MEDGEN to non-numeric (Dante results) Medical Service) NON HDL 99 mg/dL Normal (applies MEDGEN CHOLESTEROL to non-numeric (Dante results) Medical Service) ID Date Data Source [id number] 12/23/2016 12:00:00 AM EST [facility] ([facility] Service) Name Value Range Interpretation Code Description Data Rafaela rce(s) Supporting Document(s ) URIC ACID 3.5 mg/dL Normal (applies to MEDGEN non-numeric (Jonny results) Medical Service) ID Date Data Source [id number] 12/23/2016 12:00:00 AM EST [facility] ([facility] Service) Name Value Range Interpretation Description Data Sup porting Code Source(s) Document(s ) Glucose 102 Normal (applies MEDGEN [Mass/volume] in mg/dL to non-numeric ([place] Urine collected results) Medical for unspecified Service) duration Sodium 140 Normal (applies MEDGEN [Moles/volume] mmol/L to non-numeric (Jonny in Serum, Plasma results) Medical or Blood Service) Potassium 4.5 Normal (applies MEDGEN [Mass/volume] in mmol/L to non-numeric ([place] Blood results) Medical Service) Carbon dioxide 24 Normal (applies MEDGEN [VFr/PPres] in mmol/L to non-numeric (Dante Gas delivery results) Medical system Service) Chloride 105 Normal (applies MEDGEN [Moles/volume] mmol/L to non-numeric (Jonny in Serum, Plasma results) Medical or Blood Service) Urea nitrogen 13 mg/dL Normal (applies MEDGEN [Moles/volume] to non-numeric (Dante in Blood results) Medical Service) BUN/CREATININE 13 Normal (applies MEDGEN RATIO (calc) to non-numeric (Jonny results) Medical Service) Creatinine 1.02 Above high normal MEDGEN [Interpretation] mg/dL ([facility]ante in Urine Medical Service) Calcium 9.6 Normal (applies MEDGEN [Moles/volume] mg/dL to non-numeric ([facility]ny in Urine results) Medical collected for Service) unspecified duration PROTEIN, TOTAL 7.5 g/dL Normal (applies MEDGEN to non-numeric (Jonny results) Medical Service) Globulin 3.2 g/dL Normal (applies MEDGEN [Mass/time] in (calc) to non-numeric (Dante 24 hour Urine results) Medical Service) Microalbumin 4.3 g/dL Normal (applies MEDGEN [Mass/time] in to non-numeric (Jonny Urine collected results) Medical for unspecified Service) duration ALBUMIN/GLOBULIN 1.3 Normal (applies MEDGEN RATIO (calc) to non-numeric (Jonny results) Medical Service) BILIRUBIN,TOTAL 0.3 Normal (applies MEDGEN mg/dL to non-numeric (Jonny results) Medical Service) AST 15 U/L Normal (applies MEDGEN to non-numeric (Dante results) Medical Service) Alkaline 82 U/L Normal (applies MEDGEN phosphatase to non-numeric (Jonny [Enzymatic results) Medical activity/volume] Service) in Serum, Plasma or Blood ALT 12 U/L Normal (applies MEDGEN to non-numeric (Dante results) Medical Service) EGFR NON AFR 56 Below low normal MEDGEN [place] mL/min/1 (Jonny .73m2 Medical Service) EGFR 65 Normal (applies MEDGEN [place] mL/min/1 to non-numeric (Jonny .73m2 results) Medical Service) ID Date Data Source [id number] 12/23/2016 12:00:00 AM EST MEDGEN ([facility] Medical Service) Name Value Range Interpretation Description Data Sup porting Code Source(s) Document(s ) TSH 2.51 mIU/L Normal (applies to MEDGEN non-numeric (Dante results) Medical Service) T4 6.2 mcg/dL Normal (applies to MEDGEN (THYROXINE) non-numeric (Jonny , TOTAL results) Medical Service) T3 UPTAKE 33 % Normal (applies to MEDGEN non-numeric (Dante results) Medical Service) FREE T4 2.0 Normal (applies to MEDGEN INDEX (T7) non-numeric (Dante results) Medical Service) T3,TOTAL 85 ng/dL Normal (applies to MEDGEN non-numeric (Dante results) Medical Service) ID Date Data Source [id number] 12/23/2016 12:00:00 AM EST MEDGEN ([facility]) Name Value Range Interpretation Description Data Sup porting Code Source(s) Document(s ) VITAMIN 20 ng/mL Below low normal MEDGEN D,25-OH,TOTA (Dante L,[place] Medical Service) ID Date Data Source [id number] 12/23/2016 12:00:00 AM EST MEDGEN ([facility]) Name Value Range Interpretation Description Data Sup porting Code Source(s) Document(s ) Hemoglobin 6.6 % of Above high normal MEDGEN A1c[facility] ID Date Data Source [id number] 12/23/2016 12:00:00 AM EST MEDGEN ([facility]) Name Value Range Interpretation Code Description Data Rafaela rce(s) Supporting Document(s ) FOLATE,SE 9.0 ng/mL Normal (applies to MEDGEN RUM non-numeric (Dante results) Medical Service) ID Date Data Source [id number] 12/23/2016 12:00:00 AM EST MEDGEN ([facility]) Name Value Range Interpretation Description Data Sup porting Code Source(s) Document(s ) VITAMIN B12 444 pg/mL Normal (applies to MEDGEN non-numeric (Dante results) Medical Service) ID Date Data Source [id number] 12/23/2016 12:00:00 AM EST MEDGEN ([facility]) Name Value Range Interpretation Description Data Sup porting Code Source(s) Document(s ) WBC 8.8 Normal (applies MEDGEN Thous/mc to non-numeric (Dante L results) Medical Service) RBC 4.56 Normal (applies MEDGEN Mill/mcL to non-numeric (Dante results) Medical Service) Hemoglobin 13.5 Normal (applies MEDGEN [Mass/volume] in g/dL to non-numeric ([place] Mixed venous results) Medical blood by Service) Oximetry Hematocrit [Pure 41.5 % Normal (applies MEDGEN volume fraction] to non-numeric ([place] of Blood by results) Medical Automated count Service) MCV 91.1 fL Normal (applies MEDGEN to non-numeric (Dante results) Medical Service) MCHC 32.4 Normal (applies MEDGEN g/dL to non-numeric (Dante results) Medical Service) MCH 29.5 pg Normal (applies MEDGEN to non-numeric (Dante results) Medical Service) RDW 13.9 % Normal (applies MEDGEN to non-numeric (Jonny results) Medical Service) PLATELET COUNT 283 Normal (applies MEDGEN Thous/mc to non-numeric (Dante L results) Medical Service) MPV 11.4 fL Normal (applies MEDGEN to non-numeric (Jonny results) Medical Service) TOTAL 63.7 % Normal (applies MEDGEN NEUTROPHILS,% to non-numeric (Jonny results) Medical Service) TOTAL 25.0 % Normal (applies MEDGEN LYMPHOCYTES,% to non-numeric (Dante results) Medical Service) MONOCYTES,% 7.4 % Normal (applies MEDGEN to non-numeric (Dante results) Medical Service) EOSINOPHILS,% 3.4 % Normal (applies MEDGEN to non-numeric (Jonny results) Medical Service) BASOPHILS,% 0.5 % Normal (applies MEDGEN to non-numeric (Jonny results) Medical Service) NEUTROPHILS,ABSO 5606 Normal (applies MEDGEN LUTE Cells/mc to non-numeric (Dante L results) Medical Service) LYMPHOCYTES,ABSO 2200 Normal (applies MEDGEN LUTE Cells/mc to non-numeric (Dante L results) Medical Service) MONOCYTES,ABSOLU 651 Normal (applies MEDGEN TE Cells/mc to non-numeric (Jonny L results) Medical Service) EOSINOPHILS,ABSO 299 Normal (applies MEDGEN LUTE Cells/mc to non-numeric (Jnony L results) Medical Service) BASOPHILS,ABSOLU 44 Normal (applies MEDGEN TE Cells/mc to non-numeric (Dante L results) Medical Service) DIFFERENTIAL Normal (applies MEDGEN to non-numeric (Dante results) Medical Service) ID Date Data Source [id number] 12/23/2016 12:00:00 AM EST MEDGEN ([facility] Medical Service) Name Value Range Interpretation Description Data Sup porting Code Source(s) Document(s ) HDL CHOLESTEROL 50 mg/dL Normal (applies MEDGEN to non-numeric (Dante results) Medical Service) CHOLESTEROL,TOTA 149 Normal (applies MEDGEN L mg/dL to non-numeric (Jonny results) Medical Service) CHOLESTEROL/HDL 3.0 Normal (applies MEDGEN RATIO to non-numeric (Dante results) Medical Service) TRIGLYCERIDES 88 mg/dL Normal (applies MEDGEN to non-numeric (Jonny results) Medical Service) LDL CHOL, 81 mg/dL Normal (applies MEDGEN CALCULATED to non-numeric (Jonny results) Medical Service) NON HDL 99 mg/dL Normal (applies MEDGEN CHOLESTEROL to non-numeric (Jonny results) Medical Service) ID Date Data Source [id number] 12/23/2016 12:00:00 AM EST MEDGEN ([facility] Medical Service) Name Value Range Interpretation Code Description Data Rafaela rce(s) Supporting Document(s ) URIC ACID 3.5 mg/dL Normal (applies to MEDGEN non-numeric (Jonny results) Medical Service) ID Date Data Source [id number] 12/23/2016 12:00:00 AM EST MEDGEN ([facility]) Name Value Range Interpretation Description Data Sup porting Code Source(s) Document(s ) Glucose 102 Normal (applies MEDGEN [Mass/volume] in mg/dL to non-numeric ([place] Urine collected results) Medical for unspecified Service) duration Sodium 140 Normal (applies MEDGEN [Moles/volume] mmol/L to non-numeric (Jonny in Serum, Plasma results) Medical or Blood Service) Potassium 4.5 Normal (applies MEDGEN [Mass/volume] in mmol/L to non-numeric ([place] Blood results) Medical Service) Chloride 105 Normal (applies MEDGEN [Moles/volume] mmol/L to non-numeric (Jonny in Serum, Plasma results) Medical or Blood Service) Carbon dioxide 24 Normal (applies MEDGEN [VFr/PPres] in mmol/L to non-numeric (Jonny Gas delivery results) Medical system Service) Urea nitrogen 13 mg/dL Normal (applies MEDGEN [Moles/volume] to non-numeric (Dante in Blood results) Medical Service) Creatinine 1.02 Above high normal MEDGEN [Interpretation] mg/dL (Dante in Urine Medical Service) BUN/CREATININE 13 Normal (applies MEDGEN RATIO (calc) to non-numeric (Jonny results) Medical Service) PROTEIN, TOTAL 7.5 g/dL Normal (applies MEDGEN to non-numeric (Jonny results) Medical Service) Calcium 9.6 Normal (applies MEDGEN [Moles/volume] mg/dL to non-numeric (Jonny in Urine results) Medical collected for Service) unspecified duration Microalbumin 4.3 g/dL Normal (applies MEDGEN [Mass/time] in to non-numeric (Dante Urine collected results) Medical for unspecified Service) duration ALBUMIN/GLOBULIN 1.3 Normal (applies MEDGEN RATIO (calc) to non-numeric (Dante results) Medical Service) Globulin 3.2 g/dL Normal (applies MEDGEN [Mass/time] in (calc) to non-numeric (Dante 24 hour Urine results) Medical Service) BILIRUBIN,TOTAL 0.3 Normal (applies MEDGEN mg/dL to non-numeric (Dante results) Medical Service) Alkaline 82 U/L Normal (applies MEDGEN phosphatase to non-numeric (Dante [Enzymatic results) Medical activity/volume] Service) in Serum, Plasma or Blood AST 15 U/L Normal (applies MEDGEN to non-numeric (Jonny results) Medical Service) ALT 12 U/L Normal (applies MEDGEN to non-numeric (Jonny results) Medical Service) EGFR 65 Normal (applies MEDGEN [place] mL/min/1 to non-numeric (Dante .73m2 results) Medical Service) EGFR NON AFR 56 Below low normal MEDGEN [place] mL/min/1 (Dante .73m2 Medical Service) ID Date Data Source [id number] 12/23/2016 12:00:00 AM EST MEDGEN ([facility] Medical Service) Name Value Range Interpretation Description Data Sup porting Code Source(s) Document(s ) TSH 2.51 mIU/L Normal (applies to MEDGEN non-numeric (Jonny results) Medical Service) T4 6.2 mcg/dL Normal (applies to MEDGEN (THYROXINE) non-numeric (Jonny , TOTAL results) Medical Service) T3 UPTAKE 33 % Normal (applies to MEDGEN non-numeric (Dante results) Medical Service) T3,TOTAL 85 ng/dL Normal (applies to MEDGEN non-numeric (Jonny results) Medical Service) FREE T4 2.0 Normal (applies to MEDGEN INDEX (T7) non-numeric (Dante results) Medical Service) Procedure Social History Code Duration Value Status Description Data Source(s ) Smoking 07/15/2020 previous smoker, completed previous smoker, ME DGEN (Dante 12:00:00 AM EDT social drinker, + social drinke r, + Medical Service) marijuana marijuana Smoking 07/15/2020 Unknown if ever completed Unknown if ever MEDG EN (Jonny 12:00:00 AM EDT smoked smoked Medical S ervice) Smoking 07/12/2020 previous smoker, completed previous smoker, ME DGEN (Jonny 12:00:00 AM EDT social drinker, + social drinke r, + Medical Service) marijuana marijuana Smoking 07/12/2020 Unknown if ever completed Unknown if ever MEDG EN (Dante 12:00:00 AM EDT smoked smoked Medical S ervice) Smoking 07/05/2020 previous smoker, completed previous smoker, ME DGEN (Jonny 12:00:00 AM EDT social drinker, + social drinke r, + Medical Service) marijuana marijuana Smoking 07/05/2020 Unknown if ever completed Unknown if ever MEDG EN (Jonny 12:00:00 AM EDT smoked smoked Medical S ervice) Smoking 06/12/2020 previous smoker, completed previous smoker, ME DGEN (Dante 12:00:00 AM EDT social drinker, + social drinke r, + Medical Service) marijuana marijuana Smoking 06/12/2020 Unknown if ever completed Unknown if ever MEDG EN (Jonny 12:00:00 AM EDT smoked smoked Medical S ervice) Smoking Unknown if ever completed Unknown if ever [facility] smoked smoked [facility] Vital Signs ID Date Data Source UNK Name Value Range Interpretation Code Description Data Source(s) Diastolic blood 73 mm[Hg] 73 mm[Hg] MEDGEN ([facility] pressure Medical Servic e) Systolic blood 120 mm[Hg] 120 mm[Hg] MEDGEN ([facility] [place] [facility]) Diastolic blood 73 mm[Hg] 73 mm[Hg] MEDGEN ([facility] pressure Medical Servic e) Systolic blood 120 mm[Hg] 120 mm[Hg] MEDGEN ([facility] [place] [facility] Servic e) Heart rate 94 /min 94 /min MEDGEN ([facility]) Respiratory rate 16 /min 16 /min MEDGEN ( [facility] Medical Servic e) Body mass index 27.4 kg/m2 27.4 kg/m2 MEDGEN ([address] (BMI) [Ratio] Medical Ser vice) Diastolic blood 80 mm[Hg] 80 mm[Hg] MEDGEN ([facility] pressure Medical Servic e) Systolic blood 120 mm[Hg] 120 mm[Hg] MEDGEN ([facility] [place] [facility]) Body weight 150 lb 150 lb MEDGEN ([facility]) Body height 62 in 62 in MEDGEN ([facility]) Heart rate 94 /min 94 /min MEDGEN ([facility]) Respiratory rate 16 /min 16 /min MEDGEN ( [facility] Servic e) Body mass index 27.4 kg/m2 27.4 kg/m2 MEDGEN ([facility] [address] (BMI) [Ratio] Medical Ser vice) Diastolic blood 80 mm[Hg] 80 mm[Hg] MEDGEN ([facility] pressure Medical Servic e) Systolic blood 120 mm[Hg] 120 mm[Hg] MEDGEN ([facility] [place] [facility]) Body weight 150 lb 150 lb MEDGEN ([facility]) Body height 62 in 62 in MEDGEN ([facility]) Body height 62 in 62 in MEDGEN ([facility]) Heart rate 94 /min 94 /min MEDGEN ([facility]) Respiratory rate 16 /min 16 /min MEDGEN ( [facility] Servic e) Body mass index 27.4 kg/m2 27.4 kg/m2 MEDGEN ([facility] [address] (BMI) [Ratio] Medical Ser vice) Diastolic blood 80 mm[Hg] 80 mm[Hg] MEDGEN ([facility] pressure Medical Servic e) Systolic blood 120 mm[Hg] 120 mm[Hg] MEDGEN ([facility] [place] [facility] Servic e) Body weight 150 lb 150 lb MEDGEN ([facility]) Heart rate 94 /min 94 /min MEDGEN ([facility]) Respiratory rate 16 /min 16 /min MEDGEN ( [facility] Medical Servic e) Body mass index 27.4 kg/m2 27.4 kg/m2 MEDGEN ([address] (BMI) [Ratio] Medical Ser vice) Diastolic blood 80 mm[Hg] 80 mm[Hg] MEDGEN ([facility] pressure Medical Servic e) Systolic blood 120 mm[Hg] 120 mm[Hg] MEDGEN ([place] [facility] Servic e) Body weight 150 lb 150 lb MED[facility] ([facility]) Body height 62 in 62 in MEDGEN ([facility]) Diastolic blood 80 mm[Hg] 80 mm[Hg] MEDGEN ([facility] pressure Medical Servic e) Systolic blood 120 mm[Hg] 120 mm[Hg] MEDGEN ([facility] [place] [facility] Servic e) Body weight 150 lb 150 lb [facility] ([facility]) Body height 62 in 62 in MEDGEN ([facility]) Heart rate 94 /min 94 /min MEDGEN ([facility]) Respiratory rate 16 /min 16 /min MEDGEN ( [facility] Medical Servic e) Body mass index 27.4 kg/m2 27.4 kg/m2 MEDGEN ([address] (BMI) [Ratio] Medical Ser vice) Heart rate 94 /min 94 /min MEDGEN ([facility] [facility]) Respiratory rate 16 /min 16 /min MEDGEN ( [facility] Medical Servic e) Body mass index 27.4 kg/m2 27.4 kg/m2 MEDGEN ([facility] (BMI) [Ratio] Medical Ser vice) Diastolic blood 80 mm[Hg] 80 mm[Hg] MEDGEN ([facility] pressure Medical Servic e) Systolic blood 120 mm[Hg] 120 mm[Hg] MEDGEN ([place] [facility] Servic e) Body weight 150 lb 150 lb MED[facility] ([facility]) Body height 62 in 62 in [facility]GEN ([facility]) Heart rate 94 /min 94 /min MEDGEN ([facility]) Respiratory rate 16 /min 16 /min MEDGEN ( [facility] Medical Servic e) Body mass index 27.4 kg/m2 27.4 kg/m2 MEDGEN ([facility] (BMI) [Ratio] Medical Ser vice) Diastolic blood 80 mm[Hg] 80 mm[Hg] MEDGEN ([facility] pressure Medical Servic e) Systolic blood 120 mm[Hg] 120 mm[Hg] MEDGEN ([place] [facility] Servic e) Body weight 150 lb 150 lb MEDGEN ([facility]) Body height 62 in 62 in MEDGEN ([facility]) Diastolic blood 80 mm[Hg] 80 mm[Hg] MEDGEN ([facility] pressure Medical Servic e) Systolic blood 120 mm[Hg] 120 mm[Hg] MEDGEN ([place] [facility] Medical Servic e) Body weight 150 lb 150 lb [facility] ([facility]) Body height 62 in 62 in [facility]GEN ([facility]) Heart rate 94 /min 94 /min MEDGEN ([facility]) Respiratory rate 16 /min 16 /min MEDGEN ( [facility]ic [facility]) Body mass index 27.4 kg/m2 27.4 kg/m2 MEDGEN ([facility] (BMI) [Ratio] Medical Ser vice) Heart rate 94 /min 94 /min MEDGEN ([facility]) Respiratory rate 16 /min 16 /min MEDGEN ( [facility] Medical Servic e) Body mass index 27.4 kg/m2 27.4 kg/m2 MEDGEN ([facility] (BMI) [Ratio] Medical Ser vice) Diastolic blood 80 mm[Hg] 80 mm[Hg] MEDGEN ([facility] pressure Medical Servic e) Systolic blood 120 mm[Hg] 120 mm[Hg] MEDGEN ([place] [facility] Servic e) Body weight 150 lb 150 lb [facility] ([facility]) Body height 62 in 62 in MEDGEN ([facility]) Heart rate 94 /min 94 /min MEDGEN ([facility]) Respiratory rate 16 /min 16 /min MEDGEN ( [facility] Medical Servic e) Body mass index 27.4 kg/m2 27.4 kg/m2 MEDGEN ([facility] (BMI) [Ratio] Medical Ser vice) Diastolic blood 80 mm[Hg] 80 mm[Hg] MEDGEN ([facility] pressure Medical Servic e) Systolic blood 120 mm[Hg] 120 mm[Hg] MEDGEN ([place] [facility] Servic e) Body weight 150 lb 150 lb [facility] ([facility]) Body height 62 in 62 in [facility]GEN ([facility]) Heart rate 94 /min 94 /min MEDGEN ([facility]) Respiratory rate 16 /min 16 /min MEDGEN ( [facility] Medical Servic e) Body mass index 27.4 kg/m2 27.4 kg/m2 MEDGEN ([facility] (BMI) [Ratio] Medical Ser vice) Diastolic blood 80 mm[Hg] 80 mm[Hg] MEDGEN ([facility] pressure Medical Servic e) Systolic blood 120 mm[Hg] 120 mm[Hg] MEDGEN ([place] [facility] Servic e) Body weight 150 lb 150 lb [facility] ([facility]) Body height 62 in 62 in MEDGEN ([facility] Heart rate 94 /min 94 /min MEDGEN ([facility]) Respiratory rate 16 /min 16 /min MEDGEN ( [facility]ic e) Body mass index 27.4 kg/m2 27.4 kg/m2 MEDGEN ([address] (BMI) [Ratio] Medical Ser vice) Diastolic blood 80 mm[Hg] 80 mm[Hg] MEDGEN ([facility] pressure Medical Servic e) Systolic blood 120 mm[Hg] 120 mm[Hg] MEDGEN ([place] [facility] Servic e) Body weight 150 lb 150 lb MEDGEN ([facility] way [facility] Servic e) Body height 62 in 62 in MEDGEN ([facility] way Medical Servic e) Heart rate 94 /min 94 /min MEDGEN ([facility] [facility]) Respiratory rate 16 /min 16 /min MEDGEN ( [facility] Medical Servic e) Body mass index 27.4 kg/m2 27.4 kg/m2 MEDGEN ([facility] (BMI) [Ratio] Medical Ser vice) Diastolic blood 80 mm[Hg] 80 mm[Hg] MEDGEN ([facility] pressure Medical Servic e) Systolic blood 120 mm[Hg] 120 mm[Hg] MEDGEN ([place] [facility] Servic e) Body weight 150 lb 150 lb MEDGEN ([facility] way Medical Servic e) Body height 62 in 62 in MEDGEN ([facility] way Medical Servic e) Heart rate 94 /min 94 /min MEDGEN ([facility] [facility]) Respiratory rate 16 /min 16 /min MEDGEN ( [facility] Medical Servic e) Body mass index 27.4 kg/m2 27.4 kg/m2 MEDGEN ([facility] (BMI) [Ratio] Medical Ser vice) Diastolic blood 80 mm[Hg] 80 mm[Hg] MEDGEN ([facility] pressure Medical Servic e) Systolic blood 120 mm[Hg] 120 mm[Hg] MEDGEN ([place] [facility] Servic e) Body weight 150 lb 150 lb MEDGEN ([facility] Medical Servic e) Body height 62 in 62 in MEDGEN ([facility] Medical Servic e) Heart rate 94 /min 94 /min MEDGEN ([facility]) Respiratory rate 16 /min 16 /min MEDGEN ( [facility]) Body mass index 27.4 kg/m2 27.4 kg/m2 MEDGEN ([facility] (BMI) [Ratio] Medical Ser vice) Diastolic blood 80 mm[Hg] 80 mm[Hg] MEDGEN ([facility] pressure Medical Servic e) Systolic blood 120 mm[Hg] 120 mm[Hg] MEDGEN ([place] [facility] Servic [facility]) Body weight 150 lb 150 lb MED[facility] ([facility]) Body height 62 in 62 in MEDGEN ([facility]) Heart rate 94 /min 94 /min MEDGEN ([facility]) Respiratory rate 16 /min 16 /min MEDGEN ( [facility]) Body mass index 27.4 kg/m2 27.4 kg/m2 MEDGEN ([facility] (BMI) [Ratio] Medical Ser vice) Diastolic blood 80 mm[Hg] 80 mm[Hg] MEDGEN ([facility] pressure Medical Servic e) Systolic blood 140 mm[Hg] 140 mm[Hg] MEDGEN ([place] [facility]ic [facility]) Body weight 150 lb 150 lb [facility] ([facility]) Body height 62 in 62 in MEDGEN ([facility]) Heart rate 94 /min 94 /min MEDGEN ([facility]) Respiratory rate 16 /min 16 /min MEDGEN ( [facility]) Body mass index 27.4 kg/m2 27.4 kg/m2 MEDGEN ([facility] (BMI) [Ratio] Medical Ser vice) Diastolic blood 80 mm[Hg] 80 mm[Hg] MEDGEN ([facility] pressure Medical Servic e) Systolic blood 140 mm[Hg] 140 mm[Hg] MEDGEN ([place] [facility]ic [facility]) Body weight 150 lb 150 lb MEDGEN ([facility]) Body height 62 in 62 in MEDGEN ([facility]) Heart rate 94 /min 94 /min MEDGEN ([facility]) Respiratory rate 16 /min 16 /min MEDGEN ( [facility]) Body mass index 27.4 kg/m2 27.4 kg/m2 MEDGEN ([facility] (BMI) [Ratio] Medical Ser vice) Diastolic blood 80 mm[Hg] 80 mm[Hg] MEDGEN ([facility] pressure Medical Servic e) Systolic blood 140 mm[Hg] 140 mm[Hg] MEDGEN ([place] [facility]) Body weight 150 lb 150 lb MEDGEN ([facility]) Body height 62 in 62 in MEDGEN ([facility]) Heart rate 94 /min 94 /min MEDGEN ([facility]) Respiratory rate 16 /min 16 /min MEDGEN ( [facility]) Body mass index 27.4 kg/m2 27.4 kg/m2 MEDGEN ([facility] [address] (BMI) [Ratio] Medical Ser vice) Diastolic blood 80 mm[Hg] 80 mm[Hg] MEDGEN ([facility] pressure Medical Servic e) Systolic blood 140 mm[Hg] 140 mm[Hg] MEDGEN ([place] [facility]) Body weight 150 lb 150 lb [facility] ([facility]) Body height 62 in 62 in MEDGEN ([facility]) Heart rate 94 /min 94 /min MEDGEN ([facility]) Respiratory rate 16 /min 16 /min MEDGEN ( [facility]) Body mass index 27.4 kg/m2 27.4 kg/m2 MEDGEN ([facility] (BMI) [Ratio] Medical Ser vice) Diastolic blood 80 mm[Hg] 80 mm[Hg] MEDGEN ([facility] pressure Medical Servic e) Systolic blood 140 mm[Hg] 140 mm[Hg] MEDGEN ([place] [facility] Servic [facility]) Body weight 150 lb 150 lb [facility] ([facility]) Body height 62 in 62 in MEDGEN ([facility] Heart rate 94 /min 94 /min MEDGEN ([facility]) Respiratory rate 16 /min 16 /min MEDGEN ( [facility]) Body mass index 27.4 kg/m2 27.4 kg/m2 MEDGEN ([facility] (BMI) [Ratio] Medical Ser vice) Diastolic blood 80 mm[Hg] 80 mm[Hg] MEDGEN ([facility] pressure Medical Servic e) Systolic blood 140 mm[Hg] 140 mm[Hg] MEDGEN ([place] [facility]) Body weight 150 lb 150 lb MEDGEN ([facility]) Body height 62 in 62 in MEDGEN ([facility]) Heart rate 94 /min 94 /min MEDGEN ([facility]) Respiratory rate 16 /min 16 /min MEDGEN ( [facility]) Body mass index 27.4 kg/m2 27.4 kg/m2 MEDGEN ([facility] [address] (BMI) [Ratio] Medical Ser vice) Diastolic blood 80 mm[Hg] 80 mm[Hg] MEDGEN ([facility] pressure Medical Servic e) Systolic blood 140 mm[Hg] 140 mm[Hg] MEDGEN ([place] [facility]ic [facility]) Body weight 150 lb 150 lb MEDGEN ([facility]) Body height 62 in 62 in MEDGEN ([facility]) Heart rate 94 /min 94 /min MEDGEN ([facility]) Respiratory rate 16 /min 16 /min MEDGEN ( [facility]) Body mass index 27.4 kg/m2 27.4 kg/m2 MEDGEN ([facility] [address] (BMI) [Ratio] Medical Ser vice) Diastolic blood 80 mm[Hg] 80 mm[Hg] MEDGEN ([facility] pressure Medical Servic e) Systolic blood 140 mm[Hg] 140 mm[Hg] MEDGEN ([place] [facility]ic [facility]) Body weight 150 lb 150 lb MEDGEN ([facility]) Body height 62 in 62 in MEDGEN ([facility]) Heart rate 94 /min 94 /min MEDGEN ([facility]) Respiratory rate 16 /min 16 /min MEDGEN ( [facility]) Body mass index 27.4 kg/m2 27.4 kg/m2 MEDGEN ([facility] (BMI) [Ratio] Medical Ser vice) Diastolic blood 90 mm[Hg] 90 mm[Hg] MEDGEN ([facility] pressure Medical Servic e) Systolic blood 130 mm[Hg] 130 mm[Hg] MEDGEN ([place] [facility]ic [facility]) Body weight 150 lb 150 lb MED[facility] ([facility]) Body height 62 in 62 in MEDGEN ([facility]) Heart rate 94 /min 94 /min MEDGEN ([facility]) Respiratory rate 16 /min 16 /min MEDGEN ( [facility]) Body mass index 27.4 kg/m2 27.4 kg/m2 MEDGEN ([facility] (BMI) [Ratio] Medical Ser vice) Diastolic blood 90 mm[Hg] 90 mm[Hg] MEDGEN ([facility] pressure Medical Servic e) Systolic blood 130 mm[Hg] 130 mm[Hg] MEDGEN ([facility] [place] [facility]) Body weight 150 lb 150 lb [facility] ([facility]) Body height 62 in 62 in [facility] ([facility]) Heart rate 94 /min 94 /min [facility]) Respiratory rate 16 /min 16 /min [facility] ( [facility]) Body mass index 27.4 kg/m2 27.4 kg/m2 [facility] ([facility] (BMI) [Ratio] [facility]) Diastolic blood 90 mm[Hg] 90 mm[Hg] [facility] Systolic blood 130 mm[Hg] 130 mm[Hg] [facility] Body weight 150 lb 150 lb [facility] ([facility]) Body height 62 in 62 in [facility] ([facility]) Heart rate 94 /min 94 /min [facility] ([facility]) Respiratory rate 16 /min 16 /min [facility] ( [facility]) Body mass index 27.4 kg/m2 27.4 kg/m2 [facility] ([facility] (BMI) [Ratio] [facility]) Diastolic blood 90 mm[Hg] 90 mm[Hg] [facility] Systolic blood 130 mm[Hg] 130 mm[Hg] [facility] Body weight 150 lb 150 lb [facility] ([facility]) Body height 62 in 62 in [facility] ([facility] Heart rate 94 /min 94 /min [facility] ([facility]) Respiratory rate 16 /min 16 /min [facility] ( [facility]) Body mass index 27.4 kg/m2 27.4 kg/m2 [facility] ([facility] (BMI) [Ratio] [facility]) Diastolic blood 90 mm[Hg] 90 mm[Hg] [facility] Systolic blood 120 mm[Hg] 120 mm[Hg] [facility] Body weight 150 lb 150 lb [facility] ([facility]) Body height 62 in 62 in [facility] ([facility] Heart rate 94 /min 94 /min [facility]) Respiratory rate 16 /min 16 /min [facility] ( [facility]) Body mass index 27.4 kg/m2 27.4 kg/m2 [facility] ([facility] (BMI) [Ratio] [facility]) Diastolic blood 90 mm[Hg] 90 mm[Hg] [facility] Systolic blood 120 mm[Hg] 120 mm[Hg] [facility] Body weight 150 lb 150 lb [facility] ([facility] Body height 62 in 62 in [facility] ([facility] Heart rate 94 /min 94 /min [facility] ([facility]) Respiratory rate 16 /min 16 /min [facility] ( [facility]) Body mass index 27.4 kg/m2 27.4 kg/m2 [facility] ([facility] (BMI) [Ratio] [facility]) Diastolic blood 90 mm[Hg] 90 mm[Hg] [facility] Systolic blood 120 mm[Hg] 120 mm[Hg] [facility] Body weight 150 lb 150 lb [facility] ([facility]) Body height 62 in 62 in [facility] ([facility]) Heart rate 94 /min 94 /min [facility]) Respiratory rate 16 /min 16 /min [facility] ( [facility]) Body mass index 27.4 kg/m2 27.4 kg/m2 [facility] ([facility] (BMI) [Ratio] [facility]) Diastolic blood 90 mm[Hg] 90 mm[Hg] [facility] Systolic blood 120 mm[Hg] 120 mm[Hg] [facility] Body weight 150 lb 150 lb [facility] ([facility]) Body height 62 in 62 in [facility] ([facility] Heart rate 94 /min 94 /min [facility] Respiratory rate 16 /min 16 /min [facility] ( [facility]) Body mass index 29.4 kg/m2 29.4 kg/m2 [facility] ([facility] (BMI) [Ratio] [facility]) Diastolic blood 80 mm[Hg] 80 mm[Hg] [facility] Systolic blood 120 mm[Hg] 120 mm[Hg] [facility] Body weight 161 lb 161 lb [facility] ([facility] Body height 62 in 62 in [facility] ([facility] Heart rate 94 /min 94 /min [facility]) Respiratory rate 16 /min 16 /min [facility] ( [facility]) Body mass index 29.4 kg/m2 29.4 kg/m2 [facility] ([facility] (BMI) [Ratio] [facility]) Diastolic blood 80 mm[Hg] 80 mm[Hg] [facility] Systolic blood 120 mm[Hg] 120 mm[Hg] [facility] Body weight 161 lb 161 lb [facility] ([facility] Body height 62 in 62 in [facility] ([facility] Heart rate 94 /min 94 /min [facility]) Respiratory rate 16 /min 16 /min [facility] ( [facility]) Body mass index 29.4 kg/m2 29.4 kg/m2 [facility] ([facility] (BMI) [Ratio] [facility]) Diastolic blood 80 mm[Hg] 80 mm[Hg] [facility] Systolic blood 120 mm[Hg] 120 mm[Hg] [facility] Body weight 161 lb 161 lb [facility] ([facility] Body height 62 in 62 in [facility] ([facility] Heart rate 94 /min 94 /min [facility] Respiratory rate 16 /min 16 /min [facility] ( [facility]) Body mass index 29.4 kg/m2 29.4 kg/m2 [facility] ([facility] (BMI) [Ratio] [facility]) Diastolic blood 80 mm[Hg] 80 mm[Hg] [facility] Systolic blood 120 mm[Hg] 120 mm[Hg] [facility] Body weight 161 lb 161 lb [facility] ([facility]) Body height 62 in 62 in [facility] Heart rate 94 /min 94 /min [facility] ([facility]) Respiratory rate 16 /min 16 /min [facility] ( [facility]) Body mass index 29.4 kg/m2 29.4 kg/m2 [facility] ([facility] (BMI) [Ratio] [facility]) Diastolic blood 90 mm[Hg] 90 mm[Hg] [facility] Systolic blood 160 mm[Hg] 160 mm[Hg] [facility] Body weight 161 lb 161 lb [facility] ([facility]) Body height 62 in 62 in [facility] ([facility] Heart rate 94 /min 94 /min [facility] ([facility]) Respiratory rate 16 /min 16 /min [facility] ( [facility]) Body mass index 29.4 kg/m2 29.4 kg/m2 [facility] ([facility] (BMI) [Ratio] [facility]) Diastolic blood 90 mm[Hg] 90 mm[Hg] [facility] Systolic blood 160 mm[Hg] 160 mm[Hg] [facility] Body weight 161 lb 161 lb [facility] ([facility]) Body height 62 in 62 in [facility] ([facility] Heart rate 94 /min 94 /min [facility] ([facility]) Respiratory rate 16 /min 16 /min [facility] ( [facility]) Body mass index 29.4 kg/m2 29.4 kg/m2 [facility] ([facility] (BMI) [Ratio] [facility]) Diastolic blood 90 mm[Hg] 90 mm[Hg] [facility] Systolic blood 160 mm[Hg] 160 mm[Hg] [facility] Body weight 161 lb 161 lb [facility] ([facility]) Body height 62 in 62 in [facility] Heart rate 94 /min 94 /min [facility] ([facility]) Respiratory rate 16 /min 16 /min [facility] ( [facility]) Body mass index 29.4 kg/m2 29.4 kg/m2 [facility] ([facility] (BMI) [Ratio] [facility]) Diastolic blood 90 mm[Hg] 90 mm[Hg] [facility] Systolic blood 160 mm[Hg] 160 mm[Hg] [facility] Body weight 161 lb 161 lb [facility] ([facility] Body height 62 in 62 in [facility] ([facility] Heart rate 94 /min 94 /min [facility] Respiratory rate 16 /min 16 /min [facility] ( [facility]) Body mass index 29.4 kg/m2 29.4 kg/m2 [facility] ([facility] (BMI) [Ratio] [facility]) Diastolic blood 100 mm[Hg] 100 mm[Hg] [facility] Systolic blood 160 mm[Hg] 160 mm[Hg] [facility] Body weight 161 lb 161 lb [facility] ([facility] Body height 62 in 62 in [facility] ([facility] Heart rate 94 /min 94 /min [facility] Respiratory rate 16 /min 16 /min [facility] ( [facility]) Body mass index 29.4 kg/m2 29.4 kg/m2 [facility] ([facility] (BMI) [Ratio] [facility]) Diastolic blood 100 mm[Hg] 100 mm[Hg] [facility] Systolic blood 160 mm[Hg] 160 mm[Hg] [facility] Body weight 161 lb 161 lb [facility] ([facility]) Body height 62 in 62 in [facility] ([facility] Heart rate 94 /min 94 /min [facility] ([facility] Respiratory rate 16 /min 16 /min [facility] ( [facility]) Heart rate 94 /min 94 /min [facility] ([facility]) Respiratory rate 16 /min 16 /min [facility] ( [facility]) Body mass index 29.4 kg/m2 29.4 kg/m2 [facility] ([facility] (BMI) [Ratio] [facility]) Diastolic blood 100 mm[Hg] 100 mm[Hg] [facility] Systolic blood 160 mm[Hg] 160 mm[Hg] [facility] Body weight 161 lb 161 lb [facility] ([facility] Body height 62 in 62 in [facility] ([facility] Body mass index 29.4 kg/m2 29.4 kg/m2 [facility] ([facility] (BMI) [Ratio] [facility]) Diastolic blood 100 mm[Hg] 100 mm[Hg] [facility] Systolic blood 160 mm[Hg] 160 mm[Hg] [facility] Body weight 161 lb 161 lb [facility] ([facility] Body height 62 in 62 in [facility] ([facility] Heart rate 94 /min 94 /min [facility] ([facility]) Respiratory rate 16 /min 16 /min [facility] ( [facility]) Heart rate 94 /min 94 /min [facility] ([facility]) Respiratory rate 16 /min 16 /min [facility] ( [facility]) Body mass index 29.4 kg/m2 29.4 kg/m2 [facility] ([facility] (BMI) [Ratio] [facility]) Diastolic blood 80 mm[Hg] 80 mm[Hg] [facility] Systolic blood 160 mm[Hg] 160 mm[Hg] [facility] Body weight 161 lb 161 lb [facility] ([facility] Body height 62 in 62 in [facility] ([facility] Body mass index 29.4 kg/m2 29.4 kg/m2 [facility] ([facility] (BMI) [Ratio] [facility]) Diastolic blood 80 mm[Hg] 80 mm[Hg] [facility] Systolic blood 160 mm[Hg] 160 mm[Hg] [facility] Body weight 161 lb 161 lb [facility] ([facility]) Body height 62 in 62 in [facility] ([facility] Heart rate 94 /min 94 /min [facility] ([facility]) Respiratory rate 16 /min 16 /min [facility] ( [facility]) Body mass index 29.4 kg/m2 29.4 kg/m2 [facility] ([facility] (BMI) [Ratio] [facility]) Diastolic blood 80 mm[Hg] 80 mm[Hg] [facility] Systolic blood 160 mm[Hg] 160 mm[Hg] [facility] Body weight 161 lb 161 lb [facility] ([facility]) Body height 62 in 62 in [facility] ([facility]) Heart rate 94 /min 94 /min [facility] ([facility]) Respiratory rate 16 /min 16 /min [facility] ( [facility]) Body mass index 29.4 kg/m2 29.4 kg/m2 [facility] ([facility] (BMI) [Ratio] [facility]) Diastolic blood 80 mm[Hg] 80 mm[Hg] [facility] Systolic blood 160 mm[Hg] 160 mm[Hg] [facility] Body weight 161 lb 161 lb [facility] ([facility]) Body height 62 in 62 in [facility] ([facility]) Heart rate 94 /min 94 /min [facility] ([facility]) Respiratory rate 16 /min 16 /min [facility] ( [facility]) Body mass index 29.4 kg/m2 29.4 kg/m2 [facility] ([facility] (BMI) [Ratio] [facility]) Diastolic blood 80 mm[Hg] 80 mm[Hg] [facility] Systolic blood 160 mm[Hg] 160 mm[Hg] [facility] Body weight 161 lb 161 lb [facility] ([facility]) Body height 62 in 62 in [facility] ([facility] Heart rate 94 /min 94 /min [facility] ([facility] Respiratory rate 16 /min 16 /min [facility] ( [facility]) Body mass index 29.4 kg/m2 29.4 kg/m2 [facility] ([facility] (BMI) [Ratio] [facility]) Diastolic blood 80 mm[Hg] 80 mm[Hg] [facility] Systolic blood 160 mm[Hg] 160 mm[Hg] [facility] Body weight 161 lb 161 lb [facility] ([facility] Body height 62 in 62 in [facility] ([facility] Heart rate 94 /min 94 /min [facility] Respiratory rate 16 /min 16 /min [facility] ( [facility]) Body mass index 29.4 kg/m2 29.4 kg/m2 [facility] ([facility] (BMI) [Ratio] [facility]) Diastolic blood 80 mm[Hg] 80 mm[Hg] [facility] Systolic blood 160 mm[Hg] 160 mm[Hg] [facility] Body weight 161 lb 161 lb [facility] ([facility] Body height 62 in 62 in [facility] ([facility] Heart rate 94 /min 94 /min [facility] ([facility] Respiratory rate 16 /min 16 /min [facility] ( [facility]) Body mass index 29.4 kg/m2 29.4 kg/m2 [facility] ([facility] (BMI) [Ratio] [facility]) Diastolic blood 80 mm[Hg] 80 mm[Hg] [facility] Systolic blood 160 mm[Hg] 160 mm[Hg] [facility] Body weight 161 lb 161 lb [facility] ([facility] Body height 62 in 62 in [facility] ([facility] Heart rate 88 /min 88 /min [facility] ([facility] Respiratory rate 16 /min 16 /min [facility] ( [facility]) Body mass index 29.6 kg/m2 29.6 kg/m2 [facility] ([facility] (BMI) [Ratio] [facility]) Diastolic blood 80 mm[Hg] 80 mm[Hg] [facility] Systolic blood 120 mm[Hg] 120 mm[Hg] [facility] Body weight 162 lb 162 lb [facility] ([facility]) Body height 62 in 62 in [facility] ([facility]) Heart rate 88 /min 88 /min [facility] ([facility]) Respiratory rate 16 /min 16 /min [facility] ( [facility]) Body mass index 29.6 kg/m2 29.6 kg/m2 [facility] ([facility] (BMI) [Ratio] [facility]) Diastolic blood 80 mm[Hg] 80 mm[Hg] [facility] Systolic blood 120 mm[Hg] 120 mm[Hg] [facility] Body weight 162 lb 162 lb [facility] ([facility]) Body height 62 in 62 in [facility] ([facility] Heart rate 88 /min 88 /min [facility] ([facility]) Respiratory rate 16 /min 16 /min [facility] ( [facility]) Body mass index 29.6 kg/m2 29.6 kg/m2 [facility] ([facility] (BMI) [Ratio] [facility]) Diastolic blood 80 mm[Hg] 80 mm[Hg] [facility] Systolic blood 120 mm[Hg] 120 mm[Hg] [facility] Body weight 162 lb 162 lb [facility] ([facility]) Body height 62 in 62 in [facility] ([facility]) Heart rate 88 /min 88 /min [facility] ([facility]) Respiratory rate 16 /min 16 /min [facility] ( [facility]) Body mass index 29.6 kg/m2 29.6 kg/m2 [facility] ([facility] (BMI) [Ratio] [facility]) Diastolic blood 80 mm[Hg] 80 mm[Hg] [facility] Systolic blood 120 mm[Hg] 120 mm[Hg] [facility] Body weight 162 lb 162 lb [facility] ([facility]) Body height 62 in 62 in [facility] ([facility] Heart rate 88 /min 88 /min [facility] ([facility]) Respiratory rate 16 /min 16 /min [facility] ( [facility]) Body mass index 30.5 kg/m2 30.5 kg/m2 [facility] ([facility] (BMI) [Ratio] [facility]) Diastolic blood 80 mm[Hg] 80 mm[Hg] [facility] Systolic blood 120 mm[Hg] 120 mm[Hg] [facility] Body weight 167 lb 167 lb [facility] ([facility]) Body height 62 in 62 in [facility] ([facility] Heart rate 88 /min 88 /min [facility] ([facility]) Respiratory rate 16 /min 16 /min [facility] ( [facility]) Body mass index 30.5 kg/m2 30.5 kg/m2 [facility] ([facility] (BMI) [Ratio] [facility]) Diastolic blood 80 mm[Hg] 80 mm[Hg] [facility] Systolic blood 120 mm[Hg] 120 mm[Hg] [facility] Body weight 167 lb 167 lb [facility] ([facility]) Body height 62 in 62 in [facility] ([facility] Heart rate 88 /min 88 /min [facility] ([facility]) Respiratory rate 16 /min 16 /min [facility] ( [facility]) Body mass index 30.5 kg/m2 30.5 kg/m2 [facility] ([facility] (BMI) [Ratio] [facility]) Diastolic blood 80 mm[Hg] 80 mm[Hg] [facility] Systolic blood 120 mm[Hg] 120 mm[Hg] [facility] Body weight 167 lb 167 lb [facility] ([facility]) Body height 62 in 62 in [facility] ([facility] Heart rate 88 /min 88 /min [facility] Respiratory rate 16 /min 16 /min [facility] ( [facility]) Body mass index 30.5 kg/m2 30.5 kg/m2 [facility] ([facility] (BMI) [Ratio] [facility]) Diastolic blood 80 mm[Hg] 80 mm[Hg] [facility] Systolic blood 120 mm[Hg] 120 mm[Hg] [facility] Body weight 167 lb 167 lb [facility] ([facility] Body height 62 in 62 in [facility] ([facility] Heart rate 88 /min 88 /min [facility] ([facility] Respiratory rate 16 /min 16 /min [facility] ( [facility]) Body mass index 29.6 kg/m2 29.6 kg/m2 [facility] ([facility] (BMI) [Ratio] [facility]) Diastolic blood 80 mm[Hg] 80 mm[Hg] [facility] Systolic blood 120 mm[Hg] 120 mm[Hg] [facility] Body weight 162 lb 162 lb [facility] ([facility] Body height 62 in 62 in [facility] ([facility] Heart rate 88 /min 88 /min [facility] Respiratory rate 16 /min 16 /min [facility] ( [facility]) Body mass index 29.6 kg/m2 29.6 kg/m2 [facility] ([facility] (BMI) [Ratio] [facility]) Diastolic blood 80 mm[Hg] 80 mm[Hg] [facility] Systolic blood 120 mm[Hg] 120 mm[Hg] [facility] Body weight 162 lb 162 lb [facility] ([facility] Body height 62 in 62 in [facility] ([facility] Heart rate 88 /min 88 /min [facility] Respiratory rate 16 /min 16 /min [facility] ( [facility]) Body mass index 29.6 kg/m2 29.6 kg/m2 [facility] ([facility] (BMI) [Ratio] [facility]) Diastolic blood 80 mm[Hg] 80 mm[Hg] [facility] Systolic blood 120 mm[Hg] 120 mm[Hg] [facility] Body weight 162 lb 162 lb [facility] ([facility]) Body height 62 in 62 in [facility] ([facility] Heart rate 88 /min 88 /min [facility] Respiratory rate 16 /min 16 /min [facility] ( [facility]) Body mass index 29.6 kg/m2 29.6 kg/m2 [facility] ([facility] (BMI) [Ratio] [facility]) Diastolic blood 80 mm[Hg] 80 mm[Hg] [facility] Systolic blood 120 mm[Hg] 120 mm[Hg] [facility] Body weight 162 lb 162 lb [facility] ([facility] Body height 62 in 62 in [facility] ([facility]) Body mass index 29.6 kg/m2 29.6 kg/m2 [facility] ([facility] (BMI) [Ratio] [facility]) Diastolic blood 74 mm[Hg] 74 mm[Hg] [facility] Systolic blood 116 mm[Hg] 116 mm[Hg] [facility] Body weight 162 lb 162 lb [facility] ([facility]) Body height 62 in 62 in [facility] ([facility] Body mass index 29.6 kg/m2 29.6 kg/m2 [facility] ([facility] (BMI) [Ratio] [facility]) Diastolic blood 74 mm[Hg] 74 mm[Hg] [facility] Systolic blood 116 mm[Hg] 116 mm[Hg] [facility] Body weight 162 lb 162 lb [facility] ([facility]) Body height 62 in 62 in [facility] ([facility] Body mass index 29.6 kg/m2 29.6 kg/m2 [facility] ([facility] (BMI) [Ratio] [facility]) Diastolic blood 74 mm[Hg] 74 mm[Hg] [facility] Systolic blood 116 mm[Hg] 116 mm[Hg] [facility] Body weight 162 lb 162 lb [facility] ([facility] Body height 62 in 62 in [facility] ([facility] Body mass index 29.6 kg/m2 29.6 kg/m2 [facility] ([facility] (BMI) [Ratio] [facility]) Diastolic blood 74 mm[Hg] 74 mm[Hg] [facility] Systolic blood 116 mm[Hg] 116 mm[Hg] [facility] Body weight 162 lb 162 lb [facility] ([facility] Body height 62 in 62 in [facility] ([facility] Body mass index 30.2 kg/m2 30.2 kg/m2 [facility] ([facility] (BMI) [Ratio] Medical [facility]) Diastolic blood 83 mm[Hg] 83 mm[Hg] [facility] Systolic blood 125 mm[Hg] 125 mm[Hg] [facility] Body weight 165 lb 165 lb [facility] ([facility] Body height 62 in 62 in [facility] ([facility] Body mass index 30.2 kg/m2 30.2 kg/m2 [facility] ([facility] (BMI) [Ratio] Medical [facility]) Diastolic blood 83 mm[Hg] 83 mm[Hg] [facility] Systolic blood 125 mm[Hg] 125 mm[Hg] [facility] Body weight 165 lb 165 lb [facility] ([facility] Body height 62 in 62 in [facility] ([facility] Body mass index 30.2 kg/m2 30.2 kg/m2 [facility] ([facility] (BMI) [Ratio] Medical [facility]) Diastolic blood 83 mm[Hg] 83 mm[Hg] [facility] Systolic blood 125 mm[Hg] 125 mm[Hg] [facility] Body weight 165 lb 165 lb [facility] ([facility] Body height 62 in 62 in [facility] ([facility] Body mass index 30.2 kg/m2 30.2 kg/m2 [facility] ([facility] (BMI) [Ratio] Medical Ser [facility]) Diastolic blood 83 mm[Hg] 83 mm[Hg] [facility] Systolic blood 125 mm[Hg] 125 mm[Hg] [facility] Body weight 165 lb 165 lb [facility] ([facility] Body height 62 in 62 in [facility] ([facility] Body mass index 29.6 kg/m2 29.6 kg/m2 [facility] ([facility] (BMI) [Ratio] Medical Ser [facility]) Diastolic blood 80 mm[Hg] 80 mm[Hg] [facility] Systolic blood 120 mm[Hg] 120 mm[Hg] [facility] Body weight 162 lb 162 lb [facility] ([facility] Body height 62 in 62 in [facility] ([facility] Body mass index 29.6 kg/m2 29.6 kg/m2 [facility] ([facility] (BMI) [Ratio] Medical Ser vice) Diastolic blood 80 mm[Hg] 80 mm[Hg] [facility] e) Systolic blood 120 mm[Hg] 120 mm[Hg] [facility] ([facility] Body weight 162 lb 162 lb [facility] ([facility]) Body height 62 in 62 in [facility] ([facility]) Body mass index 29.6 kg/m2 29.6 kg/m2 [facility] ([facility] (BMI) [Ratio] Medical Ser [facility]) Diastolic blood 80 mm[Hg] 80 mm[Hg] [facility] ([facility] Systolic blood 120 mm[Hg] 120 mm[Hg] [facility] ([facility] Body weight 162 lb 162 lb [facility] ([facility]) Body height 62 in 62 in [employer] ([facility]) Body mass index 29.6 kg/m2 29.6 kg/m2 [facility] ([facility] (BMI) [Ratio] Medical Ser vice) Diastolic blood 80 mm[Hg] 80 mm[Hg] [facility] ([facility] Systolic blood 120 mm[Hg] 120 mm[Hg] [facility] ([facility] Body weight 162 lb 162 lb [facility] ([facility]) Body height 62 in 62 in [employer] ([facility])
[2020-07-16] MEDS ORDERED: CELECOXIB 200 MG CAPSULE PO ONE (09:12)
[2020-07-16] MEDS ORDERED: CEFAZOLIN 2 GM in DEXTROSE 5%-WATER - 50 ML IVPB ONE (09:12)
[2020-07-16] MEDS ORDERED: BUPIVACAINE LIPOSOME/PF (EXPAREL) 266 MG/20 ML VIAL ONE (09:40)
[2020-07-16] MEDS ORDERED: oxyCODONE HCL 5 MG TABLET PO PRN (10:14)
[2020-07-16] MEDS ORDERED: ONDANSETRON 4 MG/2 ML VIAL IVPUSH PRN ×2 (10:14→11:06)
[2020-07-16] MEDS ORDERED: ACETAMINOPHEN 1000 MG/100 ML VIAL (NON FORMULARY) IVPB ONE (10:14)
[2020-07-16] MEDS ORDERED: LACTATED RINGERS SOLUTION 1,000 ML IV SCH ×2 (10:15→11:15)
[2020-07-16] MEDS ORDERED: VANCOMYCIN 1,000 MG VIAL (RESTRICTED TO ID ONLY) ONE (10:17)
[2020-07-16] MEDS ORDERED: TRANEXAMIC ACID 1000 MG/10 ML VIAL IVPUSH ONE (11:00)
[2020-07-16] MEDS ORDERED: MAG HYDROX/AL HYDROX/SIMETH 30 ML UNIT-DOSE CUP PO PRN (11:06)
[2020-07-16] MEDS ORDERED: MAGNESIUM HYDROX 2400MG/30ML ORAL SUSPENSION 30 ML CUP PO PRN (11:06)
[2020-07-16] MEDS ORDERED: VANCOMYCIN 1,000 MG VIAL (RESTRICTED TO ID ONLY) IVPB ONE (12:28)
--- NOTE | 2020-07-16 12:53 | OP ---
Operative Note - Note: Operative Date: 07/16/20 (cristóbal) Pre-Operative Diagnosis: right knee djd Operation: right henry tkr Post-Operative Diagnosis: Same as Pre-op Surgeon: River Viera Testing Specialist: Osmin Renner Anesthesiologist/RAMP FLIGHT ATTENDANT: Tomás Mathur Anesthesia: Spinal, Local Specimens Removed: bone fragments Estimated Blood Loss (mls): 100
[2020-07-16] MEDS: metFORMIN HCL 500 MG TABLET (FP) PO SCH (16:01)
--- NOTE | 2020-07-16 16:25 | SPEC ---
DATE OF OPERATION: 07/16/2020 PREOPERATIVE DIAGNOSIS: Degenerative joint disease, right knee. POSTOPERATIVE DIAGNOSIS: Degenerative joint disease, right knee. PROCEDURE: Right total knee replacement with robotic-assisted navigation (Makoplasty). SURGICAL ATTENDING: River Viera M.D. TRAINING REPRESENTATIVE: Osmin Renner PA-C ANESTHESIA: Regional and spinal. CLOSURE: A Triathlon cemented knee components with a 2 femur, 2 tibia, 9 polyethylene, 29 patella, number 1 Vicryl fascia, 0 and 2-0 subcutaneous, 3-0 Monocryl subcuticular with skin glue for skin, 4-0 undyed Vicryl for pin site. ESTIMATED BLOOD LOSS: Negligible. COMPLICATIONS: None. CONDITION: To recovery room in stable condition. DESCRIPTION OF OPERATIVE PROCEDURE: Patient was taken to the operating room on July 16, 2020. Regional and general anesthesia was administered by the anesthesiologist. IV Kefzol and TXA were administered by the anesthesiologist. Well-padded pneumatic tourniquet was placed on the proximal thigh. The right lower extremity was prepped and draped in the usual sterile fashion. The leg was exsanguinated with an Esmarch bandage, and tourniquet was inflated to 275 mmHg. A 12 to 15-cm longitudinal midline incision was incised while centered over the patella. The dissection was carried down to the level of the extensor mechanism with sufficient flaps made to adequately perform the procedure. A medial parapatellar arthrotomy was then performed. We made a cuff of tissue on the patella for later closure. The patella was inverted, the knee was flexed up. The fat pad was excised. The subperiosteal dissection was on the anteromedial proximal tibia around towards the direction of the MCL. The ACL and the PCL were transected and debrided. The meniscal remnants of the medial and lateral meniscus were debrided and removed. This allowed the knee to be able to "be brought forward." The checkpoints were malleted into the tibia and into the femur. Two threaded pins were drilled anteroposteriorly proximal to the knee through the previous incision, through the anterior cortex, then just engaging the posterior cortex. To these pins was assembled the femoral navigation array. One handbreadth below the tibial tubercle, 2 stab incisions were used to drill 2 threaded pins in parallel fashion into the tibia, again through the anterior cortex and just engaging the posterior cortex. To these pins was fastened the tibial arrays. The knee was then registered with the navigation device with center of rotation of the hip, medial and lateral malleoli, both checkpoints, and multiple points on both the femur and the tibia to ensure excellent registration. The navigation device was directed off the "top of the bubbles" on both the femur and the tibia. The navigation passed within less than 0.5 mm to plan. The knee was then thoroughly inspected to remove all osteophytes both medially, laterally, and on the femur and the tibia, and whatever osteophytes were available for dissection. The knee was then taken to extension and to flexion, and stressed in both varus and valgus to assess flexion gaps. The virtual position of the components on the navigation device were then manipulated to optimize the position and to ensure equal gaps in both flexion and extension, and both medially and laterally. The robot was then brought into the field and was registered. The cuts were then made both on the femur and on the tibia as to plan. All osteophytes posteriorly were then removed as well. The gaps were then measured again in flexion and extension to be equal in both flexion and extension and medial and laterally. The femoral notch was then made, as we were doing a posterior stabilizing component, with the appropriate sized box. Trial reduction of the femur achieved excellent [id number] fit. A tibial baseplate of appropriate polyethylene thickness was "floated in the knee." It was ensured to be in the excellent position by navigation devices and was pinned in place. The knee was taken through a range of motion, and found to have excellent stability throughout flexion and extension. The patella was calibrated for thickness and osteotomized down to the appropriate level. The appropriate lollipop was used to drill the lug holes in the patella and the trial button was applied. The knee was taken through a range of motion and found to have excellent tracking of the patella, and patella from full extension to full flexion. Trial components were removed, the keel was punched and drilled, and a sclerotic bone on the tibia was drilled to help with cement interdigitation. The knee was thoroughly irrigated with the pulse antibiotic marketing communications leader. The real components were then cemented in using monitored arrangement cement techniques with antibiotic cement, and pressurization and extension. After the cement was hardened, the knee was thoroughly inspected to remove any extra cement. The real polyethylene component was then clipped into place. Range of motion, stability, and tracking were as described earlier. The checkpoints and the pins were removed. The knee was thoroughly irrigated with antibiotic irrigation. Vancomycin powder was placed into the knee for antibiotic prophylaxis. The medial parapatellar arthrotomy was then closed using number 1 Vicryl interrupted suture. After closure of the deep layer, the knee was taken through a range of motion, and found to have excellent stability of the patella with no dislocation and no undue tension on the repair. The subcutaneous was pulse antibiotic irrigated, and was then closed with 2-0 Vicryl, 3-0 Monocryl subcuticular with the skin glue for the skin. The distal tibial pin site was irrigated thoroughly as well and then closed with 4-0 undyed Vicryl. A sterile Aquacel dressing was applied, followed by a Choi dressing. Tourniquet was deflated. Total tourniquet time was approximately 75 minutes. No complications. Patient was awakened from anesthesia and transferred to recovery room in stable condition. Postoperative x-rays revealed excellent position of the components. Amy [id number] MTDD
[2020-07-16] MEDS: CEFAZOLIN 2 GM/D5W 2 GRAM/50 ML ML IVPB SCH (18:11)
[2020-07-16] MEDS: oxyCODONE HCL 5 MG TABLET PO PRN (18:12)
[2020-07-16] MEDS: ACETAMINOPHEN 325 MG TABLET (FP) PO SCH (20:49)
[2020-07-16] MEDS: oxyCODONE HCL 10 MG SUSTAINED ACTING TABLET PO SCH (21:08)
[2020-07-16] MEDS: SENNOSIDES/DOCUSATE COMBO (SENNA PLUS) TABLET (UD) PO SCH (21:10)
[2020-07-16] MEDS ORDERED: FAMOTIDINE 20 MG TABLET PO SCH ×2 (22:00)
[2020-07-17] MEDS: ACETAMINOPHEN 325 MG TABLET (FP) PO SCH ×4 (02:09→19:53)
[2020-07-17] MEDS: CEFAZOLIN 2 GM/D5W 2 GRAM/50 ML ML IVPB SCH (02:09)
[2020-07-17] MEDS: metFORMIN HCL 500 MG TABLET (FP) PO SCH ×2 (07:03→16:48)
[2020-07-17 08:16] LABS: HEMATOCRIT 33.7 % (32.4-45.2); HEMOGLOBIN 11.1 GM/dl (10.7-15.3); MCH 31.2 pg (25.7-33.7); MEAN CELL VOLUME 94.5 fl (80-96); MEAN PLT VOLUME 11.1 fl (7.5-11.1); PLATELET COUNT 299 K/MM3 (134-434); RBC 3.57 M/mm3 (3.60-5.2); RDW 13.3 % (11.6-15.6); WHITE BLOOD COUNT 12.3 K/mm3 (4.0-10.8)
--- NOTE | 2020-07-17 08:41 | PN ---
Progress Note (short form) - Note Progress Note: Ortho Pt seen and examined s/p right henry tkr pod #1 Selected Entries 07/17/20 06:00 Temperature 97.6 F Pulse Rate 93 H Respiratory 18 Rate Blood Pressure 142/68 Laboratory Tests 07/17/20 07:05 WBC 12.3 H Hgb 11.1 Hct 33.7 Plt Count 299 dressing c/d/i, rom 0-40, calf soft, nt nvi a/p PT dvt ppx pain control d/c home tomorrow if stable
[2020-07-17] MEDS: METOPROLOL TARTRATE 25 MG TABLET (FP) PO SCH (09:29)
[2020-07-17] MEDS: MULTIVITAMINS (DAILY MVI) TABLET (FP) PO SCH (09:29)
[2020-07-17] MEDS: RAMIPRIL 5 MG CAPSULE (FP) PO SCH (09:29)
[2020-07-17] MEDS: APIXABAN 5 MG TABLET PO SCH ×2 (09:29→21:26)
[2020-07-17] MEDS: SENNOSIDES/DOCUSATE COMBO (SENNA PLUS) TABLET (UD) PO SCH ×2 (09:29→21:26)
[2020-07-17] MEDS: oxyCODONE HCL 10 MG SUSTAINED ACTING TABLET PO SCH ×2 (09:30→21:26)
[2020-07-17] MEDS: FERROUS SO4 325 MG TABLET (FP) PO SCH (09:31)
[2020-07-17] MEDS: PANTOPRAZOLE 40 MG TABLET PO SCH (09:31)
[2020-07-17] MEDS: oxyCODONE HCL 5 MG TABLET PO PRN ×2 (11:50→19:52)
[2020-07-17] MEDS: diphenhydrAMINE HCL 25 MG CAPSULE (FP) PO SCH ×2 (14:08→21:26)
--- NOTE | 2020-07-17 15:16 | PN ---
Progress Note (short form) - Note Progress Note: 75F POD1 s/p R TKR under spinal anesthetic with peripheral nerve blocks. Pt states that pain is well controlled and denies any anesthetic complications. Continue current regimen.
[2020-07-18] MEDS: ACETAMINOPHEN 325 MG TABLET (FP) PO SCH ×2 (02:55→07:27)
[2020-07-18] MEDS: metFORMIN HCL 500 MG TABLET (FP) PO SCH (06:41)
[2020-07-18 07:38] LABS: HEMATOCRIT 33.1 % (32.4-45.2); HEMOGLOBIN 10.9 GM/dl (10.7-15.3); MCH 30.8 pg (25.7-33.7); MCHC 32.9 g/dl (32.0-36.0); MEAN CELL VOLUME 93.5 fl (80-96); MEAN PLT VOLUME 10.2 fl (7.5-11.1); PLATELET COUNT 260 K/MM3 (134-434); RBC 3.54 M/mm3 (3.60-5.2); RDW 13.1 % (11.6-15.6); WHITE BLOOD COUNT 10.5 K/mm3 (4.0-10.8)
[2020-07-18 09:04] VITALS: BP 130/79; PULSE 101; TEMP 98.7
--- NOTE | 2020-07-18 09:12 | PN ---
Progress Note (short form) - Note Progress Note: Ortho Pt seen and examined s/p right henry tkr pod #2 Selected Entries 07/18/20 09:02 Temperature 98.7 F Pulse Rate 101 H Respiratory 18 Rate Blood Pressure 130/79 Laboratory Tests 07/18/20 07:22 WBC 10.5 Hgb 10.9 Hct 33.1 Plt Count 260 dressing c/d/i, rom 0-40, calf soft, nt nvi a/p PT dvt ppx pain control d/c home today f/u in 1 week
--- NOTE | 2020-07-18 09:13 | DS ---
Physical Examination Vital Signs: Vital Signs Temperature 98.7 F 07/18/20 09:02 Pulse Rate 101 H 07/18/20 09:02 Respiratory Rate 18 07/18/20 09:02 Blood Pressure 130/79 07/18/20 09:02 O2 Sat by Pulse Oximetry (%) 96 07/18/20 09:02 Labs: CBC, BMP 07/18/20 07:22 Discharge Summary Problems reviewed: Yes Reason For Visit: RT TOTAL KNEE REPLACEMENT Procedures: Principal: right tkr Hospital Course: admitted for elective right henry tkr, post-op per protocol, stable for d/c Condition: Good - Instructions Diet, Activity, Other Instructions: Post-op Instructions-Total Knee Replacement Call the office for a follow-up appointment in 1 week - [phone] Resume Eliquis as directed. Pain medication was sent into your pharmacy. Apply Graduated Compression Stockings (TEDs) to both lower extremities- remove daily for hygiene ONLY Apply Sequential Compression Device (SCDs) to both Lower extremities remove for PT and hygiene ONLY Apply cold packs to affected area for 15 minutes every 2 hours. Physical Therapist will come to your home for the first 5 days. You will be set up with outpatient PT at your first post-operative visit. Patient may ambulate as tolerated-encourage self care (at least every 2-3 hours while awake) with walker or cane Maintain Aquacel (waterproof) dressing to operative wound (will be removed by surgeon at first office visit) Shower with Aquacel dressing in place-if Aquacel integrity compromised, remove and apply dry sterile dressing and notify Orthopedist. DO NOT SHOWER unless Orthopedists approves without Aquacel dressing CONTACT THE OFFICE FOR ANY CHANGE IN YOUR CONDITION (for example-fever greater than 102 degrees, excessive bleeding from operative site, purulent drainage, severe swelling or pain) GO TO THE EMERGENCY ROOM IF THERE IS A MEDICAL EMERGENCY Knee Precautions: * Keep a rolled towel under affected heel while in bed or chair (to keep knee in extension) * Keep affected leg elevated except during mealtimes * DO NOT PLACE PILLOW UNDER AFFECTED KNEE * If you have any questions, please do not hesitate to call the office - [phone]. Referrals: River Viera MD [Staff Physician] - Disposition: [facility]/HOME HEALTH CARE - Home Medications Comprehensive Discharge Medication List: Ambulatory Orders Apixaban [Eliquis] 5 mg PO BID 06/26/19 Metformin HCl [Glucophage] 500 mg PO BID 06/26/19 Metoprolol Tartrate 25 mg PO DAILY 06/26/19 Ramipril 5 mg PO DAILY 06/26/19 Semaglutide [Ozempic] 1 mg SQ WEEKLY 06/26/19 Famotidine 20 mg PO BID 07/04/20 Diphenhydramine HCl [Benadryl Capsule -] 25 mg PO ASDIR PRN 07/16/20 Ferrous Sulfate [Iron] 325 mg PO DAILY 07/16/20 Oxycodone HCl/Acetaminophen [Percocet 5-325 mg Tablet -] 1 - 2 tab PO Q6H #50 tab MDD 8 07/16/20
[2020-07-18] MEDS: RAMIPRIL 5 MG CAPSULE (FP) PO SCH (09:56)
[2020-07-18] MEDS: FERROUS SO4 325 MG TABLET (FP) PO SCH (09:57)
[2020-07-18] MEDS: oxyCODONE HCL 10 MG SUSTAINED ACTING TABLET PO SCH (09:57)
[2020-07-18] MEDS: METOPROLOL TARTRATE 25 MG TABLET (FP) PO SCH (09:57)
[2020-07-18] MEDS: APIXABAN 5 MG TABLET PO SCH (09:57)
[2020-07-18] MEDS: MULTIVITAMINS (DAILY MVI) TABLET (FP) PO SCH (09:58)
[2020-07-18] MEDS: PANTOPRAZOLE 40 MG TABLET PO SCH (09:58)
[2020-07-18] MEDS: SENNOSIDES/DOCUSATE COMBO (SENNA PLUS) TABLET (UD) PO SCH (10:26)
[2020-07-18] MEDS: diphenhydrAMINE HCL 25 MG CAPSULE (FP) PO SCH (11:27)
--- NOTE | 2020-07-18 16:21 | PATH ---
Surgical Pathology Report Patient Name: CARROLL HECK Med. Rec. #: [id number] /Age/Gender: 1945 (Age: 75) / F Account: [id number] Location: [facility] MED-SURG Taken: 07/16/2020 Received: 07/16/2020 Reported: 07/18/2020 Physicians: River Viera M.D. Specimen(s) Received RIGHT KNEE BONES Clinical History Right knee osteoarthritis Final Diagnosis RIGHT KNEE BONES, RESECTION: DEGENERATIVE JOINT DISEASE, RIGHT KNEE. Electronically Signed Esequiel Lemon M.D. Gross Description Received in formalin labeled "left knee bone," is a 6.0 x 4.5 x 5.0 cm aggregate of multiple portions of bone and soft tissue, consistent with knee bones. Areas of eburnation present. The remaining articular surfaces are aguilera-yellow and diffusely granular. The underlying trabecular bone is yellow and hard. Experimental Electronics Developer sections are submitted in one cassette, following decalcification.
== END 2020-07-18 12:25 | disposition home health service (06) | DRG 470 ==
LOC: FM/S 08:33
PROVIDERS: ADMIT Orthopaedic Surgery; ATTEND Orthopaedic Surgery
PROC: 8E0Y0CZ Robotic Assisted Procedure of Lower Extremity, Open Approach (ICD-10-PCS; 2020-07-16)
PROC: 0SRC0J9 Replacement of Right Knee Joint with Synthetic Substitute, Cemented, Open Approach (ICD-10-PCS; principal; 2020-07-16 11:35)
DX: M17.11 Unilateral primary osteoarthritis, right knee (principal)
CPT/HCPCS: 36415; 73560-TC-RT-FY; 82962; 85027; 88304-TC; 88311-TC; 94760; 97010-GP; 97116-GP; 97163-GP; J0131